=== PATIENT | female | born 1935 | race Caucasian/White ===

== ENCOUNTER 2016-12-16 16:55 | Emergency (ER) | payer MEDICARE, BC ==
[2016-12-16 17:15] VITALS: BP 125/79
--- NOTE | 2016-12-16 17:28 | EDM.PDOC ---
ED HISTORY OF PRESENT ILLNESS - General Chief Complaint: Cardiovascular Problem Stated Complaint: [facility] Time Seen by Provider: 12/16/16 17:25 Source of Information: Reports: Patient, Provider History Limitations: Reports: No limitations - History of Present Illness INITIAL COMMENTS - FREE TEXT/NARRATIVE: 81-year-old female presents to the ED per ambulance after being reviewed at the [facility] by Marietta Yanes.patient has a history of intermittent atrial fibrillation and today presented with a heart rate in the 125 but it did go up as high as a 150 at times. The patient complained of no chest pain with this was perhaps a little dizzy a little short of breath. Decision made therefore to send her to the hospital per ambulance. The medics indicate that heart rate was in the 120s for the most part in route to the hospital. Upon arrival here she is in sinus rhythm at 75 per minute so somewhere along the line she's converted back to sinus rhythm. To my knowledge she's on Cardizem and metoprolol for rate control. She denies cough or sputum production. 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 She is disoriented to time . She knows she's at the hospital but she wasn't sure she was in [place] or not. I do not believe there is a change in mental status. ECG shows sinus rhythm at 79 per minute with the occasional PVC appreciated.no recent changes in medications apparently.reason for attending the clinic today was followup of influenza B infection diagnosed on the of this month. She was on renal adjusted Tamiflu at 30 mg twice a day for 5 days which is completed. She's also been using albuterol nebulizer treatments and wheezing has improved dramatically. Her usually cares for her at the manner. Rarely coughing at present. No further fever and appetite has been well pretty well back to normal history suggests she came into the clinic because she is having a panic attack about the car not starting with elevated heart rate. She was given her heart pill which is lorazepam around this did not seem to help. She was noted to have the diaphoresis on initial exam by her PA. Symptom Onset Date: 12/16/16 Timing/Duration: Reports: Hour(s): Severity: moderate Location, General: Reports: chest (palpitations.) Quality: Reports: Same as previous episode Improves with: Reports: None (lorazepam did not help.) Worsens with: Reports: Movement (walking) Context, General: Denies: Activity, Exercise, Lifting, Sick contact, Trauma, Other Associated Symptoms (General): Reports: confusion, cough, diaphoresis, malaise ( appetite improved), shortness of breath, weakness. 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: Reports: Other (see below) (she was given lorazepam 0.5 mg at noon today for panic attack which did notalleviate her palpitations.) - Related Data Allergies/ADRs: Allergies Allergy/AdvReac Type Severity Reaction Status Date / Time donepezil [From Aricept] Allergy Stomach Verified 12/16/16 17:05 Upset influenza virus vaccine, Allergy Hives Verified 12/16/16 17:05 specific [Influenza Virus Vacc,Specific] Penicillins Allergy Hives Verified 12/16/16 17:05 streptomycin Allergy Hives Verified 12/16/16 17:05 tetracycline [Tetracycline] Allergy Hives Verified 12/16/16 17:05 Home Meds: Home Meds Amitriptyline HCl 100 mg PO BEDTIME 05/23/14 [History] Levothyroxine [Synthroid] 100 mcg PO DAILY 05/23/14 [History] Metoprolol Succinate 50 mg PO DAILY 05/23/14 [History] Ondansetron [Zofran] 4 mg PO Q8HR PRN 05/23/14 [History] atorvaSTATin [Lipitor] 10 mg PO BEDTIME 05/23/14 [History] Memantine [Namenda Xr] 14 mg PO DAILY 06/04/15 [History] Diltiazem [Dilacor XR] 240 mg PO DAILY@0600 #30 cap.er 06/06/15 [Rx] Furosemide [Lasix] 20 mg PO DAILY 06/15/15 [History] Acetaminophen [Tylenol Extra Strength] 1,000 mg PO BID PRN 12/12/15 [History] Docusate Sodium [Colace] 100 mg PO DAILY 12/12/15 [History] LORazepam [Ativan] 0.5 mg PO Q8H PRN 12/12/15 [History] Promethazine [Phenergan] 12.5 mg PO Q4H PRN 12/12/15 [History] Pantoprazole [Protonix] 40 mg PO BIDAC #60 tab.cr 12/15/15 [Rx] Warfarin [Coumadin] 2.5 mg PO DAILY 12/23/15 [History] Aspirin 81 mg PO DAILY 12/31/15 [History] Lactobacillus Acidophilus [Acidophilus] 1 cap PO BID 12/31/15 [History] Digoxin [Lanoxin] 125 mcg PO DAILY #15 tablet 12/16/16 [Rx] Past Medical History - Past Health History Medical/Surgical History: Denies Medical/Surgical History HEENT History: Reports: Impaired vision Other HEENT History: reading Glasses Cardiovascular History: Reports: Afib (chronically anticoagulated with Coumadin. ), Heart Failure, High cholesterol, Hypertension, SOB on exertion Other Cardiovascular History: Afib Respiratory History: Reports: PE Other Respiratory History: Daughters report, "Last thursday pt came in with blood clot in L lung and bilateral legs." Pt was in the hospital for 4 days in Jun 2015. 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: Reports: Other OB/BYN History: Hysterectomy Musculoskeletal History: Reports: Back pain, chronic, Other (see below) Other Musculoskeletal History: degenrative joint disease Neurological History: Reports: Other (see below) (Organic brain disease and is on Namenda.) Psychiatric History: Reports: Anxiety, Dementia Endocrine/Metabolic History: Reports: Hypothyroidism - Infectious Disease History Infectious Disease History: Reports: Chicken pox - Past Surgical History GI Surgical History: Reports: Appendectomy, Hernia, abdominal Female Surgical History: Reports: Hysterectomy Endocrine Surgical History: Reports: None Musculoskeletal Surgical History: Reports: Hip replacement Other Musculoskeletal Surgeries/Procedures:: left Social & Family History - Family History Family Medical History: Noncontributory HEENT: Reports: None - Tobacco Use Smoking Status *Q: Never Smoker Second Hand Smoke Exposure: No - Caffeine Use Caffeine Use: Reports: None - Alcohol Use Days Per Week of Alcohol Use: 0 Number of Drinks Per Day: 0 Total Drinks Per Week: 0 - Recreational Drug Use Recreational Drug Use: No - Living Situation & Occupation Living situation: Reports: other (Both her and her lived in the [facility]--assisted [place]) Occupation: retired ED ROS GENERAL - Review of Systems Review Of Systems: See Below Constitutional: Reports: weakness, other (seems to be recovering very well from influenza type B diagnosed on December 12). Denies: fever, chills, malaise, fatigue, decreased appetite, weight loss HEENT: Reports: No symptoms Respiratory: Denies: Shortness of Breath, Wheezing, Pleuritic Chest Pain, Cough , Sputum, Hemoptysis Cardiovascular: Reports: Blood pressure problem (better now.), Edema (little bit in her ankles chronically), Palpitations. Denies: Chest pain, Claudication (chronic hypertension controlled with medications), Lightheadedness, Orthopnea GI/Abdominal: Reports: Constipation, Decreased appetite : Reports: frequency, incontinence (both urge and stress incontinence) Musculoskeletal: Reports: shoulder pain (sometimes shoulder pain), back pain, joint pain (knees and hips at times) Skin: Reports: no symptoms Neurological: Reports: Confusion (has organic brain disease.), Other (as no short-term memory left.) Psychiatric: Reports: Anxiety, Confusion Hematologic/Lymphatic: Reports: no symptoms Immunologic: Reports: no symptoms ED EXAM, GENERAL - Physical Exam Exam: See Below Exam Limited By: No limitations General Appearance: alert, WD/WN, no apparent distress, other (very pleasant lady) Eye Exam: bilateral eye: normal inspection Ears: normal TMs Throat/Mouth: Normal inspection, Normal lips, Normal oropharynx Head: atraumatic, normocephalic Neck: normal inspection, supple, non-tender, full range of motion. No: carotid bruit, lymphadenopathy (R) Respiratory/Chest: no respiratory distress, no accessory muscle use, crackles ( few crackles appreciated bases of lungs bilaterally a little worse on the right as compared to the left.) Cardiovascular: regular rate, rhythm (sinus rhythm at 75 per minute), no gallop , no murmur, no rub. No: normal peripheral pulses Peripheral Pulses: 1+: posterior tibial (L), posterior tibial (R), dorsalis pedis (L), dorsalis pedis (R) GI/Abdominal: normal bowel sounds, soft, non tender, no organomegaly, other (no abdominal surgical scars noted.) Back Exam: normal inspection, full range of motion. No: CVA tenderness (L), CVA tenderness (R), paraspinal tenderness Extremities: pedal edema (mild pedal edema around the ankles bilaterally. She is wearing compression stockings) Neurological: alert, CN II-XII intact, normal reflexes, no motor/sensory deficits. No: oriented, normal cognition Psychiatric: normal affect, normal mood Skin Exam: Warm, Dry, Intact, Normal color, No rash EKG INTERPRETATION EKG Date: 12/16/16 Time: 17:10 Rhythm: NSR Rate (beats/min): 79 (occasional PVC.) [place]: LAD-left axis deviation (mild left testis deviation at -14.) P-wave: present QRS: normal ST-T: normal QT: normal Course - Vital Signs Last Recorded V/S: Last Vital Signs Temp 36.7 C 12/16/16 16:55 Pulse 78 12/16/16 16:55 Resp 17 12/16/16 16:55 BP 125/79 12/16/16 16:55 Pulse Ox 95 12/16/16 16:55 - Orders/Labs/Meds Orders: Active Orders 24 hr Category Date Time Status EKG Documentation Completion [RC] STAT Care 12/16/16 17:27 Active Oxygen Therapy [RC] ASDIRECTED Care 12/16/16 17:27 Active Chest 1V Frontal [CR] Stat Exams 12/16/16 17:26 Taken URINALYSIS W/MICROSCOPIC [UA W/MICROSCOPIC] [URIN] Stat Lab 12/16/16 17:27 Uncollected Sodium Chloride 0.9% [Normal Saline] 1,000 ml Med 12/16/16 17:30 Active IV ASDIRECTED Medication Orders Sodium Chloride (Normal Saline) 1,000 mls @ 100 mls/hr IV ASDIRECTED EDWARD Last Admin: 12/16/16 17:35 Dose: 100 mls/hr Labs: Laboratory Tests 12/16/16 12/16/16 12/16/16 Range/Units 18:05 18:05 18:05 WBC 8.66 (3.98-10.04) K/mm3 RBC 4.58 (3.98-5.22) M/mm3 Hgb 13.5 (11.2-15.7) gm/L Hct 41.5 (34.1-44.9) % MCV 90.6 (79.4-94.8) fl MCH 29.5 (25.6-32.2) pg MCHC 32.5 (32.2-35.5) g/dl RDW Std Deviation 69.0 H (36.4-46.3) fL Plt Count 221 (182-369) K/mm3 MPV 11.0 (9.4-12.3) fl Neutrophils % (Manual) 68 H (40-60) % Band Neutrophils % 0 (0-10) % Lymphocytes % (Manual) 18 L (20-40) % Atypical Lymphs % 0 % Monocytes % (Manual) 11 H (2-10) % Eosinophils % (Manual) 3 (0.7-5.8) % Basophils % (Manual) 0 L (0.1-1.2) Platelet Estimate Adequate Plt Morphology Comment Normal RBC Morph Comment Normal PT 42.0 H (8.0-13.0) SECONDS INR 3.55 Sodium 143 (136-145) mEq/L Potassium 4.1 (3.5-5.1) mEq/L Chloride 108 H (98-107) mEq/L Carbon Dioxide 25 (21-32) mEq/L Anion Gap 14.1 (5-15) BUN 30 H (7-18) mg/dL Creatinine 1.5 H (0.55-1.02) mg/dL Est Cr Clr Drug Dosing 23.26 mL/min Estimated GFR (MDRD) 33 (>60) mL/min BUN/Creatinine Ratio 20.0 H (14-18) Glucose 107 (83-115) mg/dL Calcium 8.9 (8.5-10.1) mg/dL Magnesium 2.2 (1.8-2.4) mg/dl Total Bilirubin 0.2 (0.2-1.0) mg/dL AST 33 (15-37) U/L ALT 37 (14-59) U/L Alkaline Phosphatase 127 H (46-116) U/L CK-MB (CK-2) 1.2 (0-3.6) ng/ml Troponin I < 0.017 (0.00-0.056) ng/mL C-Reactive Protein < 0.2 (<1.0) mg/dL B-Natriuretic Peptide (0-100) pg/mL Total Protein 6.7 (6.4-8.2) g/dl Albumin 3.1 L (3.4-5.0) g/dl Globulin 3.6 gm/dL Albumin/Globulin Ratio 0.9 L (1-2) // Range/Units 18:05 WBC (3.98-10.04) K/mm3 RBC (3.98-5.22) M/mm3 Hgb (11.2-15.7) gm/L Hct (34.1-44.9) % MCV (79.4-94.8) fl MCH (25.6-32.2) pg MCHC (32.2-35.5) g/dl RDW Std Deviation (36.4-46.3) fL Plt Count (182-369) K/mm3 MPV (9.4-12.3) fl Neutrophils % (Manual) (40-60) % Band Neutrophils % (0-10) % Lymphocytes % (Manual) (20-40) % Atypical Lymphs % % Monocytes % (Manual) (2-10) % Eosinophils % (Manual) (0.7-5.8) % Basophils % (Manual) (0.1-1.2) Platelet Estimate Plt Morphology Comment RBC Morph Comment PT (8.0-13.0) SECONDS INR Sodium (136-145) mEq/L Potassium (3.5-5.1) mEq/L Chloride (98-107) mEq/L Carbon Dioxide (21-32) mEq/L Anion Gap (5-15) BUN (7-18) mg/dL Creatinine (0.55-1.02) mg/dL Est Cr Clr Drug Dosing mL/min Estimated GFR (MDRD) (>60) mL/min BUN/Creatinine Ratio (14-18) Glucose (83-115) mg/dL Calcium (8.5-10.1) mg/dL Magnesium (1.8-2.4) mg/dl Total Bilirubin (0.2-1.0) mg/dL AST (15-37) U/L ALT (14-59) U/L Alkaline Phosphatase (46-116) U/L CK-MB (CK-2) (0-3.6) ng/ml Troponin I (0.00-0.056) ng/mL C-Reactive Protein (<1.0) mg/dL B-Natriuretic Peptide 310 H (0-100) pg/mL Total Protein (6.4-8.2) g/dl Albumin (3.4-5.0) g/dl Globulin gm/dL Albumin/Globulin Ratio (1-2) Meds: Medications Generic Name Dose Route Start Last Admin Trade Name Freq PRN Reason Stop Dose Admin Sodium Chloride 1,000 mls @ 100 mls/hr 12/16/16 17:30 12/16/16 17:35 Normal Saline IV Not Given ASDIRECTED EDWARD Discontinued Medications Generic Name Dose Route Start Last Admin Trade Name Freq PRN Reason Stop Dose Admin Furosemide 40 mg 12/16/16 18:52 Lasix PO 12/16/16 18:53 ONETIME ONE - Radiology Interpretation Free Text/Narrative:: 81-year-old female transferred to our hospital for evaluation of rapid atrial fibrillation when at at the [facility] this afternoon. Rate went as high as 150 per minute. She had attended the clinic because of panic attack and care provider recognizes his palpitations in her chest. She has a history of intermittent atrial fibrillation. She is currently on Cardizem 240 mg once daily and metoprolol 50 twice a day for rate control. She was in the 120s en route to [place] in the [place] and somewhere along the line she's converted back to sinus rhythm in the ED she is now 75 per minute with no signs of ischemia. She does have a few crackles in both bases of her lungs. Plan routine labs including serum magnesium and chest x-ray to be carried out. I offered her supper but she indicates she is not hungry at this time. - Re-Assessments/Exams Free Text/Narrative Re-Assessment/Exam: 12/16/16 18:32 chest x-ray although poor inspiratory view reveals borderline cardiomegaly but clear lung fenton without evidence of pleural effusion or vascular congestion. 12/16/16 18:47 white count is 8.66. Differential pending hemoglobin 13.5 hematocrit of 41.5 PT is 42 and INR is 2.55 bit supratherapeutic. BNP is mildly elevated at 310. Pleasant normal term 21,000. Awaiting the rest of her chemistry and cardiac markers. Departure - Departure Time of Disposition: 18:54 Disposition: Home, Self-Care 01 Condition: fair Clinical Impression: Paroxysmal atrial fibrillation with rapid ventricular response, Supratherapeutic INR Congestive heart failure Qualifiers: Congestive heart failure type: diastolic Congestive heart failure chronicity: acute on chronic Qualified Code(s): I50.33 - Acute on chronic diastolic ( congestive) heart failure Prescriptions: Digoxin [Lanoxin] 125 mcg PO DAILY #15 tablet Referrals: Rody Yanes PA-C [Primary Care Provider] - Forms: ED Department Discharge Additional Instructions: Evaluation in the emergency today in regards to development of rapid atrial fibrillation while at the clinic in [place] today for checkup. Her rate went as high as 150 beats per minute. He was therefore transported to [facility] for care. However in route to the hospital your heart converted back to normal sinus regular rhythm at 75 beats per minute. Exam however does reveal increased fluid in the bottom of both lungs and this is what happened when the heart was going too fast for a period of time. He therefore needs to take the Lasix 40 mg tablet when you get home tonight which will make you've a rate of some of the fluid out of your lungs. No medication will be one half tablet of Lanoxin 125 mcg--take one half tablet once daily to help control age of fibrillation rate. Followup with Jennifer Yanes in clinic in 10 days' time or sooner if there is any further problems .All other medications are to stay the same - My Orders Last 24 Hours: My Active Orders 12/16/16 17:26 Chest 1V Frontal [CR] Stat 12/16/16 17:27 EKG Documentation Completion [RC] STAT Oxygen Therapy [RC] ASDIRECTED URINALYSIS W/MICROSCOPIC [UA W/MICROSCOPIC] [URIN] Stat 12/16/16 17:30 Sodium Chloride 0.9% [Normal Saline] 1,000 ml IV ASDIRECTED - Assessment/Plan Last 24 Hours: My Active Orders 12/16/16 17:26 Chest 1V Frontal [CR] Stat 12/16/16 17:27 EKG Documentation Completion [RC] STAT Oxygen Therapy [RC] ASDIRECTED URINALYSIS W/MICROSCOPIC [UA W/MICROSCOPIC] [URIN] Stat 12/16/16 17:30 Sodium Chloride 0.9% [Normal Saline] 1,000 ml IV ASDIRECTED
[2016-12-16] MEDS ORDERED: Sodium Chloride 0.9% 1,000 ML IV SCH (17:30)
[2016-12-16] MEDS ORDERED: Furosemide 40 MG Tab PO ONE (18:52)
--- NOTE | 2016-12-17 07:10 | CR ---
Chest: Portable view of the chest was obtained. Comparison: Previous chest x-ray of 12/31/15. Moderately large hiatal hernia is seen. Heart size appears within normal limits for portable technique. Mild tortuosity of the thoracic aorta is seen. Linear areas of scarring noted within both lung bases. Lungs otherwise are clear. Mild scoliosis present within the spine with osteopenia. Impression: 1. Incidental findings as noted above. Nothing acute is identified. Diagnostic code #2
== END 2016-12-16 19:35 | disposition home or self-care (01) ==
LOC: SUPCPDRO 16:55 → JD.ED 16:55
DX: I48.91 Unspecified atrial fibrillation (principal); G93.9 Disorder of brain, unspecified; I50.9 Heart failure, unspecified; E78.00 Pure hypercholesterolemia, unspecified; I10 Essential (primary) hypertension; E03.9 Hypothyroidism, unspecified; F41.9 Anxiety disorder, unspecified; E05.00 Thyrotoxicosis with diffuse goiter without thyrotoxic crisis or storm; F03.90 Unspecified dementia, unspecified severity, without behavioral disturbance, psychotic disturbance, mood disturbance, and anxiety; Z88.0 Allergy status to penicillin; Z88.8 Allergy status to other drugs, medicaments and biological substances; Z79.899 Other long term (current) drug therapy
CPT/HCPCS: 36415; 71010; 80053; 82553; 83735; 83880; 84484; 85025; 85610; 86140; 93005; 99285; A9270

== ENCOUNTER 2017-06-24 10:34 | Inpatient (IN) | payer MEDICARE, BC ==
[2017-06-24] MEDS ORDERED: Sodium Chloride 0.9% 10 ML Syringe FLUSH PRN ×2 (11:19→12:44)
[2017-06-24] MEDS ORDERED: Sodium Chloride 0.9% 500 ML IV ONE (11:21)
--- NOTE | 2017-06-24 11:25 | EDM.PDOC ---
ED HPI GENERAL MEDICAL PROBLEM - General Chief Complaint: Abdominal Pain Stated Complaint: ABDOMINAL PAIN Time Seen by Provider: 06/24/17 11:07 Source of Information: Reports: Patient, Family History Limitations: Reports: Other (Alzheimer's) - History of Present Illness INITIAL COMMENTS - FREE TEXT/NARRATIVE: Patient is a 81-year-old female who presents to the ED complaining of abdominal pain, nausea, and intermittent chest discomfort. Daughters are present. Patient has a history of Alzheimer's. They report the patient has been complaining of these symptoms for the past week. She does have a history constipation. Unknown when she had her last bowel movement. In addition she has recurrent urinary tract infections. She was seen by her PCP yesterday with labwork obtained. Results this morning indicated elevated white blood count and CRP. Thus the patient was instructed to come to the ED for further evaluation and treatment. Pain to the abdomen is to the upper and lower portion. Patient is unclear on describing the type of pain. She has no fever although she reports the ED with temperature 99.9. She denies any chest, shows breath, nausea, dysuria with admission to the ED. She does have history of atrial fibrillation and is on Coumadin. She's also on metoprolol and Cardizem. Past medical history includes: A. fib, heart failure, hyperglyceridemia, hypertension, PE, your current UTIs, Graves' disease, chronic back pain. Current medications as listed below. Patient's had hernia repair and also hysterectomy. She still has her gallbladder and appendix. Abdomen Pain Score (Numeric/FACES): 5 Headache Pain Score (Numeric/FACES): 8 - Related Data Allergies Allergy/AdvReac Type Severity Reaction Status Date / Time influenza virus vaccine, Allergy Hives Verified 06/24/17 18:08 specific [Influenza Virus Vacc,Specific] Penicillins Allergy Hives Verified 06/24/17 18:08 streptomycin Allergy Hives Verified 06/24/17 18:08 tetracycline [Tetracycline] Allergy Hives Verified 06/24/17 18:08 donepezil [From Aricept] AdvReac Stomach Verified 06/26/17 08:47 Upset Home Meds: Home Meds Amitriptyline HCl 100 mg PO BEDTIME 05/23/14 [History] Levothyroxine [Synthroid] 88 mcg PO ACBREAKFAST 05/23/14 [History] Metoprolol Succinate 50 mg PO DAILY 05/23/14 [History] atorvaSTATin [Lipitor] 10 mg PO BEDTIME 05/23/14 [History] Diltiazem [Dilacor XR] 240 mg PO DAILY@0600 #30 cap.er 06/06/15 [Rx] Furosemide [Lasix] 20 mg PO 0914 06/15/15 [History] LORazepam [Ativan] 0.5 - 1 mg PO Q8H PRN 12/12/15 [History] Warfarin [Coumadin] 2 mg PO 1800 12/23/15 [History] Acetaminophen 1,000 mg PO 0621 06/24/17 [History] Digoxin 62.5 mcg PO 1200 06/24/17 [History] Docusate Sodium [Colace] 100 mg PO DAILY 06/24/17 [History] Iron Aspgly&PS/B12/C/Ca/FA/Suc [Niferex-150 Forte] 1 cap PO BID 06/24/17 [ History] L. Acidophilus/Lactobac Spor [Acidophilus X-Str Captab] 1 tab PO BID 06/24/17 [ History] Memantine HCl [Namenda] 10 mg PO BID 06/24/17 [History] Ondansetron HCl [Zofran] 4 mg PO Q8H PRN 06/24/17 [History] Polyethylene Glycol 3350 [MiraLAX] 17 gm PO DAILY 06/24/17 [History] Promethazine HCl 12.5 mg PO Q4H PRN 06/24/17 [History] Famotidine [Pepcid] 20 mg PO BID #60 tablet 06/26/17 [Rx] Levofloxacin [Levaquin] 500 mg PO Q24H #5 tablet 06/26/17 [Rx] Past Medical History - Past Health History Medical/Surgical History: Denies Medical/Surgical History HEENT History: Reports: Cataract, Impaired Vision Other HEENT History: reading Glasses Cardiovascular History: Reports: Afib, Heart Failure, High Cholesterol, Hypertension, SOB on Exertion Other Cardiovascular History: Afib Respiratory History: Reports: PE Other Respiratory History: Daughters report, "Last thursday pt came in with blood clot in L lung and bilateral legs." Pt was in the hospital for 4 days in Jun 2015. Genitourinary History: Reports: UTI, Recurrent Other Genitourinary History: graves disease [employer] History: Reports: Other OB/BYN History: Hysterectomy Musculoskeletal History: Reports: Back Pain, Chronic Other Musculoskeletal History: degenrative joint disease Neurological History: Reports: Other (See Below) Psychiatric History: Reports: Anxiety, Dementia Endocrine/Metabolic History: Reports: Hypothyroidism - Infectious Disease History Infectious Disease History: Reports: Chicken Pox - Past Surgical History GI Surgical History: Reports: Hernia, Abdominal Endocrine Surgical History: Reports: None Musculoskeletal Surgical History: Reports: Hip Replacement Social & Family History - Family History Family Medical History: Noncontributory HEENT: Reports: None - Tobacco Use Smoking Status *Q: Never Smoker Second Hand Smoke Exposure: No - Caffeine Use Caffeine Use: Reports: Coffee - Alcohol Use Days Per Week of Alcohol Use: 0 Number of Drinks Per Day: 0 Total Drinks Per Week: 0 - Recreational Drug Use Recreational Drug Use: No - Living Situation & Occupation Living situation: Reports: Other Occupation: Retired ED ROS GENERAL - Review of Systems Review Of Systems: ROS reveals no pertinent complaints other than HPI. ED EXAM, GI/ABD - Physical Exam Exam: See Below Exam Limited By: Other (Alzheimer's dementia) General Appearance: Alert, WD/WN, No Apparent Distress Ears: Hearing Grossly Normal Nose: Normal Inspection, Normal Mucosa, No Blood Throat/Mouth: Normal Inspection, Normal Oropharynx, Normal Voice, No Airway Compromise Neck: Normal Inspection, Supple, Non-Tender, Full Range of Motion Respiratory/Chest: No Respiratory Distress, Lungs Clear, Normal Breath Sounds, No Accessory Muscle Use, Chest Non-Tender Cardiovascular: Normal Peripheral Pulses, Regular Rate, Rhythm, Systolic Murmur GI/Abdominal Exam: Soft, Non-Tender, No Organomegaly, No Distention, Abnormal Bowel Sounds (Hyperactive) Back Exam: Normal Inspection. No: CVA Tenderness (L), CVA Tenderness (R) Extremities: Normal Inspection, Normal Range of Motion, Non-Tender, No Pedal Edema, Normal Capillary Refill Neurological: Alert, Oriented, CN II-XII Intact, Normal Cognition, No Motor/ Sensory Deficits Psychiatric: Normal Affect, Normal Mood Skin Exam: Warm, Dry, Intact, Normal Color, No Rash Course - Vital Signs Last Recorded V/S: Last Vital Signs Temp 98.4 F 06/28/17 11:36 Pulse 67 06/28/17 11:36 Resp 19 06/28/17 11:36 BP 111/66 06/28/17 11:36 Pulse Ox 96 06/28/17 11:36 - Orders/Labs/Meds Labs: Laboratory Tests 06/24/17 06/24/17 06/24/17 Range/Units 10:55 10:55 10:55 WBC 23.56 H (3.98-10.04) K/mm3 RBC 4.30 (3.98-5.22) M/mm3 Hgb 13.5 (11.2-15.7) gm/L Hct 40.1 (34.1-44.9) % MCV 93.3 (79.4-94.8) fl MCH 31.4 (25.6-32.2) pg MCHC 33.7 (32.2-35.5) g/dl RDW Std Deviation 46.9 H (36.4-46.3) fL Plt Count 267 (182-369) K/mm3 MPV 11.4 (9.4-12.3) fl Neut % (Auto) 89.4 H (34.0-71.1) % Lymph % (Auto) 4.6 L (19.3-51.7) % [place] % (Auto) 5.5 (4.7-12.5) % Eos % (Auto) 0.1 L (0.7-5.8) Baso % (Auto) 0.1 (0.1-1.2) % Neut # (Auto) 21.07 H (1.56-6.13) K/mm3 Lymph # (Auto) 1.09 L (1.18-3.74) K/mm3 [place] # (Auto) 1.30 H (0.24-0.36) K/mm3 Eos # (Auto) 0.02 L (0.04-0.36) K/mm3 Baso # (Auto) 0.02 (0.01-0.08) K/mm3 Manual Slide Review Abnormal smear PT 50.8 H* (8.0-13.0) SECONDS INR 4.25 Sodium 138 (136-145) mEq/L Potassium 3.2 L (3.5-5.1) mEq/L Chloride 101 (98-107) mEq/L Carbon Dioxide 28 (21-32) mEq/L Anion Gap 12.2 (5-15) BUN 18 (7-18) mg/dL Creatinine 1.5 H (0.55-1.02) mg/dL Est Cr Clr Drug Dosing 24.33 mL/min Estimated GFR (MDRD) 33 (>60) mL/min BUN/Creatinine Ratio 12.0 L (14-18) Glucose 141 H (83-115) mg/dL Lactic Acid (0.4-2.0) mmol/L Calcium 10.4 H (8.5-10.1) mg/dL Total Bilirubin 0.6 (0.2-1.0) mg/dL AST 24 (15-37) U/L ALT 24 (14-59) U/L Alkaline Phosphatase 129 H (46-116) U/L Troponin I < 0.017 (0.00-0.056) ng/mL C-Reactive Protein 26.8 H* (<1.0) mg/dL Total Protein 7.7 (6.4-8.2) g/dl Albumin 3.3 L (3.4-5.0) g/dl Globulin 4.4 gm/dL Albumin/Globulin Ratio 0.8 L (1-2) Triglycerides (<150) mg/dL Cholesterol (<200) mg/dL LDL Cholesterol Direct (<100) mg/dL HDL Cholesterol (40-59) mg/dL Lipase 135 (73-393) U/L TSH 3rd Generation 2.105 (0.358-3.74) uIU/mL Urine Color (Yellow) Urine Appearance (Clear) Urine pH (5.0-8.0) Ur Specific [place] (1.005-1.030) Urine Protein (Negative) Urine Glucose (UA) (Negative) Urine Ketones (Negative) Urine Occult Blood (Negative) Urine Nitrite (Negative) Urine Bilirubin (Negative) Urine Urobilinogen (0.2-1.0) Ur Leukocyte Esterase (Negative) Urine RBC (0-5) /hpf Urine WBC (0-5) /hpf Ur Epithelial Cells (0-5) /hpf Urine Bacteria (FEW) /hpf Urine Mucus (FEW) /hpf 06/24/17 06/24/17 06/24/17 Range/Units 10:55 11:40 12:20 WBC (3.98-10.04) K/mm3 RBC (3.98-5.22) M/mm3 Hgb (11.2-15.7) gm/L Hct (34.1-44.9) % MCV (79.4-94.8) fl MCH (25.6-32.2) pg MCHC (32.2-35.5) g/dl RDW Std Deviation (36.4-46.3) fL Plt Count (182-369) K/mm3 MPV (9.4-12.3) fl Neut % (Auto) (34.0-71.1) % Lymph % (Auto) (19.3-51.7) % [place] % (Auto) (4.7-12.5) % Eos % (Auto) (0.7-5.8) Baso % (Auto) (0.1-1.2) % Neut # (Auto) (1.56-6.13) K/mm3 Lymph # (Auto) (1.18-3.74) K/mm3 [place] # (Auto) (0.24-0.36) K/mm3 Eos # (Auto) (0.04-0.36) K/mm3 Baso # (Auto) (0.01-0.08) K/mm3 Manual Slide Review PT (8.0-13.0) SECONDS INR Sodium (136-145) mEq/L Potassium (3.5-5.1) mEq/L Chloride (98-107) mEq/L Carbon Dioxide (21-32) mEq/L Anion Gap (5-15) BUN (7-18) mg/dL Creatinine (0.55-1.02) mg/dL Est Cr Clr Drug Dosing mL/min Estimated GFR (MDRD) (>60) mL/min BUN/Creatinine Ratio (14-18) Glucose (83-115) mg/dL Lactic Acid 3.0 H (0.4-2.0) mmol/L Calcium (8.5-10.1) mg/dL Total Bilirubin (0.2-1.0) mg/dL AST (15-37) U/L ALT (14-59) U/L Alkaline Phosphatase (46-116) U/L Troponin I (0.00-0.056) ng/mL C-Reactive Protein (<1.0) mg/dL Total Protein (6.4-8.2) g/dl Albumin (3.4-5.0) g/dl Globulin gm/dL Albumin/Globulin Ratio (1-2) Triglycerides 55 (<150) mg/dL Cholesterol 142 (<200) mg/dL LDL Cholesterol Direct 68 (<100) mg/dL HDL Cholesterol 72.0 H (40-59) mg/dL Lipase (73-393) U/L TSH 3rd Generation (0.358-3.74) uIU/mL Urine Color Yellow (Yellow) Urine Appearance Clear (Clear) Urine pH 7.5 (5.0-8.0) Ur Specific [place] 1.025 (1.005-1.030) Urine Protein 2+ H (Negative) Urine Glucose (UA) Negative (Negative) Urine Ketones Negative (Negative) Urine Occult Blood Negative (Negative) Urine Nitrite Negative (Negative) Urine Bilirubin Negative (Negative) Urine Urobilinogen 0.2 (0.2-1.0) Ur Leukocyte Esterase Negative (Negative) Urine RBC Not seen (0-5) /hpf Urine WBC 0-5 (0-5) /hpf Ur Epithelial Cells Not seen (0-5) /hpf Urine Bacteria Rare (FEW) /hpf Urine Mucus Few (FEW) /hpf Meds: Medications Discontinued Medications Generic Name Dose Route Start Last Admin Trade Name Freq PRN Reason Stop Dose Admin Acetaminophen 650 mg 06/24/17 15:40 06/24/17 15:49 Tylenol RECTAL 06/24/17 15:41 650 mg NOW ONE Administration Acetaminophen 650 mg 06/24/17 17:26 Tylenol RECTAL Q6H PRN Pain (mild 1-3) Acetaminophen 975 mg 06/25/17 09:00 06/28/17 09:52 Tylenol PO 975 mg DAILY EDWARD Administration Acetaminophen 650 mg 06/25/17 22:40 06/27/17 04:59 Tylenol PO 650 mg Q6H PRN Administration Pain (mild 1-3) Albuterol/Ipratropium 3 ml 06/24/17 16:52 Duoneb 3.0-0.5 Mg/3 Ml NEB Q4H PRN Shortness Of Breath/wheezing Amitriptyline HCl 100 mg 06/24/17 21:00 06/27/17 20:23 Elavil PO 100 mg BEDTIME EDWARD Administration Bisacodyl 10 mg 06/24/17 17:35 Dulcolax RECTAL DAILY PRN Constipation Bumetanide 0.5 mg 06/26/17 08:48 06/26/17 10:19 Bumex IVPUSH 06/26/17 08:49 0.5 mg ONETIME ONE Administration Diatrizoate Meglum/Diatrizoate Sod 90 ml 06/24/17 13:50 06/24/17 13:51 Gastrografin 37% PO 06/24/17 13:51 90 ml ONETIME ONE Administration Digoxin 62.5 mcg 06/25/17 09:00 06/28/17 09:52 Lanoxin PO 62.5 mcg DAILY EDWARD Administration Diltiazem HCl 240 mg 06/25/17 06:00 06/28/17 06:47 Dilacor Xr PO 240 mg DAILY@0600 EDWARD Administration Diphtheria/Tetanus/Acell Pertussis 0.5 ml 06/25/17 11:21 Adacel IM 06/25/17 11:22 .ONCE ONE Famotidine 20 mg 06/26/17 09:00 06/28/17 09:52 Pepcid PO 20 mg BID EDWARD Administration Furosemide 20 mg 06/25/17 09:00 06/25/17 09:17 Lasix IVPUSH 20 mg DAILY EDWARD Administration Furosemide 20 mg 06/26/17 09:00 06/28/17 09:56 Lasix PO 20 mg DAILY EDWARD Administration Hydralazine HCl 20 mg 06/24/17 17:36 Apresoline IVPUSH Q4H PRN Hypertension Hydralazine HCl 20 mg 06/24/17 19:11 Apresoline IVPUSH Q4H PRN Hypertension Hydromorphone HCl 0.25 mg 06/24/17 17:27 Dilaudid IVPUSH Q2H PRN Pain (severe 7-10) Sodium Chloride 1,000 mls @ 150 mls/hr 06/24/17 11:30 06/25/17 15:56 Normal Saline IV 150 mls/hr ASDIRECTED EDWARD Administration Sodium Chloride 500 mls @ 999 mls/hr 06/24/17 11:21 06/24/17 11:45 Normal Saline IV 06/24/17 11:51 999 mls/hr .BOLUS ONE Administration Sodium Chloride 100 mls @ 65 mls/hr 06/24/17 12:45 06/24/17 13:50 Normal Saline IV 65 mls/hr ASDIRECTED EDWARD Administration Levofloxacin/Dextrose 750 mg/ 150 mls @ 100 mls/hr 06/24/17 18:30 06/24/17 20 :07 Premix IV 100 mls/hr Q24H EDWARD Administration Levofloxacin/Dextrose 750 mg/ 150 mls @ 100 mls/hr 06/26/17 18:30 Premix IV Q48H EDWARD Sodium Chloride 1,000 mls @ 50 mls/hr 06/25/17 22:30 06/25/17 22:32 Normal Saline IV 50 mls/hr ASDIRECTED EDWARD Administration Levofloxacin/Dextrose 750 mg/ 150 mls @ 100 mls/hr 06/26/17 18:30 06/26/17 18 :33 Premix IV 100 mls/hr Q48H EDWARD Administration Magnesium Sulfate 2 gm/ Premix 50 mls @ 50 mls/hr 06/27/17 10:00 06/27/17 10: 01 IV 06/27/17 10:59 50 mls/hr ONETIME ONE Administration Iopamidol 100 ml 06/24/17 12:44 06/24/17 13:50 Isovue-300 (61%) IVPUSH 06/24/17 12:45 100 ml ONETIME ONE Administration Levothyroxine Sodium 88 mcg 06/25/17 09:00 Synthroid PO DAILY EDWARD Levothyroxine Sodium 88 mcg 06/25/17 06:00 06/28/17 06:47 Synthroid PO 88 mcg ACBREAKFAST EDWARD Administration Lorazepam 0.5 mg 06/26/17 08:45 06/27/17 20:24 Ativan PO 0.5 mg Q8H PRN Administration Anxiety Magnesium Oxide 400 mg 06/26/17 12:30 06/26/17 13:45 Magnesium Oxide PO 06/26/17 12:31 400 mg ONETIME ONE Administration Magnesium Sulfate 1 dose 06/24/17 17:30 Pharmacy To Dose - Magnesium Replacement .XX ASDIRECTED EDWARD Memantine 10 mg 06/24/17 21:00 06/28/17 09:51 Namenda PO 10 mg BID EDWARD Administration Metoprolol Succinate 50 mg 06/25/17 09:00 06/28/17 09:50 Toprol Xl PO 50 mg DAILY EDWARD Administration Metoprolol Tartrate 5 mg 06/24/17 17:37 Lopressor IVPUSH Q4H PRN Tachycardia Metoprolol Tartrate 5 mg 06/24/17 19:11 Lopressor IVPUSH Q4H PRN Tachycardia Non-Formulary Medication 1 tab 06/24/17 21:00 L. Acidophilus/Lactobac Spor [Acidophilus X-Str Captab] PO BID DEWARD Ondansetron HCl 4 mg 06/24/17 16:52 Zofran IV Q6H PRN Nausea/Vomiting Pantoprazole Sodium 40 mg 06/24/17 17:45 06/27/17 17:44 Protonix Iv IVPUSH Not Given DAILY [facility] Pantoprazole Sodium 40 mg 06/26/17 17:00 Protonix PO BIDMEALS [facility] Pneumococcal 13-Valent Conj Vacc 0.5 ml 06/25/17 11:22 Prevnar 13 IM 06/25/17 11:23 .ONCE ONE Potassium Chloride 1 dose 06/24/17 17:30 Pharmacy To Dose - Potassium Replacement .XX ASDIRECTED EDWARD Potassium Chloride 20 meq 06/24/17 21:00 06/25/17 00:57 Klor-Con M20 PO 06/25/17 00:01 20 meq Q3HR EDWARD Administration Potassium Chloride 40 meq 06/26/17 12:30 06/26/17 17:32 Klor-Con M20 PO 06/26/17 16:31 40 meq Q4H EDWARD Administration Sodium Chloride 10 ml 06/24/17 11:19 06/24/17 11:40 Saline Flush FLUSH 10 ml ASDIRECTED PRN Administration Keep Vein Open Sodium Chloride 10 ml 06/24/17 12:44 06/24/17 13:50 Saline Flush FLUSH 10 ml ONETIME PRN Administration IV FLUSH - Re-Assessments/Exams Free Text/Narrative Re-Assessment/Exam: Patient's vital signs on admission to the ED were 118/90 pulse 75. Urine examination blood pressure was in the low 90s. Patient does have a temperature 99.1. He was reported that patient's blood work obtained yesterday by PCP revealed a WBC of 20 and CRP 11 thus was referred to the ED for further evaluation. Unclear the patient is septic at this point but will go ahead with a 500 mils bolus of normal saline and reassess. IV was established with normal saline. Initial labs and studies include CBC, chem 14, lipase, troponin, TSH, UA, 2 view of the abdomen, blood cultures 2, lactic acid, chest x-ray, and EKG. EKG revealed: Sinus rhythm at a rate of [address] changes. Labs reviewed: White blood cell count elevated 23.56, hemoglobin 13.5, platelet count 267, neutrophil percentage is elevated 89.4 with a left shift of 21.07. PT 50.8. INR 4.5 which is supratherapeutic. Ranges post be 2-3. Sodium 138, potassium mildly low at 3.2, AG 12.2, creatinine 1.5, glucose 141, lactic acid 3.0 which is high calcium 10.4, total bilirubin 0.6, alk phosphatase 129, troponin less than 0.017, CRP is quite elevated at 26.8. Lipase 135. TSH 2.105. X-ray of the abdomen did reveal a few air-fluid levels with some mild distention of the colon present. Chest x-ray reviewed: Cardiomegaly with what appears to be tortuous aorta. Mild pulmonary vascularization. Final Interpretation pending. Reviewed with Dr. Rivera. UA is pending. CT of the abdomen and pelvis with IV/ORAl contrast ordered. 06/24/17 14:26 UA revealed no findings concerning for infection. CT the abdomen and pelvis revealed inflammatory change of the inferior head of the pancreas which is felt compatible with pancreatitis. No findings of pancreatic abscesses seen at this time. Other incidental findings as noted above.. 06/24/17 15:[address] Melendez otolaryngology surgeon hospitalists. He has accepted the patient. She will be admitted inpatient for pancreatitis, supratherapeutic INR, Hypokalemia, and abdominal pain. Departure - Departure Time of Disposition: 15:41 Disposition: Admitted As Inpatient 66 Condition: Fair Clinical Impression: Subtherapeutic international normalized ratio (INR), Hypokalemia Pancreatitis Qualifiers: Chronicity: acute Pancreatitis type: idiopathic Acute pancreatitis complication : unspecified Qualified Code(s): K85.00 - Idiopathic acute pancreatitis without necrosis or infection Abdominal pain Qualifiers: Abdominal location: generalized Qualified Code(s): R10.84 - Generalized abdominal pain - Discharge Information
[2017-06-24] MEDS ORDERED: Iopamidol 612 MG/ML 100 ML Bottle IVPUSH ONE (12:44)
[2017-06-24] MEDS ORDERED: Sodium Chloride 0.9% 100 ML IV SCH (12:45)
--- NOTE | 2017-06-24 12:58 | CR ---
Abdomen: Supine and upright views of the abdomen were obtained. Comparison: Previous abdominal x-ray of 06/23/17. Bowel gas pattern appears to be within normal limits. Left hip prosthesis is noted. Scoliosis is noted within the spine. No free air is identified. Several air-fluid levels within the colon are seen which are felt to be within normal limits. Impression: 1. Nonspecific two-view abdominal x-ray. Diagnostic code #2
--- NOTE | 2017-06-24 12:58 | CR ---
Chest: Frontal view of the chest was obtained. Comparison: Previous chest x-ray of 12/16/16. Heart size at the upper limits of normal. Moderately large hiatal hernia is seen. Minimal scarring is seen within both lung bases. Lungs otherwise are clear. Bony structures are grossly intact. Impression: 1. Incidental findings. Nothing acute is appreciated on frontal chest x-ray. Diagnostic code #2
[2017-06-24] MEDS ORDERED: Diatrizoate Meglumine/Diatrizoate Sodium 37% 120 ML Bottle PO ONE (13:50)
--- NOTE | 2017-06-24 14:35 | CT ---
CT abdomen and pelvis Technique: Multiple axial sections were obtained from above the dome of the diaphragm inferiorly through the pubic symphysis. Intravenous and oral contrast was utilized. Comparison: Previous abdominal and pelvic CT exam of 01/17/14. Findings: Moderately large hiatal hernia is seen. Small cyst is noted within the dome of the right lobe of the liver measuring 7 mm. Visualized lung bases show nothing acute. No additional abnormality is seen within the liver. Spleen appears normal. Adrenal glands show no nodule. Gallbladder shows no calcified gallstones. Kidneys show symmetric contrast enhancement without hydronephrosis or mass. Mild inflammatory change is seen off the inferior pancreatic head which is felt compatible with pancreatitis. No fluid collections are seen around the pancreas. Aorta shows no aneurysmal dilatation. No retroperitoneal adenopathy is seen. No mesenteric abnormalities are seen. No pelvic mass or adenopathy is identified. Appendix is not definitely seen. Bone window settings were reviewed which show mild compression deformity of L5 which appears old. Slight scoliosis and mild degenerative change is seen. Delayed images show contrast within the distal ureters and within the bladder. Impression: 1. Inflammatory change of the inferior head of the pancreas which is felt compatible with pancreatitis. 2. No findings of pancreatic abscess is seen at this time. 3. Other incidental findings as noted above. Diagnostic code #3
[2017-06-24] MEDS ORDERED: Acetaminophen 650 MG Supp RECTAL ONE (15:40)
[2017-06-24] MEDS ORDERED: Albuterol/Ipratropium 3.0-0.5 MG/3 ML Neb Soln NEB PRN (16:52)
[2017-06-24] MEDS ORDERED: Ondansetron 4 MG/2 ML SDV IV PRN (16:52)
[2017-06-24] MEDS ORDERED: Acetaminophen 650 MG Supp RECTAL PRN (17:26)
[2017-06-24] MEDS ORDERED: HYDROmorphone 0.5 MG/0.5 ML Syringe IVPUSH PRN (17:27)
[2017-06-24] MEDS ORDERED: Bisacodyl 10 MG Supp RECTAL PRN (17:35)
[2017-06-24] MEDS ORDERED: hydrALAZINE 20 MG/ML SDV IVPUSH PRN ×2 (17:36→19:11)
[2017-06-24] MEDS ORDERED: Metoprolol Tartrate 5 MG/5 ML SDV IVPUSH PRN ×2 (17:37→19:11)
--- NOTE | 2017-06-24 17:58 | PCM.HP ---
H&P History of Present Illness - General Date of Service: 06/24/17 Admit Problem/Dx: Admission Diagnosis/Problem Admission Diagnosis/Problem Pancreatitis Source of Information: Patient, Family, Old Records, Provider, RN, RN Notes Reviewed History Limitations: Reports: Other (Alzheimer's dementia ) - History of Present Illness Initial Comments - Free Text/Narative: Yesika Henao is an 81-year-old female presented to ED with abdominal pain , nausea, and intermittent chest discomfort. Her daughters and are present. His history of Alzheimer's. Patient is complaining of symptoms for a week does have a history of constipation. She also has frequent UTIs. It is unknown what her last BM was. She saw her normal PCP in [place] yesterday and lab work today indicated an elevated white count and CRP. She was instructed to go the ED for evaluation treatment. In the ER she complained of abdominal pain across all quadrants and was unable to describe the type of pain. She was afebrile although she did have a temp of 99.1. She denied any chest pain, shortness of breath, nausea, or dysuria when she presented to the ED. She has a history of A. fib and is on Coumadin. She is also on metoprolol and Cardizem. She still has her gallbladder and appendix. In the ED pulse was 75, respirations 19, BP 118/90, pulse ox 96% on room air. An EKG was obtained revealing a sinus rhythm at a rate of [address] changes. Labs revealed white count of 23.56 hemoglobin 13.5, platelet count 267, neutrophil percentage is elevated at 89.4 with a left shift of 21.07. PTT 50.8. INR 4.5, which is supratherapeutic. Sodium 138, potassium mildly low at 3.2, AG 12.2, creatinine 1.5, glucose 141, lactic acid 3.0 just high, calcium 10.4, total bilirubin 0.6, alk phosphatase 129, troponin less than 0.017, CRP is quite elevated at 26.8. The patient is 135 and TSH 2.105. UA was negative. Abdominal x-ray obtained in the ER shows a normal bowel gas pattern, left hip prosthesis, and scoliosis within the spine. No free air is identified. Several air-fluid levels in the colon nursing which is felt to within normal limits. Chest x-ray obtained in the ED shows a moderately large hiatal hernia with heart size in the upper limits of normal. Minimal scarring seen within both lung bases, however they're otherwise clear. Bony structures are grossly intact. CT abdomen and pelvis interpreted by Dr. Heath revealed "1. Inflammatory change of the inferior head of the pancreas which is felt compatible with pancreatitis. 2. No findings of pancreatic abscess is seen at this time. 3. Other incidental findings." Patient will be admitted to medsurgery on telemetry. She is a full code. Her primary care provider is Marietta Yanes PA-C in [place]. Onset of Symptoms: Reports: Gradual Severity: Severe Associated Symptoms: Reports: Nausea/Vomiting Abdomen Pain Score (Numeric/FACES): 5 - Related Data Allergies/Adverse Reactions: Allergies Allergy/AdvReac Type Severity Reaction Status Date / Time donepezil [From Aricept] Allergy Stomach Verified 06/24/17 18:08 Upset influenza virus vaccine, Allergy Hives Verified 06/24/17 18:08 specific [Influenza Virus Vacc,Specific] Penicillins Allergy Hives Verified 06/24/17 18:08 streptomycin Allergy Hives Verified 06/24/17 18:08 tetracycline [Tetracycline] Allergy Hives Verified 06/24/17 18:08 Home Medications: Home Meds Amitriptyline HCl 100 mg PO BEDTIME 05/23/14 [History] Levothyroxine [Synthroid] 88 mcg PO DAILY 05/23/14 [History] Metoprolol Succinate 50 mg PO DAILY 05/23/14 [History] atorvaSTATin [Lipitor] 10 mg PO BEDTIME 05/23/14 [History] Diltiazem [Dilacor XR] 240 mg PO DAILY@0600 #30 cap.er 06/06/15 [Rx] Furosemide [Lasix] 20 mg PO BID 06/15/15 [History] Acetaminophen [Tylenol Extra Strength] 1,000 mg PO BID PRN 12/12/15 [History] LORazepam [Ativan] 0.5 mg PO Q8H PRN 12/12/15 [History] Warfarin [Coumadin] 2 mg PO DAILY 12/23/15 [History] Aspirin 81 mg PO DAILY 12/31/15 [History] Digoxin 0.625 mcg PO DAILY 06/24/17 [History] Iron Aspgly&PS/B12/C/Ca/FA/Suc [Niferex-150 Forte] 1 cap PO BID 06/24/17 [ History] L. Acidophilus/Lactobac Spor [Acidophilus X-Str Captab] 1 tab PO BID 06/24/17 [ History] Memantine HCl [Namenda] 10 mg PO BID 06/24/17 [History] Ondansetron HCl [Zofran] 4 mg PO Q8H PRN 06/24/17 [History] Pantoprazole [ProTONIX] 40 mg PO BID 06/24/17 [History] Polyethylene Glycol 3350 [MiraLAX] 17 gm PO DAILY 06/24/17 [History] Promethazine HCl 12.5 mg PO Q4H PRN 06/24/17 [History] Past Medical History - Past Health History Medical/Surgical History: Denies Medical/Surgical History HEENT History: Reports: Cataract, Impaired Vision Other HEENT History: reading Glasses Cardiovascular History: Reports: Afib, Heart Failure, High Cholesterol, Hypertension, SOB on Exertion Other Cardiovascular History: Afib Respiratory History: Reports: PE Other Respiratory History: Daughters report, "Last thursday pt came in with blood clot in L lung and bilateral legs." Pt was in the hospital for 4 days in Jun 2015. Genitourinary History: Reports: UTI, Recurrent Other Genitourinary History: graves disease [employer] DEVELOPER History: Reports: Other OB/BYN History: Hysterectomy Musculoskeletal History: Reports: Back Pain, Chronic Other Musculoskeletal History: degenrative joint disease Neurological History: Reports: Other (See Below) Psychiatric History: Reports: Anxiety, Dementia Endocrine/Metabolic History: Reports: Hypothyroidism - Infectious Disease History Infectious Disease History: Reports: Chicken Pox - Past Surgical History GI Surgical History: Reports: Hernia, Abdominal Endocrine Surgical History: Reports: None Musculoskeletal Surgical History: Reports: Hip Replacement Social & Family History - Family History Family Medical History: Noncontributory HEENT: Reports: None - Tobacco Use Smoking Status *Q: Never Smoker Second Hand Smoke Exposure: No - Caffeine Use Caffeine Use: Reports: Coffee - Alcohol Use Days Per Week of Alcohol Use: 0 Number of Drinks Per Day: 0 Total Drinks Per Week: 0 - Recreational Drug Use Recreational Drug Use: No - Living Situation & Occupation Living situation: Reports: Other Occupation: Retired H&P Review of Systems - Review of Systems: Review Of Systems: See Below General: Reports: Weakness. Denies: Fever, Chills, Night Sweats HEENT: Reports: No Symptoms Pulmonary: Denies: Shortness of Breath, Wheezing, Pleuritic Chest Pain, Cough, Sputum Cardiovascular: Denies: Chest Pain, Palpitations, Dyspnea on Exertion, Edema, Lightheadedness Gastrointestinal: Reports: Abdominal Pain, Flatus, Nausea. Denies: Black Stool , Constipation, Diarrhea, Distension, Vomiting Genitourinary: Denies: Dysuria, Burning, Pain Musculoskeletal: Reports: Shoulder Pain (left), Arm Pain (left). Denies: Neck Pain, Muscle Pain Skin: Reports: No Symptoms Psychiatric: Denies: Confusion, Anxiety, Hallucinations Neurological: Reports: Headache (given tylenol in ED ), Weakness. Denies: Confusion, Dizziness, Tingling, Trouble Speaking Hematologic/Lymphatic: Reports: No Symptoms Immunologic: Reports: No Symptoms Exam - Exam Exam: See Below - Vital Signs Vital Signs: Last Vital Signs Temp 99.1 F 06/24/17 10:49 Pulse 75 06/24/17 10:49 Resp 19 06/24/17 10:49 BP 118/90 06/24/17 10:49 Pulse Ox 96 06/24/17 10:49 Weight: 140 lb - Exam Quality Assessment: Urinary Catheter, DVT Prophylaxis (Pt. supratheraputic INR) General: Alert, Oriented, Cooperative HEENT: Conjunctiva Clear, EACs Clear, EOMI, Hearing Intact, Mucosa Moist & [place] , Nares Patent, Normal Nasal Septum, Posterior Pharynx Clear, Pupils Reactive, TMs Clear (bilateral cerumen ) Neck: Supple, Trachea Midline. No: JVD Lungs: Clear to Auscultation, Normal Respiratory Effort Cardiovascular: Regular Rate, Regular Rhythm, Systolic Murmur GI/Abdominal Exam: Normal Bowel Sounds, Soft, No Distention, No Mass, Tender ( Upper quadrants ) (Female) Exam: Deferred Rectal (Female) Exam: Deferred Back Exam: Normal Inspection Extremities: Normal Inspection, Normal Range of Motion, Non-Tender, Normal Capillary Refill, Pedal Edema (3+) Peripheral Pulses: 2+: Radial (L), Radial (R), Posterior Tibial (L), Posterior Tibial (R), Dorsalis Pedis (L), Dorsalis Pedis (R) Skin: Warm, Dry, Intact Neurological: Cranial Nerves Intact, Strength Equal Bilateral, Normal Speech Neuro Extensive - Mental Status: Alert, Oriented x3, Normal Mood/Affect Neuro Extensive - Motor, Sensory, Reflexes: CN II-XII Intact (grossly ) Psychiatric: Alert, Normal Affect, Normal Mood - Patient Data Result Diagrams: 06/24/17 10:55 06/24/17 10:55 *Q Meaningful Use (ADM) - VTE *Q VTE Criteria *Q: - Stroke *Q Stroke Criteria *Q: - AMI *Q AMI Criteria *Q: - Problem List (1) Hypokalemia SNOMED Code(s): 24294104 ICD Code: E87.6 - HYPOKALEMIA Status: Acute Priority: High Current Visit: Yes (2) Pancreatitis SNOMED Code(s): 26905303 ICD Code: K85.90 - ACUTE PANCREATITIS WITHOUT NECROSIS OR INFECTION, UNSP Status: Acute Priority: High Current Visit: Yes Qualifiers: Chronicity: acute Pancreatitis type: unspecified pancreatitis type Acute pancreatitis complication: unspecified Qualified Code(s): K85.90 - Acute pancreatitis without necrosis or infection, unspecified (3) Subtherapeutic international normalized ratio (INR) SNOMED Code(s): 314920826 ICD Code: R79.1 - ABNORMAL COAGULATION PROFILE Status: Acute Priority: High Current Visit: Yes Problem List Initiated/Reviewed/Updated: Yes Orders Last 24hrs: Active Orders 24 hr Category Date Time Status Patient Status [ADT] Routine ADT 06/24/17 16:52 Active Ambulate [RC] PER UNIT ROUTINE Care 06/24/17 16:58 Active Antiembolic Devices [RC] PER UNIT ROUTINE Care 06/24/17 17:05 Active Cardiac Monitoring [RC] CONTINUOUS Care 06/24/17 16:58 Active Height and Weight [RC] DAILY Care 06/24/17 16:52 Active Intake and Output [RC] QSHIFT Care 06/24/17 16:57 Active Oxygen Therapy [RC] PRN Care 06/24/17 16:52 Active Oxygen Therapy [RC] PRN Care 06/24/17 17:27 Inactive Pulse Oximetry [RC] PRN Care 06/24/17 16:58 Active RT Aerosol Therapy [RC] ASDIRECTED Care 06/24/17 17:05 Active Up With Assistance [RC] ASDIRECTED Care 06/24/17 16:52 Active VTE/DVT Education [RC] PER UNIT ROUTINE Care 06/24/17 17:27 Active Vaccines to be Administered [RC] PER UNIT ROUTINE Care 06/24/17 17:17 Active Vital Signs [RC] Q4HR Care 06/24/17 16:52 Active Consult to Case Management [CONS] Routine Cons 06/24/17 16:52 Active Consult to Solar Development Engineer [CONS] Routine Cons 06/24/17 16:52 Active OT Evaluation and Treatment [CONS] Routine Cons 06/24/17 16:52 Active PT Evaluation and Treatment [CONS] Routine Cons 06/24/17 16:52 Active Nothing per Oral Now Diet [DIET] Diet 06/24/17 Dinner Active BASIC METABOLIC PANEL,BMP [CHEM] AM Lab 06/25/17 05:11 Ordered BASIC METABOLIC PANEL,BMP [CHEM] AM Lab 06/26/17 05:11 Ordered BASIC METABOLIC PANEL,BMP [CHEM] AM Lab 06/27/17 05:11 Ordered BASIC METABOLIC PANEL,BMP [CHEM] AM Lab 06/28/17 05:11 Ordered C-REACTIVE PROTEIN [CHEM] AM Lab 06/25/17 05:11 Ordered C-REACTIVE PROTEIN [CHEM] AM Lab 06/26/17 05:11 Ordered C-REACTIVE PROTEIN [CHEM] AM Lab 06/27/17 05:11 Ordered C-REACTIVE PROTEIN [CHEM] AM Lab 06/28/17 05:11 Ordered CBC WITH AUTO DIFF [HEME] AM Lab 06/25/17 05:11 Ordered CBC WITH AUTO DIFF [HEME] AM Lab 06/26/17 05:11 Ordered CBC WITH AUTO DIFF [HEME] AM Lab 06/27/17 05:11 Ordered CBC WITH AUTO DIFF [HEME] AM Lab 06/28/17 05:11 Ordered INR,PT,PROTHROMBIN TIME [COAG] AM Lab 06/25/17 05:11 Ordered INR,PT,PROTHROMBIN TIME [COAG] AM Lab 06/26/17 05:11 Ordered INR,PT,PROTHROMBIN TIME [COAG] AM Lab 06/27/17 05:11 Ordered INR,PT,PROTHROMBIN TIME [COAG] AM Lab 06/28/17 05:11 Ordered LACTIC ACID [CHEM] Routine Lab 06/24/17 18:00 Ordered MAGNESIUM [CHEM] AM Lab 06/25/17 05:11 Ordered MAGNESIUM [CHEM] AM Lab 06/26/17 05:11 Ordered MAGNESIUM [CHEM] AM Lab 06/27/17 05:11 Ordered MAGNESIUM [CHEM] AM Lab 06/28/17 05:11 Ordered Acetaminophen [Tylenol] Med 06/24/17 17:26 Ordered 650 mg RECTAL Q6H PRN Albuterol/Ipratropium [DuoNeb 3.0-0.5 MG/3 ML] Med 06/24/17 16:52 Ordered 3 ml NEB Q4H PRN Amitriptyline [Elavil] Med 06/24/17 21:00 Ordered 100 mg PO BEDTIME Bisacodyl [Dulcolax] Med 06/24/17 17:35 Ordered 10 mg RECTAL DAILY PRN Digoxin [Lanoxin] Med 06/25/17 09:00 Ordered 0.625 mcg PO DAILY Diltiazem [Dilacor XR] Med 06/25/17 06:00 Ordered 240 mg PO DAILY@0600 Furosemide [Lasix] Med 06/25/17 09:00 Ordered 20 mg IVPUSH DAILY HYDROmorphone [Dilaudid] Med 06/24/17 17:27 Ordered 0.25 mg IVPUSH Q2H PRN L. Acidophilus/Lactobac Spor [Acidophilus X-Str Captab] Med 06/24/17 21:00 Ordered 1 tab PO BID Levothyroxine [Synthroid] Med 06/25/17 09:00 Ordered 88 mcg PO DAILY Magnesium Rep Pharmacy to Dose [Pharmacy to Dose - Med 06/24/17 17:30 Ordered Magnesium Replacement] 1 dose .XX ASDIRECTED Memantine [Namenda] Med 06/24/17 21:00 Ordered 10 mg PO BID Metoprolol Succinate [Toprol XL] Med 06/25/17 09:00 Ordered 50 mg PO DAILY Metoprolol Tartrate [Lopressor] Med 06/24/17 17:37 Ordered 5 mg IVPUSH Q4H PRN Ondansetron [Zofran] Med 06/24/17 16:52 Ordered 4 mg IV Q6H PRN Pantoprazole [ProTONIX IV] Med 06/24/17 17:45 Ordered 40 mg IVPUSH DAILY Potassium Rep Pharmacy to Dose [Pharmacy to Dose - Med 06/24/17 17:30 Ordered Potassium Replacement] 1 dose .XX ASDIRECTED hydrALAZINE [Apresoline] Med 06/24/17 17:36 Ordered 20 mg IVPUSH Q4H PRN Antiembolic Hose [OM.PC] Per Unit Routine Oth 06/24/17 16:58 Ordered GM Immunization Reflex [OM.PC] Click To Edit Oth 06/24/17 16:52 Ordered Resuscitation Status Routine Resus Stat 06/24/17 16:52 Ordered Medication Orders Acetaminophen (Tylenol) 650 mg RECTAL Q6H PRN PRN Reason: Pain (mild 1-3) Albuterol/Ipratropium (Duoneb 3.0-0.5 Mg/3 Ml) 3 ml NEB Q4H PRN PRN Reason: Shortness Of Breath/wheezing Amitriptyline HCl (Elavil) 100 mg PO BEDTIME [facility] Bisacodyl (Dulcolax) 10 mg RECTAL DAILY PRN PRN Reason: Constipation Digoxin (Lanoxin) 0.625 mcg PO DAILY [facility] Diltiazem HCl (Dilacor Xr) 240 mg PO DAILY@0600 [facility] Furosemide (Lasix) 20 mg IVPUSH DAILY [facility] Hydralazine HCl (Apresoline) 20 mg IVPUSH Q4H PRN PRN Reason: Hypertension Hydromorphone HCl (Dilaudid) 0.25 mg IVPUSH Q2H PRN PRN Reason: Pain (severe 7-10) Sodium Chloride (Normal Saline) 1,000 mls @ 150 mls/hr IV ASDIRECTED [facility] Sodium Chloride (Normal Saline) 100 mls @ 65 mls/hr IV ASDIRECTED [facility] Last Admin: 06/24/17 13:50 Dose: 65 mls/hr Levothyroxine Sodium (Synthroid) 88 mcg PO DAILY [facility] Magnesium Sulfate (Pharmacy To Dose - Magnesium Replacement) 1 dose .XX ASDIRECTED [facility] Memantine (Namenda) 10 mg PO BID [facility] Metoprolol Succinate (Toprol Xl) 50 mg PO DAILY [facility] Metoprolol Tartrate (Lopressor) 5 mg IVPUSH Q4H PRN PRN Reason: Tachycardia Non-Formulary Medication (L. Acidophilus/Lactobac Spor [Acidophilus X-Str Captab ]) 1 tab PO BID [facility] Ondansetron HCl (Zofran) 4 mg IV Q6H PRN PRN Reason: Nausea/Vomiting Pantoprazole Sodium (Protonix Iv) 40 mg IVPUSH DAILY [facility] Potassium Chloride (Pharmacy To Dose - Potassium Replacement) 1 dose .XX ASDIRECTED [facility] Sodium Chloride (Saline Flush) 10 ml FLUSH ASDIRECTED PRN PRN Reason: Keep Vein Open Last Admin: 06/24/17 11:40 Dose: 10 ml Sodium Chloride (Saline Flush) 10 ml FLUSH ONETIME PRN PRN Reason: IV FLUSH Last Admin: 06/24/17 13:50 Dose: 10 ml Assessment/Plan Comment:: I/P: Acute: Pancreatitis -Upper quadrant abdominal pain radiating to left arm -Intermittent nausea -Afebrile -WBC 23.56 -CRP 26.8 -AST 24 -ALT 24 -Alk Phos 129 -Lactic acid 3.0 -Lipase 135 -UA negative -NPO with meds for now -IV Fluids -Start Levofloxican Supratheraputic INR -INR 4.25 in ER - Will hold next dose of warfarin and monitor Hypokalemia -3.2 in ED - Pharmacy to dose - will replete and continue to monitor Chronic: Alzheimer's dementia A. fib Heart failure hyperglycemia Hypertension H/O PE Recurrent UTIs Graves' disease chronic back pain Plan: Admit to M/S/P with telemetry SW/CM for discharge planning GI prophylaxis Pt. has supratheraputic INR so will only utilize [facility]I Hose for now. PT/OT Routine labs Other orders as indicated above She is a full code
[2017-06-24] MEDS ORDERED: Levofloxacin/Dextrose 5%-Water 750 MG in Premix Bag 1 BAG IV SCH (18:30)
[2017-06-24] MEDS: Sodium Chloride 0.9% 1,000 ML IV SCH (18:39)
[2017-06-24] MEDS: Pantoprazole 40 MG Vial IVPUSH SCH (18:41)
[2017-06-24] MEDS: Amitriptyline 25 MG Tab PO SCH (20:08)
[2017-06-24] MEDS: Potassium Chloride 20 MEQ Tab.ER PO SCH (20:08)
[2017-06-24] MEDS: Memantine 10 MG Tab PO SCH (20:08)
[2017-06-24] MEDS ORDERED: [UNRECOGNIZED DRUG - OTHER] PO SCH (21:00)
[2017-06-24] MEDS ORDERED: ACIDOPHILUS PO SCH (21:00)
[2017-06-25] MEDS: Potassium Chloride 20 MEQ Tab.ER PO SCH (00:57)
[2017-06-25] MEDS: Sodium Chloride 0.9% 1,000 ML IV SCH ×3 (02:06→15:56)
[2017-06-25] MEDS: Levothyroxine 88 MCG Tab PO SCH (06:42)
[2017-06-25] MEDS: Diltiazem 240 MG Cap.ER PO SCH (06:42)
--- NOTE | 2017-06-25 07:27 | PCM.PN ---
- General Info Date of Service: 06/25/17 Admission Dx/Problem (Free Text): Admission Diagnosis/Problem Admission Diagnosis/Problem Pancreatitis Functional Status: Reports: Pain Controlled, Tolerating Diet, Ambulating, Urinating. Denies: New Symptoms - Review of Systems General: Reports: No Symptoms HEENT: Reports: No Symptoms Pulmonary: Reports: No Symptoms Cardiovascular: Reports: No Symptoms Gastrointestinal: Reports: Abdominal Pain (Mild pain (2/10) that is much better than yesterday in upper quadrants. ), Flatus. Denies: Constipation, Diarrhea, Nausea, Vomiting Genitourinary: Reports: No Symptoms Musculoskeletal: Reports: No Symptoms Skin: Reports: No Symptoms Neurological: Reports: Confusion (baseline ). Denies: Dizziness, Headache, Numbness, Trouble Speaking, Difficulty Walking, Weakness, Gait Disturbance Psychiatric: Reports: Confusion (Baseline dimentia ). Denies: Depression, Mood Lability, Anxiety, Agitation Systems Review Comment:: Patient reports she is feeling much better. She does have some baseline confusion, although she responds appropriately to questions. - Patient Data Vitals - Most Recent: Last Vital Signs Temp 99.3 F 06/25/17 02:47 Pulse 77 06/25/17 02:47 Resp 16 06/25/17 02:47 BP 124/87 06/25/17 02:50 Pulse Ox 92 L 06/25/17 02:47 Weight - Most Recent: 181 lb 1.6 oz I&O - Last 24 Hours: Intake & Output 06/24/17 06/25/17 06/25/17 22:59 06:59 14:59 Intake Total 1852 Balance 1852 Lab Results Last 24 Hours: Laboratory Results - last 24 hr 06/24/17 06/24/17 06/25/17 Range/Units 18:26 18:40 06:00 WBC 20.26 H (3.98-10.04) K/mm3 RBC 3.94 L (3.98-5.22) M/mm3 Hgb 12.0 (11.2-15.7) gm/L Hct 37.0 (34.1-44.9) % MCV 93.9 (79.4-94.8) fl MCH 30.5 (25.6-32.2) pg MCHC 32.4 (32.2-35.5) g/dl RDW Std Deviation 47.2 H (36.4-46.3) fL Plt Count 226 (182-369) K/mm3 MPV 11.6 (9.4-12.3) fl Neut % (Auto) 90.3 H (34.0-71.1) % Lymph % (Auto) 3.7 L (19.3-51.7) % [place] % (Auto) 5.8 (4.7-12.5) % Eos % (Auto) 0 L (0.7-5.8) Baso % (Auto) 0.0 L (0.1-1.2) % Neut # (Auto) 18.29 H (1.56-6.13) K/mm3 Lymph # (Auto) 0.75 L (1.18-3.74) K/mm3 [place] # (Auto) 1.17 H (0.24-0.36) K/mm3 Eos # (Auto) 0.00 L (0.04-0.36) K/mm3 Baso # (Auto) 0.01 (0.01-0.08) K/mm3 PT (8.0-13.0) SECONDS INR Sodium (136-145) mEq/L Potassium (3.5-5.1) mEq/L Chloride (98-107) mEq/L Carbon Dioxide (21-32) mEq/L Anion Gap (5-15) BUN (7-18) mg/dL Creatinine (0.55-1.02) mg/dL Est Cr Clr Drug Dosing mL/min Estimated GFR (MDRD) (>60) mL/min BUN/Creatinine Ratio (14-18) Glucose (83-115) mg/dL Lactic Acid 1.0 (0.4-2.0) mmol/L Calcium (8.5-10.1) mg/dL Magnesium (1.8-2.4) mg/dl Total Bilirubin (0.2-1.0) mg/dL AST (15-37) U/L ALT (14-59) U/L Alkaline Phosphatase (46-116) U/L C-Reactive Protein (<1.0) mg/dL Total Protein (6.4-8.2) g/dl Albumin (3.4-5.0) g/dl Globulin gm/dL Albumin/Globulin Ratio (1-2) MRSA (PCR) Negative 06/25/17 06/25/17 Range/Units 06:00 06:00 WBC (3.98-10.04) K/mm3 RBC (3.98-5.22) M/mm3 Hgb (11.2-15.7) gm/L Hct (34.1-44.9) % MCV (79.4-94.8) fl MCH (25.6-32.2) pg MCHC (32.2-35.5) g/dl RDW Std Deviation (36.4-46.3) fL Plt Count (182-369) K/mm3 MPV (9.4-12.3) fl Neut % (Auto) (34.0-71.1) % Lymph % (Auto) (19.3-51.7) % [place] % (Auto) (4.7-12.5) % Eos % (Auto) (0.7-5.8) Baso % (Auto) (0.1-1.2) % Neut # (Auto) (1.56-6.13) K/mm3 Lymph # (Auto) (1.18-3.74) K/mm3 [place] # (Auto) (0.24-0.36) K/mm3 Eos # (Auto) (0.04-0.36) K/mm3 Baso # (Auto) (0.01-0.08) K/mm3 PT 55.5 H* (8.0-13.0) SECONDS INR 4.62 Sodium 137 (136-145) mEq/L Potassium 3.5 (3.5-5.1) mEq/L Chloride 104 (98-107) mEq/L Carbon Dioxide 24 (21-32) mEq/L Anion Gap 12.5 (5-15) BUN 13 (7-18) mg/dL Creatinine 1.0 (0.55-1.02) mg/dL Est Cr Clr Drug Dosing 36.50 mL/min Estimated GFR (MDRD) 53 (>60) mL/min BUN/Creatinine Ratio 13.0 L (14-18) Glucose 106 (83-115) mg/dL Lactic Acid (0.4-2.0) mmol/L Calcium 8.6 (8.5-10.1) mg/dL Magnesium 1.8 (1.8-2.4) mg/dl Total Bilirubin 0.5 (0.2-1.0) mg/dL AST 24 (15-37) U/L ALT 28 (14-59) U/L Alkaline Phosphatase 118 H (46-116) U/L C-Reactive Protein 27.0 H* (<1.0) mg/dL Total Protein 6.6 (6.4-8.2) g/dl Albumin 2.5 L (3.4-5.0) g/dl Globulin 4.1 gm/dL Albumin/Globulin Ratio 0.6 L (1-2) MRSA (PCR) Med Orders - Current: Current Medications Acetaminophen (Tylenol) 650 mg RECTAL Q6H PRN PRN Reason: Pain (mild 1-3) Acetaminophen (Tylenol) 975 mg PO DAILY [facility] Albuterol/Ipratropium (Duoneb 3.0-0.5 Mg/3 Ml) 3 ml NEB Q4H PRN PRN Reason: Shortness Of Breath/wheezing Amitriptyline HCl (Elavil) 100 mg PO BEDTIME [facility] Last Admin: 06/24/17 20:08 Dose: 100 mg Bisacodyl (Dulcolax) 10 mg RECTAL DAILY PRN PRN Reason: Constipation Digoxin (Lanoxin) 62.5 mcg PO DAILY [facility] Diltiazem HCl (Dilacor Xr) 240 mg PO DAILY@0600 [facility] Last Admin: 06/25/17 06:42 Dose: 240 mg Furosemide (Lasix) 20 mg IVPUSH DAILY [facility] Hydralazine HCl (Apresoline) 20 mg IVPUSH Q4H PRN PRN Reason: Hypertension Sodium Chloride (Normal Saline) 1,000 mls @ 150 mls/hr IV ASDIRECTED [facility] Last Admin: 06/25/17 02:06 Dose: 150 mls/hr Levofloxacin/Dextrose 750 mg/ (Premix) 150 mls @ 100 mls/hr IV Q24H [facility] Last Admin: 06/24/17 20:07 Dose: 100 mls/hr Levothyroxine Sodium (Synthroid) 88 mcg PO ACBREAKFAST [facility] Last Admin: 06/25/17 06:42 Dose: 88 mcg Magnesium Sulfate (Pharmacy To Dose - Magnesium Replacement) 1 dose .XX ASDIRECTED [facility] Memantine (Namenda) 10 mg PO BID [facility] Last Admin: 06/24/17 20:08 Dose: 10 mg Metoprolol Succinate (Toprol Xl) 50 mg PO DAILY [facility] Metoprolol Tartrate (Lopressor) 5 mg IVPUSH Q4H PRN PRN Reason: Tachycardia Ondansetron HCl (Zofran) 4 mg IV Q6H PRN PRN Reason: Nausea/Vomiting Pantoprazole Sodium (Protonix Iv) 40 mg IVPUSH DAILY [facility] Last Admin: 06/24/17 18:41 Dose: 40 mg Potassium Chloride (Pharmacy To Dose - Potassium Replacement) 1 dose .XX ASDIRECTED [facility] Sodium Chloride (Saline Flush) 10 ml FLUSH ASDIRECTED PRN PRN Reason: Keep Vein Open Last Admin: 06/24/17 11:40 Dose: 10 ml Sodium Chloride (Saline Flush) 10 ml FLUSH ONETIME PRN PRN Reason: IV FLUSH Last Admin: 06/24/17 13:50 Dose: 10 ml Discontinued Medications Acetaminophen (Tylenol) 650 mg RECTAL NOW ONE Stop: 06/24/17 15:41 Last Admin: 06/24/17 15:49 Dose: 650 mg Diatrizoate Meglum/Diatrizoate Sod (Gastrografin 37%) 90 ml PO ONETIME ONE Stop: 06/24/17 13:51 Last Admin: 06/24/17 13:51 Dose: 90 ml Hydralazine HCl (Apresoline) 20 mg IVPUSH Q4H PRN PRN Reason: Hypertension Hydromorphone HCl (Dilaudid) 0.25 mg IVPUSH Q2H PRN PRN Reason: Pain (severe 7-10) Sodium Chloride (Normal Saline) 500 mls @ 999 mls/hr IV .BOLUS ONE Stop: 06/24/17 11:51 Last Admin: 06/24/17 11:45 Dose: 999 mls/hr Sodium Chloride (Normal Saline) 100 mls @ 65 mls/hr IV ASDIRECTED [facility] Last Admin: 06/24/17 13:50 Dose: 65 mls/hr Iopamidol (Isovue-300 (61%)) 100 ml IVPUSH ONETIME ONE Stop: 06/24/17 12:45 Last Admin: 06/24/17 13:50 Dose: 100 ml Levothyroxine Sodium (Synthroid) 88 mcg PO DAILY [facility] Metoprolol Tartrate (Lopressor) 5 mg IVPUSH Q4H PRN PRN Reason: Tachycardia Non-Formulary Medication (L. Acidophilus/Lactobac Spor [Acidophilus X-Str Captab ]) 1 tab PO BID [facility] Potassium Chloride (Klor-Con M20) 20 meq PO Q3HR [facility] Stop: 06/25/17 00:01 Last Admin: 06/25/17 00:57 Dose: 20 meq - Exam Quality Assessment: DVT Prophylaxis (CITLALLI hose, Supratheraputic INR ) General: Alert, Cooperative, Other (mild baseline confusion ) HEENT: Pupils Equal, Pupils Reactive, Mucous Membr. Moist/[place] Neck: Supple, Trachea Midline, No JVD Lungs: Clear to Auscultation, Normal Respiratory Effort GI/Abdominal Exam: Normal Bowel Sounds, Soft, No Distention, No Mass, Tender ( Upper quadrant tenderness with palpation) (Female) Exam: Deferred Back Exam: Normal Inspection, Decreased Range of Motion Extremities: Normal Inspection, Normal Capillary Refill, Pedal Edema, Limited Range of Motion Peripheral Pulses: 2+: Radial (L), Radial (R), Posterior Tibial (L), Posterior Tibial (R), Dorsalis Pedis (L), Dorsalis Pedis (R) Skin: Warm, Dry, Intact Neurological: No New Focal Deficit, Sensation Intact Psy/Mental Status: Alert, Normal Affect, Normal Mood, Other (Mild baseline confusion.) Physical Findings Comments:: Overall patient is doing very well. She reports pain is resolving. She was nothing by mouth overnight. Labs are improving slightly. Repeat lactic acid was 1. will advance to clear liquid diet and continue to monitor patient. - Problem List & Annotations (1) Hypokalemia SNOMED Code(s): 63801294 Code(s): E87.6 - HYPOKALEMIA Status: Resolved Priority: High Current Visit: Yes (2) Pancreatitis SNOMED Code(s): 65088047 Code(s): K85.90 - ACUTE PANCREATITIS WITHOUT NECROSIS OR INFECTION, UNSP Status: Acute Priority: High Current Visit: Yes Qualifiers: Chronicity: acute Pancreatitis type: idiopathic Acute pancreatitis complication: uninfected necrosis Qualified Code(s): K85.01 - Idiopathic acute pancreatitis with uninfected necrosis (3) Subtherapeutic international normalized ratio (INR) SNOMED Code(s): 128483537 Code(s): R79.1 - ABNORMAL COAGULATION PROFILE Status: Acute Priority: High Current Visit: Yes - Problem List Review Problem List Initiated/Reviewed/Updated: Yes - My Orders Last 24 Hours: My Active Orders 06/24/17 16:52 Patient Status [ADT] Routine Height and Weight [RC] DAILY Oxygen Therapy [RC] PRN Up With Assistance [RC] ASDIRECTED Vital Signs [RC] Q4HR Consult to Case Management [CONS] Routine Consult to Mechanical Service Technician [CONS] Routine OT Evaluation and Treatment [CONS] Routine PT Evaluation and Treatment [CONS] Routine Albuterol/Ipratropium [DuoNeb 3.0-0.5 MG/3 ML] 3 ml NEB Q4H PRN Ondansetron [Zofran] 4 mg IV Q6H PRN GM Immunization Reflex [OM.PC] Click To Edit Resuscitation Status Routine 06/24/17 16:57 Intake and Output [RC] 04,16 06/24/17 16:58 Ambulate [RC] PER UNIT ROUTINE Cardiac Monitoring [RC] CONTINUOUS Pulse Oximetry [RC] PRN Antiembolic Hose [OM.PC] Per Unit Routine 06/24/17 17:05 Antiembolic Devices [RC] PER UNIT ROUTINE RT Aerosol Therapy [RC] .PRN 06/24/17 17:17 Vaccines to be Administered [RC] PER UNIT ROUTINE 06/24/17 17:26 Acetaminophen [Tylenol] 650 mg RECTAL Q6H PRN 06/24/17 17:27 Oxygen Therapy [RC] PRN VTE/DVT Education [RC] PER UNIT ROUTINE 06/24/17 17:30 Magnesium Rep Pharmacy to Dose [Pharmacy to Dose - Magnesium Replacement] 1 dose .XX ASDIRECTED Potassium Rep Pharmacy to Dose [Pharmacy to Dose - Potassium Replacement] 1 dose .XX ASDIRECTED 06/24/17 17:35 Bisacodyl [Dulcolax] 10 mg RECTAL DAILY PRN 06/24/17 17:36 hydrALAZINE [Apresoline] 20 mg IVPUSH Q4H PRN 06/24/17 17:37 Metoprolol Tartrate [Lopressor] 5 mg IVPUSH Q4H PRN 06/24/17 17:45 Pantoprazole [ProTONIX IV] 40 mg IVPUSH DAILY 06/24/17 18:30 Levofloxacin/Dextrose 5%-Water [Levaquin in D5W 750 MG/150 ML] 750 mg Premix Bag 1 bag IV Q24H 06/24/17 21:00 Amitriptyline [Elavil] 100 mg PO BEDTIME Memantine [Namenda] 10 mg PO BID 06/24/17 Dinner Nothing per Oral Now Diet [DIET] 06/25/17 06:00 CBC WITH AUTO DIFF [HEME] AM Diltiazem [Dilacor XR] 240 mg PO DAILY@0600 Levothyroxine [Synthroid] 88 mcg PO ACBREAKFAST 06/25/17 09:00 Digoxin [Lanoxin] 62.5 mcg PO DAILY Furosemide [Lasix] 20 mg IVPUSH DAILY Metoprolol Succinate [Toprol XL] 50 mg PO DAILY 06/26/17 05:11 C-REACTIVE PROTEIN [CHEM] AM CBC WITH AUTO DIFF [HEME] AM CMP [COMPREHENSIVE METABOLIC PN,CMP] [CHEM] AM INR,PT,PROTHROMBIN TIME [COAG] AM MAGNESIUM [CHEM] AM 06/27/17 05:11 C-REACTIVE PROTEIN [CHEM] AM CBC WITH AUTO DIFF [HEME] AM CMP [COMPREHENSIVE METABOLIC PN,CMP] [CHEM] AM INR,PT,PROTHROMBIN TIME [COAG] AM MAGNESIUM [CHEM] AM 06/28/17 05:11 C-REACTIVE PROTEIN [CHEM] AM CBC WITH AUTO DIFF [HEME] AM CMP [COMPREHENSIVE METABOLIC PN,CMP] [CHEM] AM INR,PT,PROTHROMBIN TIME [COAG] AM MAGNESIUM [CHEM] AM - Plan Plan:: I/P: Acute: Pancreatitis -Upper quadrant abdominal pain radiating to left arm - improving -Intermittent nausea - resolved -Afebrile -WBC 23.56 --->20.26 -CRP 26.8 --->27.0 -AST 24 -ALT 24 -Alk Phos 129 -Lactic acid 3.0--->1 -Lipase 135 - Ordered repeat today -Lipid panel negative -UA negative -NPO with meds---> advance to clear liquids -IV Fluids -Start Levofloxican Supratheraputic INR - INR 4.25 in ER ---> Now 4.62 - Will continue to hold warfarin and monitor Hypokalemia - Resolved - 3.2 in ED---> 3.5 now - Pharmacy to dose - will replete and continue to monitor Chronic: Alzheimer's dementia A. fib Heart failure hyperglycemia Hypertension H/O PE Recurrent UTIs Graves' disease chronic back pain Plan: Admit to M/S/P with telemetry SW/CM for discharge planning GI prophylaxis Pt. has supratheraputic INR so will only utilize CITLALLI Hose for now. PT/OT Routine labs Other orders as indicated above She is a full code
[2017-06-25] MEDS ORDERED: Levothyroxine 88 MCG Tab PO SCH (09:00)
[2017-06-25] MEDS ORDERED: Furosemide 20 MG/2 ML VIAL IVPUSH SCH (09:00)
[2017-06-25] MEDS: Digoxin 125 MCG Tab PO SCH (09:11)
[2017-06-25] MEDS: Metoprolol Succinate 50 MG Tab.ER PO SCH (09:14)
[2017-06-25] MEDS: Memantine 10 MG Tab PO SCH ×2 (09:15→20:38)
[2017-06-25] MEDS: Acetaminophen 325 MG Tab PO SCH (09:15)
[2017-06-25] MEDS: Pantoprazole 40 MG Vial IVPUSH SCH (09:17)
[2017-06-25] MEDS ORDERED: Modafinil 200 MG Tab PO SCH (10:15)
[2017-06-25] MEDS ORDERED: Diphtheria,Pertussis(Acell),Tetanus Vaccine 0.5 ML SDV IM ONE (11:21)
[2017-06-25] MEDS ORDERED: Pneumococcal 13-Valent Conjugate Vaccine 0.5 ML Syringe IM ONE (11:22)
[2017-06-25] MEDS: Amitriptyline 25 MG Tab PO SCH (20:38)
[2017-06-25] MEDS ORDERED: Sodium Chloride 0.9% 1,000 ML IV SCH (22:30)
[2017-06-25] MEDS: Acetaminophen 325 MG Tab PO PRN (22:47)
[2017-06-26] MEDS: Diltiazem 240 MG Cap.ER PO SCH (06:16)
[2017-06-26] MEDS: Levothyroxine 88 MCG Tab PO SCH (06:16)
[2017-06-26] MEDS ORDERED: Bumetanide 1 MG/4 ML MDV IVPUSH ONE (08:48)
--- NOTE | 2017-06-26 08:58 | PCM.PN ---
- General Info Date of Service: 06/26/17 Admission Dx/Problem (Free Text): Admission Diagnosis/Problem Admission Diagnosis/Problem Pancreatitis Yesika is seen this morning, resting comfortably in chair. Slept well last night. Denies c/o pain, no abd pain, n/v/d. Doing well overall. Labs are improving slowly, VSS. Functional Status: Reports: Pain Controlled, Tolerating Diet (nate clear liquids ; adv to full liq for breakfast), Ambulating, Urinating. Denies: New Symptoms - Review of Systems General: Denies: Fever Pulmonary: Reports: No Symptoms. Denies: Shortness of Breath, Cough Cardiovascular: Reports: No Symptoms. Denies: Chest Pain, Dyspnea on Exertion Gastrointestinal: Denies: Abdominal Pain, Diarrhea, Nausea, Vomiting Genitourinary: Reports: No Symptoms Neurological: Reports: No Symptoms - Patient Data Vitals - Most Recent: Last Vital Signs Temp 98.2 F 06/26/17 04:01 Pulse 92 06/26/17 06:18 Resp 16 06/26/17 04:01 BP 128/87 06/26/17 04:01 Pulse Ox 93 L 06/26/17 06:18 Weight - Most Recent: 189 lb 8 oz I&O - Last 24 Hours: Intake & Output 06/25/17 06/26/17 06/26/17 22:59 06:59 14:59 Intake Total 2908 1028 Output Total 500 600 Balance 2408 428 Lab Results Last 24 Hours: Laboratory Results - last 24 hr 06/25/17 06/26/17 06/26/17 Range/Units 06:00 06:05 06:05 WBC 13.86 H (3.98-10.04) K/mm3 RBC 3.78 L (3.98-5.22) M/mm3 Hgb 12.0 (11.2-15.7) gm/L Hct 35.5 (34.1-44.9) % MCV 93.9 (79.4-94.8) fl MCH 31.7 (25.6-32.2) pg MCHC 33.8 (32.2-35.5) g/dl RDW Std Deviation 47.2 H (36.4-46.3) fL Plt Count 230 (182-369) K/mm3 MPV 11.3 (9.4-12.3) fl Neut % (Auto) 85.7 H (34.0-71.1) % Lymph % (Auto) 6.3 L (19.3-51.7) % [place] % (Auto) 6.4 (4.7-12.5) % Eos % (Auto) 1.5 (0.7-5.8) Baso % (Auto) 0.1 (0.1-1.2) % Neut # (Auto) 11.86 H (1.56-6.13) K/mm3 Lymph # (Auto) 0.88 L (1.18-3.74) K/mm3 [place] # (Auto) 0.89 H (0.24-0.36) K/mm3 Eos # (Auto) 0.21 (0.04-0.36) K/mm3 Baso # (Auto) 0.02 (0.01-0.08) K/mm3 Manual Slide Review Abnormal smear PT 59.1 H* (8.0-13.0) SECONDS INR 4.90 Sodium (136-145) mEq/L Potassium (3.5-5.1) mEq/L Chloride (98-107) mEq/L Carbon Dioxide (21-32) mEq/L Anion Gap (5-15) BUN (7-18) mg/dL Creatinine (0.55-1.02) mg/dL Est Cr Clr Drug Dosing mL/min Estimated GFR (MDRD) (>60) mL/min BUN/Creatinine Ratio (14-18) Glucose (83-115) mg/dL Calcium (8.5-10.1) mg/dL Magnesium (1.8-2.4) mg/dl Total Bilirubin (0.2-1.0) mg/dL AST (15-37) U/L ALT (14-59) U/L Alkaline Phosphatase (46-116) U/L C-Reactive Protein (<1.0) mg/dL Total Protein (6.4-8.2) g/dl Albumin (3.4-5.0) g/dl Globulin gm/dL Albumin/Globulin Ratio (1-2) Lipase 80 (73-393) U/L 06/26/17 Range/Units 06:05 WBC (3.98-10.04) K/mm3 RBC (3.98-5.22) M/mm3 Hgb (11.2-15.7) gm/L Hct (34.1-44.9) % MCV (79.4-94.8) fl MCH (25.6-32.2) pg MCHC (32.2-35.5) g/dl RDW Std Deviation (36.4-46.3) fL Plt Count (182-369) K/mm3 MPV (9.4-12.3) fl Neut % (Auto) (34.0-71.1) % Lymph % (Auto) (19.3-51.7) % [place] % (Auto) (4.7-12.5) % Eos % (Auto) (0.7-5.8) Baso % (Auto) (0.1-1.2) % Neut # (Auto) (1.56-6.13) K/mm3 Lymph # (Auto) (1.18-3.74) K/mm3 [place] # (Auto) (0.24-0.36) K/mm3 Eos # (Auto) (0.04-0.36) K/mm3 Baso # (Auto) (0.01-0.08) K/mm3 Manual Slide Review PT (8.0-13.0) SECONDS INR Sodium 139 (136-145) mEq/L Potassium 3.3 L (3.5-5.1) mEq/L Chloride 105 (98-107) mEq/L Carbon Dioxide 22 (21-32) mEq/L Anion Gap 15.3 H (5-15) BUN 10 (7-18) mg/dL Creatinine 0.9 (0.55-1.02) mg/dL Est Cr Clr Drug Dosing 40.55 mL/min Estimated GFR (MDRD) > 60 (>60) mL/min BUN/Creatinine Ratio 11.1 L (14-18) Glucose 92 (83-115) mg/dL Calcium 8.2 L (8.5-10.1) mg/dL Magnesium 1.8 (1.8-2.4) mg/dl Total Bilirubin 0.4 (0.2-1.0) mg/dL AST 23 (15-37) U/L ALT 23 (14-59) U/L Alkaline Phosphatase 105 (46-116) U/L C-Reactive Protein (<1.0) mg/dL Total Protein 6.3 L (6.4-8.2) g/dl Albumin 2.3 L (3.4-5.0) g/dl Globulin 4.0 gm/dL Albumin/Globulin Ratio 0.6 L (1-2) Lipase (73-393) U/L Med Orders - Current: Current Medications Acetaminophen (Tylenol) 975 mg PO DAILY [facility] Last Admin: 06/25/17 09:15 Dose: 975 mg Acetaminophen (Tylenol) 650 mg PO Q6H PRN PRN Reason: Pain (mild 1-3) Last Admin: 06/25/17 22:47 Dose: 650 mg Albuterol/Ipratropium (Duoneb 3.0-0.5 Mg/3 Ml) 3 ml NEB Q4H PRN PRN Reason: Shortness Of Breath/wheezing Amitriptyline HCl (Elavil) 100 mg PO BEDTIME [facility] Last Admin: 06/25/17 20:38 Dose: 100 mg Bisacodyl (Dulcolax) 10 mg RECTAL DAILY PRN PRN Reason: Constipation Bumetanide (Bumex) 0.5 mg IVPUSH ONETIME ONE Stop: 06/26/17 08:49 Digoxin (Lanoxin) 62.5 mcg PO DAILY [facility] Last Admin: 06/25/17 09:11 Dose: 62.5 mcg Diltiazem HCl (Dilacor Xr) 240 mg PO DAILY@0600 [facility] Last Admin: 06/26/17 06:16 Dose: 240 mg Famotidine (Pepcid) 20 mg PO BID [facility] Furosemide (Lasix) 20 mg PO 0914 [facility] Hydralazine HCl (Apresoline) 20 mg IVPUSH Q4H PRN PRN Reason: Hypertension Levofloxacin/Dextrose 750 mg/ (Premix) 150 mls @ 100 mls/hr IV Q48H [facility] Sodium Chloride (Normal Saline) 1,000 mls @ 50 mls/hr IV ASDIRECTED [facility] Last Admin: 06/25/17 22:32 Dose: 50 mls/hr Levothyroxine Sodium (Synthroid) 88 mcg PO ACBREAKFAST [facility] Last Admin: 06/26/17 06:16 Dose: 88 mcg Lorazepam (Ativan) 0.5 mg PO Q8H PRN PRN Reason: Anxiety Magnesium Sulfate (Pharmacy To Dose - Magnesium Replacement) 1 dose .XX ASDIRECTED [facility] Memantine (Namenda) 10 mg PO BID [facility] Last Admin: 06/25/17 20:38 Dose: 10 mg Metoprolol Succinate (Toprol Xl) 50 mg PO DAILY [facility] Last Admin: 06/25/17 09:14 Dose: 50 mg Metoprolol Tartrate (Lopressor) 5 mg IVPUSH Q4H PRN PRN Reason: Tachycardia Ondansetron HCl (Zofran) 4 mg IV Q6H PRN PRN Reason: Nausea/Vomiting Potassium Chloride (Pharmacy To Dose - Potassium Replacement) 1 dose .XX ASDIRECTED [facility] Sodium Chloride (Saline Flush) 10 ml FLUSH ASDIRECTED PRN PRN Reason: Keep Vein Open Last Admin: 06/24/17 11:40 Dose: 10 ml Sodium Chloride (Saline Flush) 10 ml FLUSH ONETIME PRN PRN Reason: IV FLUSH Last Admin: 06/24/17 13:50 Dose: 10 ml Discontinued Medications Acetaminophen (Tylenol) 650 mg RECTAL NOW ONE Stop: 06/24/17 15:41 Last Admin: 06/24/17 15:49 Dose: 650 mg Acetaminophen (Tylenol) 650 mg RECTAL Q6H PRN PRN Reason: Pain (mild 1-3) Diatrizoate Meglum/Diatrizoate Sod (Gastrografin 37%) 90 ml PO ONETIME ONE Stop: 06/24/17 13:51 Last Admin: 06/24/17 13:51 Dose: 90 ml Diphtheria/Tetanus/Acell Pertussis (Adacel) 0.5 ml IM .ONCE ONE Stop: 06/25/17 11:22 Furosemide (Lasix) 20 mg IVPUSH DAILY [facility] Last Admin: 06/25/17 09:17 Dose: 20 mg Hydralazine HCl (Apresoline) 20 mg IVPUSH Q4H PRN PRN Reason: Hypertension Hydromorphone HCl (Dilaudid) 0.25 mg IVPUSH Q2H PRN PRN Reason: Pain (severe 7-10) Sodium Chloride (Normal Saline) 1,000 mls @ 150 mls/hr IV ASDIRECTED [facility] Last Admin: 06/25/17 15:56 Dose: 150 mls/hr Sodium Chloride (Normal Saline) 500 mls @ 999 mls/hr IV .BOLUS ONE Stop: 06/24/17 11:51 Last Admin: 06/24/17 11:45 Dose: 999 mls/hr Sodium Chloride (Normal Saline) 100 mls @ 65 mls/hr IV ASDIRECTED [facility] Last Admin: 06/24/17 13:50 Dose: 65 mls/hr Levofloxacin/Dextrose 750 mg/ (Premix) 150 mls @ 100 mls/hr IV Q24H [facility] Last Admin: 06/24/17 20:07 Dose: 100 mls/hr Iopamidol (Isovue-300 (61%)) 100 ml IVPUSH ONETIME ONE Stop: 06/24/17 12:45 Last Admin: 06/24/17 13:50 Dose: 100 ml Levothyroxine Sodium (Synthroid) 88 mcg PO DAILY [facility] Metoprolol Tartrate (Lopressor) 5 mg IVPUSH Q4H PRN PRN Reason: Tachycardia Non-Formulary Medication (L. Acidophilus/Lactobac Spor [Acidophilus X-Str Captab ]) 1 tab PO BID [facility] Pantoprazole Sodium (Protonix Iv) 40 mg IVPUSH DAILY [facility] Last Admin: 06/25/17 09:17 Dose: 40 mg Pantoprazole Sodium (Protonix) 40 mg PO BIDMEALS [facility] Pneumococcal 13-Valent Conj Vacc (Prevnar 13) 0.5 ml IM .ONCE ONE Stop: 06/25/17 11:23 Potassium Chloride (Klor-Con M20) 20 meq PO Q3HR [facility] Stop: 06/25/17 00:01 Last Admin: 06/25/17 00:57 Dose: 20 meq - Exam Quality Assessment: DVT Prophylaxis General: Alert, Oriented, Cooperative, No Acute Distress HEENT: Pupils Equal, EOMI, Mucous Membr. Moist/[place] Neck: Supple Lungs: Clear to Auscultation, Normal Respiratory Effort, Decreased Breath Sounds (bases) Cardiovascular: Irregular Rhythm GI/Abdominal Exam: Normal Bowel Sounds, Soft, Non-Tender (Female) Exam: Deferred Extremities: Normal Inspection Peripheral Pulses: 1+: Dorsalis Pedis (L), Dorsalis Pedis (R) Neurological: No New Focal Deficit Psy/Mental Status: Alert, Normal Affect, Normal Mood - Problem List & Annotations (1) Pancreatitis SNOMED Code(s): 94417362 Code(s): K85.90 - ACUTE PANCREATITIS WITHOUT NECROSIS OR INFECTION, UNSP Status: Acute Priority: High Current Visit: Yes Qualifiers: Chronicity: acute Pancreatitis type: idiopathic Acute pancreatitis complication: unspecified Qualified Code(s): K85.00 - Idiopathic acute pancreatitis without necrosis or infection (2) Subtherapeutic international normalized ratio (INR) SNOMED Code(s): 688859253 Code(s): R79.1 - ABNORMAL COAGULATION PROFILE Status: Acute Priority: High Current Visit: Yes (3) Hypokalemia SNOMED Code(s): 54999250 Code(s): E87.6 - HYPOKALEMIA Status: Acute Priority: High Current Visit : Yes (4) Afib, Atrial fibrillation SNOMED Code(s): 79740868 Code(s): I48.91 - UNSPECIFIED ATRIAL FIBRILLATION Status: Chronic Priority: Low Current Visit: No - Problem List Review Problem List Initiated/Reviewed/Updated: Yes - My Orders Last 24 Hours: My Active Orders 06/26/17 08:45 LORazepam [Ativan] 0.5 mg PO Q8H PRN 06/26/17 08:48 Bumetanide [Bumex] 0.5 mg IVPUSH ONETIME ONE 06/26/17 08:49 IS (RT) [RT Incentive Spirometry] [RC] Q2HWA 06/26/17 09:00 Famotidine [Pepcid] 20 mg PO BID 06/26/17 09:14 Furosemide [[place]ix] [place] [address]/26/17 Breakfast Full Liquid Diet [DIET] - Plan Plan:: I/P: Acute: Pancreatitis -Etiology- uncertain, she is on PPI at home, WBC elevated, CRP elevated -CT scan of abd with inflammation surrounding pancreas consistent with pancreatitis however lipase level not significantly elevated -IV ABX -IV hydration, rate decreased -H2 olimpia; DC PPI -Advance diet today as has tolerated clear liquids thus far; if tolerates diet may DC home tomorrow am. Supratheraputic INR - INR 4.25 in ER ---> 4.62-->4.9, likely now elevated due to levaquin abx being given - Will continue to hold warfarin and monitor - Pharmacy to dose warfarin Hypokalemia - Cont to follow and replete PRN - Pharmacy to dose Chronic: Alzheimer's dementia, stable A. fib--rate controlled; warfarin for anticoag as above Heart failure, stable, restart home lasix dose today, IV bumex x 1 dose today hyperglycemia Hypertension, stable H/O PE - on warfarin Recurrent UTIs, UA negative in ED Graves' disease chronic back pain Plan: Admit to M/S/P with telemetry SW/CM for discharge planning--if able to tolerate PO advancement to regular diet today, plan dc in next 24-48 hours pending improvement of labs and clinical status. GI prophylaxis Pt. has supratheraputic INR so will only utilize [employer]LALLI Hose for now. PT/OT Routine labs Other orders as indicated above Full code status.
[2017-06-26] MEDS: Metoprolol Succinate 50 MG Tab.ER PO SCH (10:05)
[2017-06-26] MEDS: Digoxin 125 MCG Tab PO SCH (10:07)
[2017-06-26] MEDS: Acetaminophen 325 MG Tab PO SCH (10:07)
[2017-06-26] MEDS: Memantine 10 MG Tab PO SCH ×2 (10:07→21:01)
[2017-06-26] MEDS: Furosemide 20 MG Tab PO SCH (10:08)
[2017-06-26] MEDS: Famotidine 20 MG Tab PO SCH ×2 (10:08→21:02)
[2017-06-26] MEDS: Pantoprazole 40 MG Vial IVPUSH SCH (10:09)
[2017-06-26] MEDS ORDERED: Magnesium Oxide 400 MG Tab PO ONE (12:30)
[2017-06-26] MEDS: Potassium Chloride 20 MEQ Tab.ER PO SCH ×2 (13:45→17:32)
[2017-06-26] MEDS ORDERED: Pantoprazole 40 MG Tab.CR PO SCH (17:00)
[2017-06-26] MEDS ORDERED: Levofloxacin/Dextrose 5%-Water 750 MG in Premix Bag 1 BAG IV SCH ×4 (18:30)
[2017-06-26] MEDS: Amitriptyline 25 MG Tab PO SCH (21:01)
[2017-06-27] MEDS: LORazepam 0.5 MG Tab PO PRN ×2 (00:19→20:24)
[2017-06-27] MEDS: Acetaminophen 325 MG Tab PO PRN (04:59)
[2017-06-27] MEDS: Levothyroxine 88 MCG Tab PO SCH (05:04)
[2017-06-27] MEDS: Diltiazem 240 MG Cap.ER PO SCH (05:05)
--- NOTE | 2017-06-27 07:47 | PCM.PN ---
- General Info Date of Service: 06/27/17 Admission Dx/Problem (Free Text): Admission Diagnosis/Problem Admission Diagnosis/Problem Pancreatitis Subjective Update: Follow Up Functional Status: Reports: Pain Controlled, Tolerating Diet, Urinating. Denies : New Symptoms - Review of Systems General: Denies: Fever, Weakness, Fatigue, Malaise HEENT: Reports: No Symptoms. Denies: Visual Changes Cardiovascular: Denies: Chest Pain Gastrointestinal: Denies: Abdominal Pain, Nausea, Vomiting Genitourinary: Reports: No Symptoms, Dysuria Musculoskeletal: Reports: No Symptoms Skin: Denies: Cyanosis, Mottled, Pallor, Diaphoresis, Rash Neurological: Denies: Difficulty Walking, Weakness, Gait Disturbance Psychiatric: Reports: Confusion (baseline dementia). Denies: Depression, Mood Lability, Anxiety, Agitation, Cravings, Hallucinations, Suicidal Ideation Systems Review Comment:: No significant overnight issues. Has had issues with sundowning. She appears clinically stable and tolerating regular diet well. She has no new complaints. - Patient Data Vitals - Most Recent: Last Vital Signs Temp 36.8 C 06/27/17 04:00 Pulse 65 06/27/17 05:03 Resp 18 06/27/17 04:00 BP 119/77 06/27/17 05:03 Pulse Ox 96 06/27/17 05:03 Weight - Most Recent: 85.956 kg I&O - Last 24 Hours: Intake & Output 06/26/17 06/27/17 06/27/17 22:59 06:59 14:59 Intake Total 350 600 Output Total 600 Balance -250 600 Lab Results Last 24 Hours: Laboratory Results - last 24 hr 06/27/17 06/27/17 06/27/17 Range/Units 06:10 06:25 06:25 WBC 11.68 H (3.98-10.04) K/mm3 RBC 3.73 L (3.98-5.22) M/mm3 Hgb 11.5 (11.2-15.7) gm/L Hct 34.9 (34.1-44.9) % MCV 93.6 (79.4-94.8) fl MCH 30.8 (25.6-32.2) pg MCHC 33.0 (32.2-35.5) g/dl RDW Std Deviation 47.2 H (36.4-46.3) fL Plt Count 269 (182-369) K/mm3 MPV 10.9 (9.4-12.3) fl Neut % (Auto) 82.3 H (34.0-71.1) % Lymph % (Auto) 8.0 L (19.3-51.7) % [place] % (Auto) 6.8 (4.7-12.5) % Eos % (Auto) 2.3 (0.7-5.8) Baso % (Auto) 0.3 (0.1-1.2) % Neut # (Auto) 9.62 H (1.56-6.13) K/mm3 Lymph # (Auto) 0.94 L (1.18-3.74) K/mm3 [place] # (Auto) 0.79 H (0.24-0.36) K/mm3 Eos # (Auto) 0.27 (0.04-0.36) K/mm3 Baso # (Auto) 0.03 (0.01-0.08) K/mm3 PT 42.7 H (8.0-13.0) SECONDS INR 3.61 Sodium 140 (136-145) mEq/L Potassium 3.9 (3.5-5.1) mEq/L Chloride 106 (98-107) mEq/L Carbon Dioxide 23 (21-32) mEq/L Anion Gap 14.9 (5-15) BUN 12 (7-18) mg/dL Creatinine 0.9 (0.55-1.02) mg/dL Est Cr Clr Drug Dosing 40.55 mL/min Estimated GFR (MDRD) > 60 (>60) mL/min BUN/Creatinine Ratio 13.3 L (14-18) Glucose 97 (83-115) mg/dL Calcium 8.5 (8.5-10.1) mg/dL Magnesium 1.9 (1.8-2.4) mg/dl Total Bilirubin 0.4 (0.2-1.0) mg/dL AST 28 (15-37) U/L ALT 27 (14-59) U/L Alkaline Phosphatase 99 (46-116) U/L C-Reactive Protein 12.8 H* (<1.0) mg/dL Total Protein 6.2 L (6.4-8.2) g/dl Albumin 2.4 L (3.4-5.0) g/dl Globulin 3.8 gm/dL Albumin/Globulin Ratio 0.6 L (1-2) Med Orders - Current: Current Medications Acetaminophen (Tylenol) 975 mg PO DAILY [facility] Last Admin: 06/26/17 10:07 Dose: 975 mg Acetaminophen (Tylenol) 650 mg PO Q6H PRN PRN Reason: Pain (mild 1-3) Last Admin: 06/27/17 04:59 Dose: 650 mg Albuterol/Ipratropium (Duoneb 3.0-0.5 Mg/3 Ml) 3 ml NEB Q4H PRN PRN Reason: Shortness Of Breath/wheezing Amitriptyline HCl (Elavil) 100 mg PO BEDTIME [facility] Last Admin: 06/26/17 21:01 Dose: 100 mg Bisacodyl (Dulcolax) 10 mg RECTAL DAILY PRN PRN Reason: Constipation Digoxin (Lanoxin) 62.5 mcg PO DAILY [facility] Last Admin: 06/26/17 10:07 Dose: 62.5 mcg Diltiazem HCl (Dilacor Xr) 240 mg PO DAILY@0600 [facility] Last Admin: 06/27/17 05:05 Dose: 240 mg Famotidine (Pepcid) 20 mg PO BID [facility] Last Admin: 06/26/17 21:02 Dose: 20 mg Furosemide (Lasix) 20 mg PO DAILY [facility] Last Admin: 06/26/17 10:08 Dose: 20 mg Hydralazine HCl (Apresoline) 20 mg IVPUSH Q4H PRN PRN Reason: Hypertension Levofloxacin/Dextrose 750 mg/ (Premix) 150 mls @ 100 mls/hr IV Q48H [facility] Last Admin: 06/26/17 18:33 Dose: 100 mls/hr Levothyroxine Sodium (Synthroid) 88 mcg PO ACBREAKFAST [facility] Last Admin: 06/27/17 05:04 Dose: 88 mcg Lorazepam (Ativan) 0.5 mg PO Q8H PRN PRN Reason: Anxiety Last Admin: 06/27/17 00:19 Dose: 0.5 mg Magnesium Sulfate (Pharmacy To Dose - Magnesium Replacement) 1 dose .XX ASDIRECTED [facility] Memantine (Namenda) 10 mg PO BID [facility] Last Admin: 06/26/17 21:01 Dose: 10 mg Metoprolol Succinate (Toprol Xl) 50 mg PO DAILY [facility] Last Admin: 06/26/17 10:05 Dose: 50 mg Metoprolol Tartrate (Lopressor) 5 mg IVPUSH Q4H PRN PRN Reason: Tachycardia Ondansetron HCl (Zofran) 4 mg IV Q6H PRN PRN Reason: Nausea/Vomiting Pantoprazole Sodium (Protonix Iv) 40 mg IVPUSH DAILY [facility] Last Admin: 06/26/17 10:09 Dose: 40 mg Potassium Chloride (Pharmacy To Dose - Potassium Replacement) 1 dose .XX ASDIRECTED [facility] Sodium Chloride (Saline Flush) 10 ml FLUSH ASDIRECTED PRN PRN Reason: Keep Vein Open Last Admin: 06/24/17 11:40 Dose: 10 ml Sodium Chloride (Saline Flush) 10 ml FLUSH ONETIME PRN PRN Reason: IV FLUSH Last Admin: 06/24/17 13:50 Dose: 10 ml Discontinued Medications Acetaminophen (Tylenol) 650 mg RECTAL NOW ONE Stop: 06/24/17 15:41 Last Admin: 06/24/17 15:49 Dose: 650 mg Acetaminophen (Tylenol) 650 mg RECTAL Q6H PRN PRN Reason: Pain (mild 1-3) Bumetanide (Bumex) 0.5 mg IVPUSH ONETIME ONE Stop: 06/26/17 08:49 Last Admin: 06/26/17 10:19 Dose: 0.5 mg Diatrizoate Meglum/Diatrizoate Sod (Gastrografin 37%) 90 ml PO ONETIME ONE Stop: 06/24/17 13:51 Last Admin: 06/24/17 13:51 Dose: 90 ml Diphtheria/Tetanus/Acell Pertussis (Adacel) 0.5 ml IM .ONCE ONE Stop: 06/25/17 11:22 Furosemide (Lasix) 20 mg IVPUSH DAILY [facility] Last Admin: 06/25/17 09:17 Dose: 20 mg Hydralazine HCl (Apresoline) 20 mg IVPUSH Q4H PRN PRN Reason: Hypertension Hydromorphone HCl (Dilaudid) 0.25 mg IVPUSH Q2H PRN PRN Reason: Pain (severe 7-10) Sodium Chloride (Normal Saline) 1,000 mls @ 150 mls/hr IV ASDIRECTED [facility] Last Admin: 06/25/17 15:56 Dose: 150 mls/hr Sodium Chloride (Normal Saline) 500 mls @ 999 mls/hr IV .BOLUS ONE Stop: 06/24/17 11:51 Last Admin: 06/24/17 11:45 Dose: 999 mls/hr Sodium Chloride (Normal Saline) 100 mls @ 65 mls/hr IV ASDIRECTED [facility] Last Admin: 06/24/17 13:50 Dose: 65 mls/hr Levofloxacin/Dextrose 750 mg/ (Premix) 150 mls @ 100 mls/hr IV Q24H [facility] Last Admin: 06/24/17 20:07 Dose: 100 mls/hr Levofloxacin/Dextrose 750 mg/ (Premix) 150 mls @ 100 mls/hr IV Q48H [facility] Sodium Chloride (Normal Saline) 1,000 mls @ 50 mls/hr IV ASDIRECTED [facility] Last Admin: 06/25/17 22:32 Dose: 50 mls/hr Iopamidol (Isovue-300 (61%)) 100 ml IVPUSH ONETIME ONE Stop: 06/24/17 12:45 Last Admin: 06/24/17 13:50 Dose: 100 ml Levothyroxine Sodium (Synthroid) 88 mcg PO DAILY [facility] Magnesium Oxide (Magnesium Oxide) 400 mg PO ONETIME ONE Stop: 06/26/17 12:31 Last Admin: 06/26/17 13:45 Dose: 400 mg Metoprolol Tartrate (Lopressor) 5 mg IVPUSH Q4H PRN PRN Reason: Tachycardia Non-Formulary Medication (L. Acidophilus/Lactobac Spor [Acidophilus X-Str Captab ]) 1 tab PO BID [facility] Pantoprazole Sodium (Protonix) 40 mg PO BIDMEALS [facility] Pneumococcal 13-Valent Conj Vacc (Prevnar 13) 0.5 ml IM .ONCE ONE Stop: 06/25/17 11:23 Potassium Chloride (Klor-Con M20) 20 meq PO Q3HR [facility] Stop: 06/25/17 00:01 Last Admin: 06/25/17 00:57 Dose: 20 meq Potassium Chloride (Klor-Con M20) 40 meq PO Q4H [facility] Stop: 06/26/17 16:31 Last Admin: 06/26/17 17:32 Dose: 40 meq - Exam General: Alert, Cooperative, No Acute Distress HEENT: Pupils Equal, Pupils Reactive, Mucous Membr. Moist/[place] Neck: Supple, Trachea Midline, No JVD Lungs: Clear to Auscultation, Normal Respiratory Effort Cardiovascular: Regular Rate, Regular Rhythm GI/Abdominal Exam: Normal Bowel Sounds, Soft, Non-Tender, No Organomegaly, No Distention, No Abnormal Bruit, No Mass (Female) Exam: Deferred Back Exam: Normal Inspection, Decreased Range of Motion Extremities: Normal Inspection, Normal Range of Motion, Non-Tender, No Pedal Edema, Normal Capillary Refill Peripheral Pulses: 2+: Dorsalis Pedis (L), Dorsalis Pedis (R) Skin: Warm, Dry, Intact Neurological: No New Focal Deficit Psy/Mental Status: Alert, Normal Affect, Normal Mood, Other - Problem List Review Problem List Initiated/Reviewed/Updated: Yes - Plan Plan:: I/P: Acute: Pancreatitis. She continues to improves - Etiology- uncertain, she is on PPI at home, WBC elevated, CRP elevated -CT scan of abd with inflammation surrounding pancreas consistent with pancreatitis however lipase level not significantly elevated - IV ABX - IV hydration, rate decreased - H2 olimpia; DC PPI - Advance diet today as has tolerated clear liquids thus far; if tolerates diet may DC home tomorrow am. Supratheraputic INR, Continues to Improve - INR 4.25 in ER ---> 4.62--> 4.9 ---> 3.61, likely now elevated due to levaquin abx being given - Will continue to hold warfarin and monitor - Pharmacy to dose warfarin - Spoke to daughters to consider DOA for her stroke prophylaxis Resolved: Hypokalemia - K 3.9 - Cont to follow and replete PRN - Pharmacy to dose Chronic: Alzheimer's dementia, stable A. fib--rate controlled; warfarin for anticoag as above Heart failure, stable, restart home lasix dose today, IV bumex x 1 dose today hyperglycemia Hypertension, stable H/O PE - on warfarin Recurrent UTIs, UA negative in ED Graves' disease chronic back pain Plan: She remains clinically stable Continue current treatment Saline Lock IV PPI d/c GI prophylaxis: H2B Continue PT/OT Protocol SW/CM for discharge planning Other orders as indicated above Full code status Possible d/c in AM
[2017-06-27] MEDS: Digoxin 125 MCG Tab PO SCH (08:29)
[2017-06-27] MEDS: Famotidine 20 MG Tab PO SCH ×2 (08:32→20:24)
[2017-06-27] MEDS: Memantine 10 MG Tab PO SCH ×2 (08:33→20:24)
[2017-06-27] MEDS: Metoprolol Succinate 50 MG Tab.ER PO SCH (08:33)
[2017-06-27] MEDS: Furosemide 20 MG Tab PO SCH (08:33)
[2017-06-27] MEDS: Acetaminophen 325 MG Tab PO SCH (08:34)
[2017-06-27] MEDS ORDERED: Magnesium Sulfate/Water 2 GM in Premix Bag 1 BAG IV ONE (10:00)
[2017-06-27] MEDS: Pantoprazole 40 MG Vial IVPUSH SCH (17:44)
[2017-06-27] MEDS: Amitriptyline 25 MG Tab PO SCH (20:23)
--- NOTE | 2017-06-27 23:17 | PCM.DCSUM1 ---
Discharge Summary - Hospital Course Brief History: Yesika Henao is an 81-year-old female presented to ED with abdominal pain, nausea, and intermittent chest discomfort. She was admitted for medical management of acute pancreatitis. - Discharge Data Discharge Date: 06/28/17 Discharge Disposition: DC/Tfer to Other 70 Condition: Good - Discharge Diagnosis/Problem(s) (1) Supratherapeutic INR SNOMED Code(s): 124617439, 084625133 ICD Code: R79.1 - ABNORMAL COAGULATION PROFILE Status: Acute (2) Hypokalemia due to inadequate potassium intake SNOMED Code(s): 90516932 ICD Code: E87.6 - HYPOKALEMIA Status: Resolved (3) Pancreatitis SNOMED Code(s): 21949853 ICD Code: K85.90 - ACUTE PANCREATITIS WITHOUT NECROSIS OR INFECTION, UNSP Status: Acute Priority: High Qualifiers: Chronicity: acute Pancreatitis type: idiopathic Acute pancreatitis complication: unspecified Qualified Code(s): K85.00 - Idiopathic acute pancreatitis without necrosis or infection - Patient Summary/Data Operative Procedure(s) Performed: None Complications: None Consults: Consultations 06/24/17 16:52 Consult to Case Management [CONS] Routine Consult to Network Systems Administrator [CONS] Routine OT Evaluation and Treatment [CONS] Routine PT Evaluation and Treatment [CONS] Routine Labs Pending at D/C: None Recommended Follow-up Testing/Procedures: INR and CBC Thursday Hospital Course: Patient was primarily admitted for medical management of acute pancreatitis. Her lipase was normal but abdominal CT scan showed an inflamed pancreas. Patient received initial treatment in ED before she was sent to the floor for further management. At the floor, she continued to received intravenous antibiotic, supportive care, and pain medication. The patient slowly improved on this regimen. Her hospital course was uncomplicated. However she came in with supratherapeutic INR level. We held her warfarin and followed her level until she was back to normal range. The rest of her chronic medical illness remained stable during this admission. She had been stable and now ready for discharge. Patient will go home with additional course of oral antibiotic to take to complete her treatment. She was advised to resume her warfarin dose tonight and have a repeat INR Thursday and CBC level in 1 week. Patient was further advised to come back or seek immediate care should her symptoms persist or get worse. Patient expressed understanding and in agreement with plans as discussed above. All questions were answered. Her PCP was called and updated about her discharge care plan. - Patient Instructions Diet: Heart Healthy Diet, Usual Diet as Tolerated, No Alcoholic Beverages Activity: As Tolerated Driving: Do Not Drive Showering/Bathing: May Shower Notify Provider of: Fever, Increased Pain, Nausea and/or Vomiting Other/Special Instructions: - Please take all medications directed. - Hold you warfarin dose tonight. - Recommend INR and CBC labs on Thursday. - Call or follow up with your doctor if you have any further questions or concerns right after discharge - Discharge Plan Prescriptions/Med Rec: Famotidine [Pepcid] 20 mg PO BID #60 tablet Levofloxacin [Levaquin] 500 mg PO Q24H #5 tablet Home Medications: Home Meds Amitriptyline HCl 100 mg PO BEDTIME 05/23/14 [History] Levothyroxine [Synthroid] 88 mcg PO ACBREAKFAST 05/23/14 [History] Metoprolol Succinate 50 mg PO DAILY 05/23/14 [History] atorvaSTATin [Lipitor] 10 mg PO BEDTIME 05/23/14 [History] Diltiazem [Dilacor XR] 240 mg PO DAILY@0600 #30 cap.er 06/06/15 [Rx] Furosemide [Lasix] 20 mg PO 0914 06/15/15 [History] LORazepam [Ativan] 0.5 - 1 mg PO Q8H PRN 12/12/15 [History] Warfarin [Coumadin] 2 mg PO 1800 12/23/15 [History] Acetaminophen 1,000 mg PO 0621 06/24/17 [History] Digoxin 62.5 mcg PO 1200 06/24/17 [History] Docusate Sodium [Colace] 100 mg PO DAILY 06/24/17 [History] Iron Aspgly&PS/B12/C/Ca/FA/Suc [Niferex-150 Forte] 1 cap PO BID 06/24/17 [ History] L. Acidophilus/Lactobac Spor [Acidophilus X-Str Captab] 1 tab PO BID 06/24/17 [ History] Memantine HCl [Namenda] 10 mg PO BID 06/24/17 [History] Ondansetron HCl [Zofran] 4 mg PO Q8H PRN 06/24/17 [History] Polyethylene Glycol 3350 [MiraLAX] 17 gm PO DAILY 06/24/17 [History] Promethazine HCl 12.5 mg PO Q4H PRN 06/24/17 [History] Famotidine [Pepcid] 20 mg PO BID #60 tablet 06/26/17 [Rx] Levofloxacin [Levaquin] 500 mg PO Q24H #5 tablet 06/26/17 [Rx] Patient Handouts: Warfarin: What You Need to Know, Acute Pancreatitis Referrals: Rody Yanes PA-C [Primary Care Provider] - - Discharge Summary/Plan Comment DC Time >30 min.: Yes (45 mins) Discharge Summary/Plan Comment: Discharge back to the [facility] - General Info Date of Service: 06/28/17 Admission Dx/Problem (Free Text: Admission Diagnosis/Problem Admission Diagnosis/Problem Pancreatitis Subjective Update: Follow Up Functional Status: Reports: Pain Controlled, Tolerating Diet, Ambulating, Urinating. Denies: New Symptoms - Review of Systems General: Denies: Fever, Weakness, Fatigue, Malaise, Chills HEENT: Reports: No Symptoms Pulmonary: Denies: Shortness of Breath Cardiovascular: Denies: Chest Pain, Palpitations, Dyspnea on Exertion, Lightheadedness Gastrointestinal: Reports: Flatus. Denies: Abdominal Pain, Decreased Appetite, Difficulty Swallowing, Nausea, Vomiting Genitourinary: Reports: No Symptoms Musculoskeletal: Reports: No Symptoms Skin: Denies: Cyanosis, Mottled, Pallor, Diaphoresis, Rash Neurological: Reports: Confusion (baseline dementia). Denies: Difficulty Walking, Weakness, Gait Disturbance Psychiatric: Denies: Depression, Mood Lability, Anxiety, Agitation, Cravings, Hallucinations, Suicidal Ideation Systems Review Comment: No overnight or acute issues. She is doing relatively well. She is tolerating her diet without any issues. She has no new complaints. - Patient Data Vitals - Most Recent: Last Vital Signs Temp 36.7 C 06/27/17 20:24 Pulse 64 06/27/17 20:30 Resp 18 06/27/17 20:24 BP 121/87 06/27/17 20:30 Pulse Ox 94 L 06/27/17 20:30 Weight - Most Recent: 85.956 kg I&O - Last 24 hours: Intake & Output 06/27/17 06/27/17 06/28/17 14:59 22:59 06:59 Intake Total 300 1090 Output Total 200 Balance 300 890 Lab Results - Last 24 hrs: Laboratory Results - last 24 hr 06/27/17 06/27/17 06/27/17 Range/Units 06:10 06:25 06:25 WBC 11.68 H (3.98-10.04) K/mm3 RBC 3.73 L (3.98-5.22) M/mm3 Hgb 11.5 (11.2-15.7) gm/L Hct 34.9 (34.1-44.9) % MCV 93.6 (79.4-94.8) fl MCH 30.8 (25.6-32.2) pg MCHC 33.0 (32.2-35.5) g/dl RDW Std Deviation 47.2 H (36.4-46.3) fL Plt Count 269 (182-369) K/mm3 MPV 10.9 (9.4-12.3) fl Neut % (Auto) 82.3 H (34.0-71.1) % Lymph % (Auto) 8.0 L (19.3-51.7) % Greer % (Auto) 6.8 (4.7-12.5) % Eos % (Auto) 2.3 (0.7-5.8) Baso % (Auto) 0.3 (0.1-1.2) % Neut # (Auto) 9.62 H (1.56-6.13) K/mm3 Lymph # (Auto) 0.94 L (1.18-3.74) K/mm3 Greer # (Auto) 0.79 H (0.24-0.36) K/mm3 Eos # (Auto) 0.27 (0.04-0.36) K/mm3 Baso # (Auto) 0.03 (0.01-0.08) K/mm3 Manual Slide Review Abnormal smear PT 42.7 H (8.0-13.0) SECONDS INR 3.61 Sodium 140 (136-145) mEq/L Potassium 3.9 (3.5-5.1) mEq/L Chloride 106 (98-107) mEq/L Carbon Dioxide 23 (21-32) mEq/L Anion Gap 14.9 (5-15) BUN 12 (7-18) mg/dL Creatinine 0.9 (0.55-1.02) mg/dL Est Cr Clr Drug Dosing 40.55 mL/min Estimated GFR (MDRD) > 60 (>60) mL/min BUN/Creatinine Ratio 13.3 L (14-18) Glucose 97 (83-115) mg/dL Calcium 8.5 (8.5-10.1) mg/dL Magnesium 1.9 (1.8-2.4) mg/dl Total Bilirubin 0.4 (0.2-1.0) mg/dL AST 28 (15-37) U/L ALT 27 (14-59) U/L Alkaline Phosphatase 99 (46-116) U/L C-Reactive Protein 12.8 H* (<1.0) mg/dL Total Protein 6.2 L (6.4-8.2) g/dl Albumin 2.4 L (3.4-5.0) g/dl Globulin 3.8 gm/dL Albumin/Globulin Ratio 0.6 L (1-2) Med Orders - Current: Current Medications Acetaminophen (Tylenol) 975 mg PO DAILY [facility] Last Admin: 06/27/17 08:34 Dose: 975 mg Acetaminophen (Tylenol) 650 mg PO Q6H PRN PRN Reason: Pain (mild 1-3) Last Admin: 06/27/17 04:59 Dose: 650 mg Albuterol/Ipratropium (Duoneb 3.0-0.5 Mg/3 Ml) 3 ml NEB Q4H PRN PRN Reason: Shortness Of Breath/wheezing Amitriptyline HCl (Elavil) 100 mg PO BEDTIME [facility] Last Admin: 06/27/17 20:23 Dose: 100 mg Bisacodyl (Dulcolax) 10 mg RECTAL DAILY PRN PRN Reason: Constipation Digoxin (Lanoxin) 62.5 mcg PO DAILY [facility] Last Admin: 06/27/17 08:29 Dose: 62.5 mcg Diltiazem HCl (Dilacor Xr) 240 mg PO DAILY@0600 [facility] Last Admin: 06/27/17 05:05 Dose: 240 mg Famotidine (Pepcid) 20 mg PO BID [facility] Last Admin: 06/27/17 20:24 Dose: 20 mg Furosemide (Lasix) 20 mg PO DAILY [facility] Last Admin: 06/27/17 08:33 Dose: 20 mg Hydralazine HCl (Apresoline) 20 mg IVPUSH Q4H PRN PRN Reason: Hypertension Levofloxacin/Dextrose 750 mg/ (Premix) 150 mls @ 100 mls/hr IV Q48H [facility] Last Admin: 06/26/17 18:33 Dose: 100 mls/hr Levothyroxine Sodium (Synthroid) 88 mcg PO ACBREAKFAST [facility] Last Admin: 06/27/17 05:04 Dose: 88 mcg Lorazepam (Ativan) 0.5 mg PO Q8H PRN PRN Reason: Anxiety Last Admin: 06/27/17 20:24 Dose: 0.5 mg Magnesium Sulfate (Pharmacy To Dose - Magnesium Replacement) 1 dose .XX ASDIRECTED [facility] Memantine (Namenda) 10 mg PO BID [facility] Last Admin: 06/27/17 20:24 Dose: 10 mg Metoprolol Succinate (Toprol Xl) 50 mg PO DAILY [facility] Last Admin: 06/27/17 08:33 Dose: 50 mg Metoprolol Tartrate (Lopressor) 5 mg IVPUSH Q4H PRN PRN Reason: Tachycardia Ondansetron HCl (Zofran) 4 mg IV Q6H PRN PRN Reason: Nausea/Vomiting Potassium Chloride (Pharmacy To Dose - Potassium Replacement) 1 dose .XX ASDIRECTED [facility] Sodium Chloride (Saline Flush) 10 ml FLUSH ASDIRECTED PRN PRN Reason: Keep Vein Open Last Admin: 06/24/17 11:40 Dose: 10 ml Sodium Chloride (Saline Flush) 10 ml FLUSH ONETIME PRN PRN Reason: IV FLUSH Last Admin: 06/24/17 13:50 Dose: 10 ml Discontinued Medications Acetaminophen (Tylenol) 650 mg RECTAL NOW ONE Stop: 06/24/17 15:41 Last Admin: 06/24/17 15:49 Dose: 650 mg Acetaminophen (Tylenol) 650 mg RECTAL Q6H PRN PRN Reason: Pain (mild 1-3) Bumetanide (Bumex) 0.5 mg IVPUSH ONETIME ONE Stop: 06/26/17 08:49 Last Admin: 06/26/17 10:19 Dose: 0.5 mg Diatrizoate Meglum/Diatrizoate Sod (Gastrografin 37%) 90 ml PO ONETIME ONE Stop: 06/24/17 13:51 Last Admin: 06/24/17 13:51 Dose: 90 ml Diphtheria/Tetanus/Acell Pertussis (Adacel) 0.5 ml IM .ONCE ONE Stop: 06/25/17 11:22 Furosemide (Lasix) 20 mg IVPUSH DAILY [facility] Last Admin: 06/25/17 09:17 Dose: 20 mg Hydralazine HCl (Apresoline) 20 mg IVPUSH Q4H PRN PRN Reason: Hypertension Hydromorphone HCl (Dilaudid) 0.25 mg IVPUSH Q2H PRN PRN Reason: Pain (severe 7-10) Sodium Chloride (Normal Saline) 1,000 mls @ 150 mls/hr IV ASDIRECTED [facility] Last Admin: 06/25/17 15:56 Dose: 150 mls/hr Sodium Chloride (Normal Saline) 500 mls @ 999 mls/hr IV .BOLUS ONE Stop: 06/24/17 11:51 Last Admin: 06/24/17 11:45 Dose: 999 mls/hr Sodium Chloride (Normal Saline) 100 mls @ 65 mls/hr IV ASDIRECTED [facility] Last Admin: 06/24/17 13:50 Dose: 65 mls/hr Levofloxacin/Dextrose 750 mg/ (Premix) 150 mls @ 100 mls/hr IV Q24H [facility] Last Admin: 06/24/17 20:07 Dose: 100 mls/hr Levofloxacin/Dextrose 750 mg/ (Premix) 150 mls @ 100 mls/hr IV Q48H [facility] Sodium Chloride (Normal Saline) 1,000 mls @ 50 mls/hr IV ASDIRECTED [facility] Last Admin: 06/25/17 22:32 Dose: 50 mls/hr Magnesium Sulfate 2 gm/ Premix 50 mls @ 50 mls/hr IV ONETIME ONE Stop: 06/27/17 10:59 Last Admin: 06/27/17 10:01 Dose: 50 mls/hr Iopamidol (Isovue-300 (61%)) 100 ml IVPUSH ONETIME ONE Stop: 06/24/17 12:45 Last Admin: 06/24/17 13:50 Dose: 100 ml Levothyroxine Sodium (Synthroid) 88 mcg PO DAILY [facility] Magnesium Oxide (Magnesium Oxide) 400 mg PO ONETIME ONE Stop: 06/26/17 12:31 Last Admin: 06/26/17 13:45 Dose: 400 mg Metoprolol Tartrate (Lopressor) 5 mg IVPUSH Q4H PRN PRN Reason: Tachycardia Non-Formulary Medication (L. Acidophilus/Lactobac Spor [Acidophilus X-Str Captab ]) 1 tab PO BID [facility] Pantoprazole Sodium (Protonix Iv) 40 mg IVPUSH DAILY [facility] Last Admin: 06/27/17 17:44 Dose: Not Given Pantoprazole Sodium (Protonix) 40 mg PO BIDMEALS [facility] Pneumococcal 13-Valent Conj Vacc (Prevnar 13) 0.5 ml IM .ONCE ONE Stop: 06/25/17 11:23 Potassium Chloride (Klor-Con M20) 20 meq PO Q3HR [facility] Stop: 06/25/17 00:01 Last Admin: 06/25/17 00:57 Dose: 20 meq Potassium Chloride (Klor-Con M20) 40 meq PO Q4H [facility] Stop: 06/26/17 16:31 Last Admin: 06/26/17 17:32 Dose: 40 meq - Exam General: Reports: Alert, Oriented, Cooperative, No Acute Distress HEENT: Reports: Pupils Equal, Pupils Reactive, EOMI Neck: Reports: Supple, Trachea Midline, No JVD Lungs: Reports: Normal Respiratory Effort, Decreased Breath Sounds Cardiovascular: Reports: Irregular Rhythm GI/Abdominal Exam: Normal Bowel Sounds, Soft, Non-Tender, No Organomegaly, No Distention, No Abnormal Bruit, No Mass (Female) Exam: Deferred Rectal (Female) Exam: Deferred Back Exam: Reports: Normal Inspection, Decreased Range of Motion Extremities: Normal Inspection, Normal Range of Motion, Non-Tender, No Pedal Edema, Normal Capillary Refill Skin: Reports: Warm, Dry, Intact Neurological: Reports: No New Focal Deficit Psy/Mental Status: Reports: Alert, Normal Affect, Normal Mood *Q Meaningful Use (DIS) - VTE *Q VTE Criteria *Q: - Stroke *Q Stroke Criteria *Q: - AMI *Q AMI Criteria *Q:
[2017-06-28] MEDS: Diltiazem 240 MG Cap.ER PO SCH (06:47)
[2017-06-28] MEDS: Levothyroxine 88 MCG Tab PO SCH (06:47)
[2017-06-28] MEDS: Metoprolol Succinate 50 MG Tab.ER PO SCH (09:50)
[2017-06-28] MEDS: Memantine 10 MG Tab PO SCH (09:51)
[2017-06-28] MEDS: Digoxin 125 MCG Tab PO SCH (09:52)
[2017-06-28] MEDS: Acetaminophen 325 MG Tab PO SCH (09:52)
[2017-06-28] MEDS: Famotidine 20 MG Tab PO SCH (09:52)
[2017-06-28] MEDS: Furosemide 20 MG Tab PO SCH (09:56)
[2017-06-28 13:06] VITALS: BP 111/66
== END 2017-06-28 15:58 | disposition other institution (70) | DRG 440 ==
LOC: JD.ED 10:34 → UNDOADMIN 16:32 → JD.MS 16:32 → UNDODISIN 06-28 15:58
PROVIDERS: ADMIT Internal Medicine; ATTEND Internal Medicine
DX: K85.00 Idiopathic acute pancreatitis without necrosis or infection (principal); K85.90 Acute pancreatitis without necrosis or infection, unspecified; E87.6 Hypokalemia; G30.9 Alzheimer's disease, unspecified; F02.80 Dementia in other diseases classified elsewhere, unspecified severity, without behavioral disturbance, psychotic disturbance, mood disturbance, and anxiety; I48.91 Unspecified atrial fibrillation; I11.0 Hypertensive heart disease with heart failure; I50.9 Heart failure, unspecified; H54.7 Unspecified visual loss; Z86.711 Personal history of pulmonary embolism; F41.9 Anxiety disorder, unspecified; Z79.01 Long term (current) use of anticoagulants; Z87.440 Personal history of urinary (tract) infections; E03.9 Hypothyroidism, unspecified; E05.00 Thyrotoxicosis with diffuse goiter without thyrotoxic crisis or storm; G89.29 Other chronic pain; M54.9 Dorsalgia, unspecified; Z88.0 Allergy status to penicillin; Z88.1 Allergy status to other antibiotic agents; Z88.7 Allergy status to serum and vaccine; Z88.8 Allergy status to other drugs, medicaments and biological substances; Z79.899 Other long term (current) drug therapy; R73.9 Hyperglycemia, unspecified
CPT/HCPCS: 36415; 71010; 74020; 74177; 80053; 80061; 81001; 83605; 83690; 84443; 84484; 85025; 85610; 86140; 87040 ×2; 93005; 96360; 96361; 99285; A9270; J7030; J7040; J7050 ×2; P9612; Q9963; Q9967; 83735; 87641; 97110-GO; 97112-GP; 97116-GP; 97162-GP; 97166-GO; 97530-GO; C9113; J1956; J3475

== ENCOUNTER 2017-09-24 16:35 | Inpatient (IN) | payer MEDICARE, BC ==
[2017-09-24] MEDS ORDERED: Sodium Chloride 0.9% 10 ML Syringe FLUSH PRN (17:00)
[2017-09-24] MEDS ORDERED: Sodium Chloride 0.9% 1,000 ML IV ONE (17:04)
[2017-09-24] MEDS ORDERED: Adenosine 6 MG/2 ML SDV IVPUSH ONE (17:38)
[2017-09-24] MEDS ORDERED: Adenosine 12 MG/4 ML SDV ONE (17:45)
[2017-09-24] MEDS ORDERED: Adenosine 6 MG/2 ML SDV ONE (17:45)
[2017-09-24] MEDS ORDERED: Diltiazem 25 MG/5 ML SDV IVPUSH ONE (17:55)
[2017-09-24] MEDS ORDERED: Diltiazem 25 MG/5 ML SDV ONE (17:57)
[2017-09-24] MEDS ORDERED: Diltiazem 125 MG in Sodium Chloride 0.9% 100 ML IV SCH (18:00)
--- NOTE | 2017-09-24 18:41 | EDM.PDOC ---
ED HPI GENERAL MEDICAL PROBLEM - General Chief Complaint: Abdominal Pain Stated Complaint: ABD PAIN Time Seen by Provider: 09/24/17 16:50 Source of Information: Reports: Patient, Family (daughter) History Limitations: Reports: No Limitations - History of Present Illness INITIAL COMMENTS - FREE TEXT/NARRATIVE: 82-year-old female presents with her daughter for evaluation treatment of abdominal pain. The patient is pleasantly demented and is unable to provide much reliable history. Reportedly the patient lives at [facility]. She experienced abdominal pain and an episode of vomiting earlier today. She also had a black tarry stool earlier today. She presented to the [facility] where they did an abdominal x-ray and found to have some air-fluid line. She was sent to us for CT and further management and care. Upon arrival to the ER she denies any chest pain, abdominal pain or any shortness of breath. Patient is on Coumadin. Patient has a history of GI bleeds and bowel obstructions. Reportedly the patient has a living will on file. Per the daughter's report they would like everything done and therefore she is a full code at this time. Abdominal Pain Score (Numeric/FACES): 1 - Related Data Allergies Allergy/AdvReac Type Severity Reaction Status Date / Time influenza virus vaccine, Allergy Hives Verified 09/24/17 16:42 specific [Influenza Virus Vacc,Specific] Penicillins Allergy Hives Verified 09/24/17 16:42 streptomycin Allergy Hives Verified 09/24/17 16:42 tetracycline [Tetracycline] Allergy Hives Verified 09/24/17 16:42 donepezil [From Aricept] AdvReac Stomach Verified 09/24/17 16:42 Upset Home Meds: Home Meds Amitriptyline HCl 100 mg PO BEDTIME 05/23/14 [History] Levothyroxine [Synthroid] 88 mcg PO ACBREAKFAST 05/23/14 [History] Metoprolol Succinate 50 mg PO DAILY 05/23/14 [History] atorvaSTATin [Lipitor] 10 mg PO BEDTIME 05/23/14 [History] Diltiazem [Dilacor XR] 240 mg PO DAILY@0600 #30 cap.er 06/06/15 [Rx] Furosemide [Lasix] 20 mg PO BID 06/15/15 [History] LORazepam [Ativan] 0.5 - 1 mg PO Q8H PRN 12/12/15 [History] Warfarin [Coumadin] 2 mg PO DAILY 12/23/15 [History] Acetaminophen 1,000 mg PO BID 06/24/17 [History] Digoxin 62.5 mcg PO 1200 06/24/17 [History] Docusate Sodium [Colace] 100 mg PO DAILY 06/24/17 [History] Iron Aspgly&PS/B12/C/Ca/FA/Suc [Niferex-150 Forte] 1 cap PO BID 06/24/17 [ History] L. Acidophilus/Lactobac Spor [Acidophilus X-Str Captab] 1 tab PO BID 06/24/17 [ History] Memantine HCl [Namenda] 10 mg PO BID 06/24/17 [History] Ondansetron HCl [Zofran] 4 mg PO Q8H PRN 06/24/17 [History] Polyethylene Glycol 3350 [MiraLAX] 17 gm PO DAILY 06/24/17 [History] Promethazine HCl 12.5 mg PO Q4H PRN 06/24/17 [History] Famotidine [Pepcid] 20 mg PO BID #60 tablet 06/26/17 [Rx] Past Medical History - Past Health History Medical/Surgical History: Denies Medical/Surgical History HEENT History: Reports: Cataract, Impaired Vision Other HEENT History: reading Glasses Cardiovascular History: Reports: Afib, Heart Failure, High Cholesterol, Hypertension, SOB on Exertion Other Cardiovascular History: Afib Respiratory History: Reports: PE Other Respiratory History: Daughters report, "Last thursday pt came in with blood clot in L lung and bilateral legs." Pt was in the hospital for 4 days in Jun 2015. 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 OB/BYN History: Hysterectomy Musculoskeletal History: Reports: Back Pain, Chronic Other Musculoskeletal History: degenrative joint disease Neurological History: Reports: Other (See Below) Psychiatric History: Reports: Anxiety, Dementia Endocrine/Metabolic History: Reports: Hypothyroidism - Infectious Disease History Infectious Disease History: Reports: Chicken Pox - Past Surgical History GI Surgical History: Reports: Hernia, Abdominal Endocrine Surgical History: Reports: None Musculoskeletal Surgical History: Reports: Hip Replacement Social & Family History - Family History Family Medical History: Noncontributory HEENT: Reports: None - Tobacco Use Smoking Status *Q: Never Smoker Second Hand Smoke Exposure: No - Caffeine Use Caffeine Use: Reports: Coffee - Alcohol Use Days Per Week of Alcohol Use: 0 Number of Drinks Per Day: 0 Total Drinks Per Week: 0 - Recreational Drug Use Recreational Drug Use: No - Living Situation & Occupation Living situation: Reports: Other Occupation: Retired ED ROS GENERAL - Review of Systems Review Of Systems: See Below Constitutional: Denies: Fever Respiratory: Denies: Shortness of Breath Cardiovascular: Denies: Chest Pain GI/Abdominal: Reports: Abdominal Pain, Decreased Appetite, Melena, Vomiting. Denies: Diarrhea ED EXAM, GI/ABD - Physical Exam Exam: See Below Exam Limited By: Other (dementia) General Appearance: Alert, WD/WN, No Apparent Distress Ears: Normal External Exam Throat/Mouth: Normal Inspection, Normal Lips, Normal Voice, No Airway Compromise Respiratory/Chest: No Respiratory Distress, Lungs Clear, Normal Breath Sounds Cardiovascular: Normal Peripheral Pulses, Regular Rate, Rhythm, No Murmur GI/Abdominal Exam: Normal Bowel Sounds, Soft, Non-Tender Rectal (Female) Exam: Normal Exam, Normal Rectal Tone, Heme + Stool Neurological: Alert, Confused Psychiatric: Normal Affect, Normal Mood Skin Exam: Warm, Dry, Normal Color EKG INTERPRETATION EKG Date: 09/24/17 Time: 17:20 Rhythm: Other (SVT) Rate (Beats/Min): 145 [place]: Normal P-Wave: Present QRS: Normal ST-T: Normal QT: Normal EKG Interpretation Comments: initial EKG at 17:23: SVT at 145 bpm. Reviewed by myself and Dr. Frey. Repeat EKG at 19:03 (after 6mg IV adenosine, 10mg cardizem bolus and on a 10mg cardizem drip) shows NSR at 87. No acute changes. Reviewed by myself and Dr. Frey. Course - Vital Signs Last Recorded V/S: Last Vital Signs Temp 36.6 C 09/24/17 16:44 Pulse 90 09/24/17 20:36 Resp 18 09/24/17 20:36 BP 108/82 09/24/17 20:36 Pulse Ox 93 L 09/24/17 20:36 - Orders/Labs/Meds Orders: Active Orders 24 hr Category Date Time Status EKG 12 Lead [EKG Documentation Completion] [RC] STAT Care 09/24/17 17:00 Active Peripheral IV Care [RC] . DIRECTED Care 09/24/17 17:01 Active Chest 1V Frontal [CR] Stat Exams 09/24/17 17:04 Taken UA W/MICROSCOPIC [URIN] Stat Lab 09/24/17 17:00 Uncollected Diltiazem 125 mg Med 09/24/17 18:00 Active Sodium Chloride 0.9% [Normal Saline] 100 ml IV TITRATE Sodium Chloride 0.9% [Normal Saline] 1,000 ml Med 09/24/17 17:04 Active IV ONETIME Sodium Chloride 0.9% [Saline Flush] Med 09/24/17 17:00 Active 10 ml FLUSH ASDIRECTED PRN Peripheral IV Insertion Adult [OM.PC] Routine Oth 09/24/17 17:00 Ordered Medication Orders Sodium Chloride (Normal Saline) 1,000 mls @ 75 mls/hr IV ONETIME ONE Stop: 09/25/17 06:23 Last Admin: 09/24/17 17:55 Dose: 75 mls/hr Diltiazem HCl 125 mg/ Sodium (Chloride) 125 mls @ 10 mls/hr IV TITRATE EDWARD; 10 MG/HR PRN Reason: Protocol Last Titration: 09/24/17 19:47 Dose: 0 mg/hr, 0 mls/hr Titration: 09/24/17 19:09 Dose: 5 mg/hr, 5 mls/hr Admin: 09/24/17 18:11 Dose: 10 mg/hr, 10 mls/hr Sodium Chloride (Saline Flush) 10 ml FLUSH ASDIRECTED PRN PRN Reason: Keep Vein Open Last Admin: 09/24/17 17:59 Dose: 10 ml Labs: Laboratory Tests 09/24/17 09/24/17 09/24/17 Range/Units 18:06 18:06 18:06 WBC 12.80 H (3.98-10.04) K/mm3 RBC 4.44 (3.98-5.22) M/mm3 Hgb 14.0 (11.2-15.7) gm/L Hct 42.3 (34.1-44.9) % MCV 95.3 H (79.4-94.8) fl MCH 31.5 (25.6-32.2) pg MCHC 33.1 (32.2-35.5) g/dl RDW Std Deviation 49.7 H (36.4-46.3) fL Plt Count 275 (182-369) K/mm3 MPV 10.1 (9.4-12.3) fl Neutrophils % (Manual) 96 H (40-60) % Band Neutrophils % 0 (0-10) % Lymphocytes % (Manual) 3 L (20-40) % Atypical Lymphs % 0 % Monocytes % (Manual) 1 L (2-10) % Eosinophils % (Manual) 0 L (0.7-5.8) % Basophils % (Manual) 0 L (0.1-1.2) Platelet Estimate Adequate Plt Morphology Comment Normal Poikilocytosis 1+ slight Anisocytosis 1+ slight Microcytosis 1+ slight Macrocytosis 1+ slight Tear Drop Cells 1+ slight Ovalocytes 1+ slight RBC Morph Comment Abnormal PT 28.6 H (8.0-13.0) SECONDS INR 2.48 Sodium 143 (136-145) mEq/L Potassium 3.9 (3.5-5.1) mEq/L Chloride 108 H (98-107) mEq/L Carbon Dioxide 24 (21-32) mEq/L Anion Gap 14.9 (5-15) BUN 23 H (7-18) mg/dL Creatinine 1.0 (0.55-1.02) mg/dL Est Cr Clr Drug Dosing 34.30 mL/min Estimated GFR (MDRD) 53 (>60) mL/min BUN/Creatinine Ratio 23.0 H (14-18) Glucose 123 H (83-115) mg/dL Calcium 9.8 (8.5-10.1) mg/dL Total Bilirubin 0.3 (0.2-1.0) mg/dL AST 20 (15-37) U/L ALT 22 (14-59) U/L Alkaline Phosphatase 136 H (46-116) U/L Troponin I < 0.017 (0.00-0.056) ng/mL Total Protein 7.2 (6.4-8.2) g/dl Albumin 3.5 (3.4-5.0) g/dl Globulin 3.7 gm/dL Albumin/Globulin Ratio 1.0 (1-2) Lipase 84 (73-393) U/L Meds: Medications Generic Name Dose Route Start Last Admin Trade Name Freq PRN Reason Stop Dose Admin Sodium Chloride 1,000 mls @ 75 mls/hr 09/24/17 17:04 09/24/17 17:55 Normal Saline IV 09/25/17 06:23 75 mls/hr ONETIME ONE Administration Diltiazem HCl 125 mg/ Sodium 125 mls @ 10 mls/hr 09/24/17 18:00 09/24/17 19: 47 Chloride IV 0 mg/hr TITRATE EDWARD 0 mls/hr Protocol Titration 10 MG/HR Sodium Chloride 10 ml 09/24/17 17:00 09/24/17 17:59 Saline Flush FLUSH 10 ml ASDIRECTED PRN Administration Keep Vein Open Discontinued Medications Generic Name Dose Route Start Last Admin Trade Name Freq PRN Reason Stop Dose Admin Adenosine 6 mg 09/24/17 17:38 09/24/17 17:54 Adenocard IVPUSH 09/24/17 17:39 6 mg NOW ONE Administration Adenosine Confirm 09/24/17 17:45 09/24/17 17:55 Adenocard Administered 09/24/17 17:46 Not Given Dose 6 mg .ROUTE .STK-MED ONE Adenosine Confirm 09/24/17 17:45 09/24/17 17:57 Adenocard Administered 09/24/17 17:46 Not Given Dose 12 mg .ROUTE .STK-MED ONE Diatrizoate Meglum/Diatrizoate Sod 90 ml 09/24/17 18:58 09/24/17 19:36 Gastrografin 37% PO 09/24/17 18:59 90 ml ONETIME ONE Administration Diltiazem HCl Confirm 09/24/17 17:57 09/24/17 17:57 Diltiazem Administered 09/24/17 17:58 Not Given Dose 25 mg .ROUTE .STK-MED ONE Diltiazem HCl 10 mg 09/24/17 17:55 09/24/17 17:58 Diltiazem IVPUSH 09/24/17 17:56 10 mg ONETIME ONE Administration Iopamidol 100 ml 09/24/17 18:58 09/24/17 19:36 Isovue-370 (76%) IVPUSH 09/24/17 18:59 100 ml ONETIME ONE Administration Ondansetron HCl 4 mg 09/24/17 19:05 09/24/17 19:14 Zofran IVPUSH 09/24/17 19:06 4 mg ONETIME ONE Administration - Radiology Interpretation Free Text/Narrative:: CT abdomen and pelvis Technique: Multiple axial sections were obtained from above the dome of the diaphragm inferiorly through the pubic symphysis. Intravenous and oral contrast was utilized. Delayed images were also obtained through the bladder. Comparison: Prior CT study of 01/17/[address] exam of the abdomen and pelvis dated 06/24/17. Findings: Visualized lung bases shows nothing acute. Moderately large hiatal hernia is seen. Liver shows small low-density abnormality within the dome most likely representing minimal cyst measuring 8 mm. This is seen on most recent exam and is felt to be stable. No additional abnormality seen within the liver. Spleen appears normal. Adrenal glands show no nodule. Pancreas appears within normal limits. Gallbladder shows no calcified gallstones. Low-density lesion is seen within the inferior left kidney measuring 1.8 cm. This finding is seen on prior exam and remains stable from most recent study but is not seen on baseline exam. This does not have Hounsfield unit measurements of a simple cyst and is most likely due to small hemorrhagic cyst but difficult to exclude a solid lesion. This was not mentioned on report of prior study but is identified in retrospect. This is better seen currently due to differences in contrast enhancement of the kidneys. No additional abnormality is seen within the kidneys. Aorta shows no aneurysmal dilatation. No retroperitoneal adenopathy or mesenteric abnormalities are seen. No pelvic mass or adenopathy is seen. Appendix not visualized with certainty. No bowel dilatation is seen. Delayed images shows contrast within the distal ureters and within the bladder. Mild artifact is noted within the pelvis due to left hip prosthesis. Mild scoliosis is noted within the spine with mild degenerative change. Small fat-containing umbilical hernia is incidentally noted. Impression: 1. Low-density lesion within the inferior left kidney. This is stable from most recent exam but not seen on baseline study. Findings are most likely due to small hemorrhagic cyst but difficult to completely exclude a small solid lesion. MRI would be needed to exclude solid lesion if clinically indicated. 2. Moderately large hiatal hernia and other incidental findings. Nothing acute is appreciated on CT study of the abdomen and pelvis. Chest xray shows no acute intrathoraic process. - Re-Assessments/Exams Free Text/Narrative Re-Assessment/Exam: 12/21/17 20:40 Around 17:30 the patient went to go to the bathroom. She then returned just found it to be in SVT with a rate of 150. She denied any chest pain, reported chest palpations. We attempted to do vagal maneuvers but this did not resolve her SVT. She was moved in the trauma bay and given 6 mg IV push of adenosine. When her rate slowed it appeared that she was in A. fib with RVR. She was then given a 10 mg Cardizem bolus and started on 10 mg Cardizem drip. Around 18:45 she converted to a normal sinus rhythm. Cardizem drip was turned on to 5 mg. At around 20:00 the Cardizem drip was discontinued. Dr. Frey involved the the chemical conversion. Then in the oral contrast patient did have one episode of emesis. She was given 4 mg IV Zofran. I reviewed the chest x-ray, ekg, labs and CT report with patient. Daughter would like her to stay as she is concerned about her episode of SVT in A. fib with RVR. I discussed the case with Dr. Rice, hospice on-call. He asked that I related to the patient's family that we are unable to do any colonoscopy or upper endoscopy at this time. if she does require this patient will then be required to be sent out if she does need further care for this bleed. Departure - Departure Time of Disposition: 20:45 Disposition: Admitted As Inpatient 66 Condition: Fair Clinical Impression: Abdominal pain, Paroxysmal atrial fibrillation, Heme + stool - Discharge Information Referrals: Rody Yanes PA-C [Primary Care Provider] - Forms: ED Department Discharge - My Orders Last 24 Hours: My Active Orders 09/24/17 17:00 EKG 12 Lead [EKG Documentation Completion] [RC] STAT UA W/MICROSCOPIC [URIN] Stat Sodium Chloride 0.9% [Saline Flush] 10 ml FLUSH ASDIRECTED PRN Peripheral IV Insertion Adult [OM.PC] Routine 09/24/17 17:01 Peripheral IV Care [RC] . DIRECTED 09/24/17 17:04 Chest 1V Frontal [CR] Stat Sodium Chloride 0.9% [Normal Saline] 1,000 ml IV ONETIME 09/24/17 18:00 Diltiazem 125 mg Sodium Chloride 0.9% [Normal Saline] 100 ml IV TITRATE - Assessment/Plan Last 24 Hours: My Active Orders 09/24/17 17:00 EKG 12 Lead [EKG Documentation Completion] [RC] STAT UA W/MICROSCOPIC [URIN] Stat Sodium Chloride 0.9% [Saline Flush] 10 ml FLUSH ASDIRECTED PRN Peripheral IV Insertion Adult [OM.PC] Routine 09/24/17 17:01 Peripheral IV Care [RC] . DIRECTED 09/24/17 17:04 Chest 1V Frontal [CR] Stat Sodium Chloride 0.9% [Normal Saline] 1,000 ml IV ONETIME 09/24/17 18:00 Diltiazem 125 mg Sodium Chloride 0.9% [Normal Saline] 100 ml IV TITRATE
[2017-09-24] MEDS ORDERED: Iopamidol 755 Mg/ML 100 ML Bottle IVPUSH ONE (18:58)
[2017-09-24] MEDS ORDERED: Diatrizoate Meglumine/Diatrizoate Sodium 37% 120 ML Bottle PO ONE (18:58)
[2017-09-24] MEDS ORDERED: Ondansetron 4 MG/2 ML SDV IVPUSH ONE (19:05)
--- NOTE | 2017-09-24 20:11 | CT ---
CT abdomen and pelvis Technique: Multiple axial sections were obtained from above the dome of the diaphragm inferiorly through the pubic symphysis. Intravenous and oral contrast was utilized. Delayed images were also obtained through the bladder. Comparison: Prior CT study of 01/17/[address] exam of the abdomen and pelvis dated 06/24/17. Findings: Visualized lung bases shows nothing acute. Moderately large hiatal hernia is seen. Liver shows small low-density abnormality within the dome most likely representing minimal cyst measuring 8 mm. This is seen on most recent exam and is felt to be stable. No additional abnormality seen within the liver. Spleen appears normal. Adrenal glands show no nodule. Pancreas appears within normal limits. Gallbladder shows no calcified gallstones. Low-density lesion is seen within the inferior left kidney measuring 1.8 cm. This finding is seen on prior exam and remains stable from most recent study but is not seen on baseline exam. This does not have Hounsfield unit measurements of a simple cyst and is most likely due to small hemorrhagic cyst but difficult to exclude a solid lesion. This was not mentioned on report of prior study but is identified in retrospect. This is better seen currently due to differences in contrast enhancement of the kidneys. No additional abnormality is seen within the kidneys. Aorta shows no aneurysmal dilatation. No retroperitoneal adenopathy or mesenteric abnormalities are seen. No pelvic mass or adenopathy is seen. Appendix not visualized with certainty. No bowel dilatation is seen. Delayed images shows contrast within the distal ureters and within the bladder. Mild artifact is noted within the pelvis due to left hip prosthesis. Mild scoliosis is noted within the spine with mild degenerative change. Small fat-containing umbilical hernia is incidentally noted. Impression: 1. Low-density lesion within the inferior left kidney. This is stable from most recent exam but not seen on baseline study. Findings are most likely due to small hemorrhagic cyst but difficult to completely exclude a small solid lesion. MRI would be needed to exclude solid lesion if clinically indicated. 2. Moderately large hiatal hernia and other incidental findings. Nothing acute is appreciated on CT study of the abdomen and pelvis. Diagnostic code #9
[2017-09-24] MEDS ORDERED: Polyethylene Glycol 3350 Powder 17 GM Packet PO PRN (21:37)
[2017-09-24] MEDS ORDERED: Docusate Sodium 100 MG Cap PO PRN (21:37)
[2017-09-24] MEDS ORDERED: Bisacodyl 5 MG Tab PO PRN (21:37)
[2017-09-24] MEDS ORDERED: Albuterol/Ipratropium 3.0-0.5 MG/3 ML Neb Soln NEB PRN (21:37)
[2017-09-24] MEDS ORDERED: Ondansetron 4 MG/2 ML SDV IV PRN (21:37)
[2017-09-24] MEDS ORDERED: Temazepam 7.5 MG Cap PO PRN (21:37)
--- NOTE | 2017-09-24 22:11 | PCM.HP ---
H&P History of Present Illness - General Date of Service: 09/24/17 Admit Problem/Dx: Admission Diagnosis/Problem Admission Diagnosis/Problem GI bleed not requiring more than 4 units of blood in 24 hours, ICU, or surgery Source of Information: Patient, Family, Old Records, RN, RN Notes Reviewed History Limitations: Reports: No Limitations, Other (Dementia at baseline) - History of Present Illness Initial Comments - Free Text/Narative: Yesika Henao is an 82 yo female who presented to the [facility] today with abdominal pain. She reportedly lives at the [facility]. This morning she began having abdominal pain and an episode of vomiting. She also reported a black tarry stool today. [place] [facility] in x-ray and found some air-fluid levels. She was sent to our ED for a CT and further management and care. Upon ED arrival she denied chest pain, dull pain, shortness of breath. She is on Coumadin due to A. fib and a history of PEs and DVTs. She is a history of GI bleeds and bowel obstructions. Upon arrival temperature was 36.6C. Pulse 90. Respirations 18. BP 108/82. Pulse ox 93% on room air. Labs were obtained WBC was elevated at 12.80. He was global and 14.0. She was macrocytic. Platelets were good at 175,000. Neutrophils were elevated at 96%. There is no bandemia. PT was 20.6. INR was 2.48. Sodium was normal at 143. Potassium 3.9. Chloride 108. Cardiac said 24. Anion gap 14.9. BUN 23. Creatinine 1.0. EGFR is 53. Glucose was elevated at 123. Calcium 9.8. Total bilirubin 0.3. Liver enzymes looked okay with AST at 20 ALT at 22 and alkaline phosphatase at 136. Troponin was negative less than 0.017. Abdomen was 3.5. Lipase was 84. CT of the abdomen and pelvis was obtained and compared to prior CT study performed on 01/17/14 and a more recent CT exam of the abdomen and pelvis dated 06/24/17. This is interpreted by Dr. Heath as 1. Low density lesion within the inferior left kidney. This is stable from most recent exam but not seen on baseline study. Thighs are most likely due to small hemorrhagic cyst but difficult to completely exclude a small solid lesion. MRI would be need to exclude solid lesion if clinically indicated. 2. Moderately large hiatal hernia and other incidental findings. Nothing acute is appreciated on CT study of the abdomen and pelvis. Chest x-rays obtained shows no acute intrathoracic processes. Around 17:30 the patient went to the bathroom and returned reporting chest palpitations. She denied chest pain. She was found to be in SVT with a rate of 150. Telemetry was obtained that shows what appears to be SVT at a rate of 145. This reported by the ED provider. She's moved to trauma bay and given 6 mg IV adenosine which slowed it appeared she was in A. fib with RVR. She is M given a 10 mg Cardizem bolus and started on 10 mg Cardizem drip. Around 18:45 she converted to normal sinus rhythm. Cardizem drip was then decreased to 5 mg. At 1903 repeat 12-lead EKG was obtained that showed normal sinus rhythm at 87 bpm. No acute changes. Around 20:00 Cardizem drip was discontinued. She was found to be heme positive in her stool. Patient's daughter's concern about recent cardiac events and this GI bleed. She would like the patient to be admitted here. Was indicated to the patient's daughter that our surgeon online banking specialist does not do any endoscopy and if that is needed patient will need to be transferred. They're aware of this and still would like her admitted here. She carries a history of: A. fib, heart failure, HLD, HTN, prior PE, recurrent UTI, Graves' disease, chronic back pain, DJD, anxiety, dementia, hypothyroidism. She was never a smoker. She is subsequently admitted to the medical floor on telemetry. She is a full code. Her primary care provider is Marietta Yanes PA-C at [facility]. Abdominal Pain Score (Numeric/FACES): 1 - Related Data Allergies/Adverse Reactions: Allergies Allergy/AdvReac Type Severity Reaction Status Date / Time influenza virus vaccine, Allergy Hives Verified 09/24/17 16:42 specific [Influenza Virus Vacc,Specific] Penicillins Allergy Hives Verified 09/24/17 16:42 streptomycin Allergy Hives Verified 09/24/17 16:42 tetracycline [Tetracycline] Allergy Hives Verified 09/24/17 16:42 donepezil [From Aricept] AdvReac Stomach Verified 09/24/17 16:42 Upset Home Medications: Home Meds Amitriptyline HCl 100 mg PO BEDTIME 05/23/14 [History] Levothyroxine [Synthroid] 88 mcg PO ACBREAKFAST 05/23/14 [History] Metoprolol Succinate 50 mg PO DAILY 05/23/14 [History] atorvaSTATin [Lipitor] 10 mg PO BEDTIME 05/23/14 [History] Diltiazem [Dilacor XR] 240 mg PO DAILY@0600 #30 cap.er 06/06/15 [Rx] Furosemide [Lasix] 20 mg PO BID 06/15/15 [History] LORazepam [Ativan] 0.5 - 1 mg PO Q8H PRN 12/12/15 [History] Warfarin [Coumadin] 2 mg PO DAILY 12/23/15 [History] Acetaminophen 1,000 mg PO BID 06/24/17 [History] Digoxin 62.5 mcg PO 1200 06/24/17 [History] Docusate Sodium [Colace] 100 mg PO DAILY 06/24/17 [History] Iron Aspgly&PS/B12/C/Ca/FA/Suc [Niferex-150 Forte] 1 cap PO BID 06/24/17 [ History] L. Acidophilus/Lactobac Spor [Acidophilus X-Str Captab] 1 tab PO BID 06/24/17 [ History] Memantine HCl [Namenda] 10 mg PO BID 06/24/17 [History] Ondansetron HCl [Zofran] 4 mg PO Q8H PRN 06/24/17 [History] Polyethylene Glycol 3350 [MiraLAX] 17 gm PO DAILY 06/24/17 [History] Promethazine HCl 12.5 mg PO Q4H PRN 06/24/17 [History] Famotidine [Pepcid] 20 mg PO BID #60 tablet 06/26/17 [Rx] Past Medical History - Past Health History Medical/Surgical History: Denies Medical/Surgical History HEENT History: Reports: Cataract, Impaired Vision Other HEENT History: reading Glasses Cardiovascular History: Reports: Afib, Heart Failure, High Cholesterol, Hypertension, SOB on Exertion Other Cardiovascular History: Afib Respiratory History: Reports: PE Other Respiratory History: Daughters report, "Last thursday pt came in with blood clot in L lung and bilateral legs." Pt was in the hospital for 4 days in Jun 2015. Genitourinary History: Reports: UTI, Recurrent Other Genitourinary History: graves disease CAR MOVER History: Reports: Other OB/BYN History: Hysterectomy Musculoskeletal History: Reports: Back Pain, Chronic Other Musculoskeletal History: degenrative joint disease Neurological History: Reports: Other (See Below) Psychiatric History: Reports: Anxiety, Dementia Endocrine/Metabolic History: Reports: Hypothyroidism - Infectious Disease History Infectious Disease History: Reports: Chicken Pox - Past Surgical History GI Surgical History: Reports: Hernia, Abdominal Endocrine Surgical History: Reports: None Musculoskeletal Surgical History: Reports: Hip Replacement Social & Family History - Family History Family Medical History: Noncontributory HEENT: Reports: None - Tobacco Use Smoking Status *Q: Never Smoker Second Hand Smoke Exposure: No - Caffeine Use Caffeine Use: Reports: Coffee - Alcohol Use Days Per Week of Alcohol Use: 0 Number of Drinks Per Day: 0 Total Drinks Per Week: 0 - Recreational Drug Use Recreational Drug Use: No - Living Situation & Occupation Living situation: Reports: Other Occupation: Retired H&P Review of Systems - Review of Systems: Review Of Systems: See Below Free Text/Narrative: ROS was somewhat difficult to obtain from the patient as she does have dementia. Much of the history was obtained from the family. She was essentially only complaining of a headache at this point. General: Reports: No Symptoms. Denies: Fever, Chills, Malaise, Weakness, Fatigue HEENT: Reports: No Symptoms. Denies: Ear Pain, Eye Pain, Hearing Changes, Sinus Congestion, Vertigo Pulmonary: Reports: No Symptoms. Denies: Shortness of Breath, Wheezing, Pleuritic Chest Pain, Cough, Sputum Cardiovascular: Reports: No Symptoms. Denies: Chest Pain, Palpitations, Dyspnea on Exertion, Edema, Lightheadedness, Claudication Gastrointestinal: Reports: Melena, Nausea (Resolved), Vomiting (Resolved). Denies: Abdominal Pain, Constipation, Diarrhea Genitourinary: Reports: No Symptoms. Denies: Dysuria, Frequency, Burning, Pain , Urgency, Incontinence Musculoskeletal: Reports: Back Pain (Chronic, at baseline). Denies: Neck Pain, Shoulder Pain, Arm Pain, Hand Pain, Leg Pain, Foot Pain, Muscle Pain, Muscle Stiffness Skin: Reports: No Symptoms Psychiatric: Reports: Confusion (Chronic due to dementia), Anxiety. Denies: Depression, Agitation Neurological: Reports: Headache. Denies: Dizziness, Numbness, Trouble Speaking , Difficulty Walking, Weakness, Change in Speech Hematologic/Lymphatic: Reports: No Symptoms Immunologic: Reports: No Symptoms Exam - Exam Exam: See Below - Vital Signs Vital Signs: Last Vital Signs Temp 97.8 F 09/24/17 16:44 Pulse 90 09/24/17 20:36 Resp 18 09/24/17 20:36 BP 108/82 09/24/17 20:36 Pulse Ox 93 L 09/24/17 20:36 Weight: 179 lb - Exam Quality Assessment: DVT Prophylaxis General: Alert, Cooperative. No: Mild Distress HEENT: Conjunctiva Clear, EACs Clear, EOMI, Hearing Intact, Mucosa Moist & Zaleski , Nares Patent, Normal Nasal Septum, Posterior Pharynx Clear, PERRLA Neck: Supple, Trachea Midline Lungs: Clear to Auscultation, Normal Respiratory Effort. No: Rales, Rhonchi, Rub, Stridor, Wheezing Cardiovascular: Regular Rate, Regular Rhythm, Normal S1, Normal S2 GI/Abdominal Exam: Normal Bowel Sounds, Soft, Non-Tender, No Organomegaly, No Distention, No Abnormal Bruit, No Mass, Pelvis Stable (Female) Exam: Deferred Rectal (Female) Exam: Deferred, Heme + Stool (Reported by ED provider) Back Exam: Normal Inspection, Full Range of Motion Extremities: Normal Inspection, Normal Range of Motion, Non-Tender, Normal Capillary Refill, Pedal Edema (trace) Peripheral Pulses: 2+: Radial (L), Radial (R), Posterior Tibial (L), Posterior Tibial (R), Dorsalis Pedis (L), Dorsalis Pedis (R) Skin: Warm, Dry, Intact Neurological: Cranial Nerves Intact (Grossly) Neuro Extensive - Mental Status: Alert, Normal Mood/Affect, Other (Pleasantly demented) Neuro Extensive - Motor, Sensory, Reflexes: CN II-XII Intact (Grossly) Psychiatric: Alert, Normal Affect, Normal Mood - Patient Data Result Diagrams: 09/24/17 18:06 09/24/17 18:06 *Q Meaningful Use (ADM) - VTE *Q VTE Criteria *Q: - Stroke *Q Stroke Criteria *Q: - AMI *Q AMI Criteria *Q: - Problem List (1) Occult gastrointestinal hemorrhage SNOMED Code(s): 87830817 ICD Code: R19.5 - OTHER FECAL ABNORMALITIES Status: Acute Priority: High Current Visit: Yes Onset Date: 12/12/15 Problem Details: - Pos hemocult (2) HTN (hypertension) SNOMED Code(s): 38170257 ICD Code: I10 - ESSENTIAL (PRIMARY) HYPERTENSION Status: Chronic Priority : Low Current Visit: No Qualifiers: Hypertension type: essential hypertension Qualified Code(s): I10 - Essential (primary) hypertension (3) HLD (hyperlipidemia) SNOMED Code(s): 91537251 ICD Code: E78.5 - HYPERLIPIDEMIA, UNSPECIFIED Status: Chronic Priority: Low Current Visit: No Qualifiers: Hyperlipidemia type: pure hypercholesterolemia Qualified Code(s): E78.00 - Pure hypercholesterolemia, unspecified; E78.0 - Pure hypercholesterolemia (4) Chronic back pain SNOMED Code(s): 047186594 ICD Code: M54.9 - DORSALGIA, UNSPECIFIED; G89.29 - OTHER CHRONIC PAIN Status: Chronic Priority: Low Current Visit: Yes Qualifiers: Back pain location: back pain in unspecified location Back pain laterality : unspecified Qualified Code(s): M54.9 - Dorsalgia, unspecified; G89.29 - Other chronic pain; G89.29 - Other chronic pain (5) DJD (degenerative joint disease) SNOMED Code(s): 057817907 ICD Code: M19.90 - UNSPECIFIED OSTEOARTHRITIS, UNSPECIFIED SITE Status: Chronic Priority: Low Current Visit: No Qualifiers: Osteoarthritis location: unspecified site Osteoarthritis type: unspecified Qualified Code(s): M19.90 - Unspecified osteoarthritis, unspecified site (6) Paroxysmal atrial fibrillation SNOMED Code(s): 449222351 ICD Code: I48.0 - PAROXYSMAL ATRIAL FIBRILLATION Status: Chronic Priority : Medium Current Visit: Yes (7) Congestive heart failure SNOMED Code(s): 43102587 ICD Code: I50.9 - HEART FAILURE, UNSPECIFIED Status: Chronic Priority: Medium Current Visit: No Qualifiers: Congestive heart failure type: diastolic Congestive heart failure chronicity: acute on chronic Qualified Code(s): I50.33 - Acute on chronic diastolic (congestive) heart failure (8) Dementia SNOMED Code(s): 87677052 ICD Code: F03.90 - UNSPECIFIED DEMENTIA WITHOUT BEHAVIORAL DISTURBANCE Status: Chronic Priority: Medium Current Visit: Yes Qualifiers: Dementia type: Alzheimer's disease Alzheimer's disease onset: unspecified onset Dementia behavioral disturbance: without behavioral disturbance Qualified Code(s): G30.9 - Alzheimer's disease, unspecified; F02.80 - Dementia in other diseases classified elsewhere without behavioral disturbance; F02.80 - Dementia in other diseases classified elsewhere without behavioral disturbance; F02.80 - Dementia in other diseases classified elsewhere without behavioral disturbance Problem List Initiated/Reviewed/Updated: Yes Orders Last 24hrs: Active Orders 24 hr Category Date Time Status Admission Status [Patient Status] [ADT] Routine ADT 09/24/17 21:46 Active Patient Status [ADT] Routine ADT 09/24/17 21:38 Active Ambulate [RC] PER UNIT ROUTINE Care 09/24/17 21:42 Active Antiembolic Devices [RC] BID Care 09/24/17 21:43 Active Cardiac Monitoring [RC] CONTINUOUS Care 09/24/17 21:42 Active Height and Weight [RC] 04 Care 09/24/17 21:37 Active Intake and Output [RC] 04,16 Care 09/24/17 21:42 Active Oxygen Therapy [RC] PRN Care 09/24/17 21:38 Active Pulse Oximetry [RC] PRN Care 09/24/17 21:42 Active RT Aerosol Therapy [RC] ASDIRECTED Care 09/24/17 21:44 Active Up With Assistance [RC] ASDIRECTED Care 09/24/17 21:37 Active VTE/DVT Education [RC] DAILY Care 09/24/17 21:38 Active Vital Signs [RC] Q4HR Care 09/24/17 21:38 Active Consult to Case Management [CONS] Routine Cons 09/24/17 21:37 Active OT Evaluation and Treatment [CONS] Routine Cons 09/24/17 21:37 Active PT Evaluation and Treatment [CONS] Routine Cons 09/24/17 21:37 Active Clear Liquid Diet [DIET] Diet 09/25/17 Breakfast Active Acetaminophen [Tylenol] Med 09/24/17 21:37 Ordered 650 mg PO Q4H PRN Acetaminophen/HYDROcodone [[place] 325-5 MG] Med 09/24/17 21:37 Ordered 1 tab PO Q4H PRN Albuterol/Ipratropium [DuoNeb 3.0-0.5 MG/3 ML] Med 09/24/17 21:37 Ordered 3 ml NEB Q4H PRN Bisacodyl [Dulcolax] Med 09/24/17 21:37 Ordered 5 mg PO DAILY PRN Docusate Sodium [Colace] Med 09/24/17 21:37 Ordered 100 mg PO BID PRN Docusate Sodium/Sennosides [Senna Plus] Med 09/24/17 21:37 Ordered 1 tab PO BID PRN Ondansetron [Zofran ODT] Med 09/24/17 21:37 Ordered 4 mg PO Q6H PRN Ondansetron [Zofran] Med 09/24/17 21:37 Ordered 4 mg IV Q6H PRN Pantoprazole [ProTONIX] Med 09/25/17 06:00 Ordered 40 mg PO BIDAC Polyethylene Glycol 3350 [MiraLAX] Med 09/24/17 21:37 Ordered 17 gm PO DAILY PRN Temazepam [Restoril] Med 09/24/17 21:37 Ordered 7.5 mg PO BEDTIME PRN Antiembolic Hose [OM.PC] Per Unit Routine Oth 09/24/17 21:42 Ordered Resuscitation Status Routine Resus Stat 09/24/17 21:37 Ordered Medication Orders Acetaminophen (Tylenol) 650 mg PO Q4H PRN PRN Reason: Pain (Mild 1-3)/fever Hydrocodone Bitart/Acetaminophen ([place] 325-5 Mg) 1 tab PO Q4H PRN PRN Reason: Pain (moderate 4-6) Albuterol/Ipratropium (Duoneb 3.0-0.5 Mg/3 Ml) 3 ml NEB Q4H PRN PRN Reason: Shortness Of Breath/wheezing Bisacodyl (Dulcolax) 5 mg PO DAILY PRN PRN Reason: Constipation Docusate Sodium (Colace) 100 mg PO BID PRN PRN Reason: Constipation Sodium Chloride (Normal Saline) 1,000 mls @ 75 mls/hr IV ONETIME ONE Stop: 09/25/17 06:23 Last Admin: 09/24/17 17:55 Dose: 75 mls/hr Diltiazem HCl 125 mg/ Sodium (Chloride) 125 mls @ 10 mls/hr IV TITRATE EDWARD; 10 MG/HR PRN Reason: Protocol Last Titration: 09/24/17 19:47 Dose: 0 mg/hr, 0 mls/hr Titration: 09/24/17 19:09 Dose: 5 mg/hr, 5 mls/hr Admin: 09/24/17 18:11 Dose: 10 mg/hr, 10 mls/hr Ondansetron HCl (Zofran Odt) 4 mg PO Q6H PRN PRN Reason: nausea, able to take PO Ondansetron HCl (Zofran) 4 mg IV Q6H PRN PRN Reason: Nausea/Vomiting Pantoprazole Sodium (Protonix) 40 mg PO BIDAC EDWARD Polyethylene Glycol (Miralax) 17 gm PO DAILY PRN PRN Reason: Constipation Senna/Docusate Sodium (Senna Plus) 1 tab PO BID PRN PRN Reason: Constipation Sodium Chloride (Saline Flush) 10 ml FLUSH ASDIRECTED PRN PRN Reason: Keep Vein Open Last Admin: 09/24/17 17:59 Dose: 10 ml Temazepam (Restoril) 7.5 mg PO BEDTIME PRN PRN Reason: Sleep Assessment/Plan Comment:: I/P: Acute: Occult GI bleed -Abdominal pain reported earlier in day accompanied by nausea, vomiting, and melonic stool x1. -Has prior Hx/o GI bleeds and bowel obstructions -On warfarin for prior A-fib, DVT, PE -Hgb 14.0 -Hct 42.3 -INR 2.48 -CT scan negative for acute findings -Heme positive in stool -Denies any abdominal pain now -Will place on clear liquids diet and advance as tolerated -Consider GS consult - surgeon online banking specialist does not perform endoscopy -This was communicated to family as patient could need transfer if condition worsens -They would like her to remain here -Will hold warfarin for now -PPI -IV fluids as ordered -Follow AM labs A. fib with RVR -In ER began having palpitations after using restroom around 17:30 -Was found to be in what appeared to be SVT with a rate of 150. -6mg of adenosine given - when rate slowed it appeared she was in A-fib with RVR -Hx/o paroximal A-fib - on home digoxin and Coumadin. -10mg cardizem bolus given followed by 10mg Cardizem drip - converted to NSR around 18:45 -Drip discontinued around 20:00 - remained in NSR -Denies any CP, SOB, or palpitations currently -Troponin negative -Telemetry -? of if she was able to keep down any home cardiac meds prior in day with vomiting -Resume home medications -Monitor for rhythm changes Incidental kidney lesion -CT scan notes low-density lesion within inferior left kidney -Stable from most recent study but not seen on baseline study -Most likely due to small hemorrhagic cyst but difficult to completely exclude small lesion -MRI would be needed to exclude solid lesion if clinically indicated -PCP to investigate further if warranted Chronic: A-fib - as above CHF HLD HTN Hx/o PE and DVT Recurrent UTIs Graves disease Back pain - stable DJD Anxiety Dementia Hypothyroidism Plan: Admit to medical floor on telemetry CM for discharge planning PT/OT Routine AM labs Home medications as ordered GI prophylaxis: PPI DVT/PE prophylaxis: CITLALLI Hose, ambulation Other orders as indicated above Code status: Full code. PCP: Marietta Yanes PA-C at [facility] in [place]
[2017-09-24] MEDS: Acetaminophen 325 MG Tab PO PRN (22:34)
[2017-09-24] MEDS ORDERED: hydrALAZINE 20 MG/ML SDV IVPUSH PRN (22:46)
[2017-09-24] MEDS ORDERED: LORazepam 1 MG Tab PO PRN (22:50)
[2017-09-24] MEDS: Ondansetron 4 MG Tab.DIS PO PRN (23:04)
[2017-09-25] MEDS: Metoprolol Tartrate 5 MG/5 ML SDV IVPUSH PRN (03:24)
[2017-09-25] MEDS: Acetaminophen 325 MG Tab PO PRN (03:28)
[2017-09-25] MEDS: Diltiazem 240 MG Cap.ER PO SCH ×2 (04:16→05:49)
[2017-09-25] MEDS: Acetaminophen/HYDROcodone 325-5 MG Tab PO PRN ×2 (04:16→16:19)
[2017-09-25] MEDS: Pantoprazole 40 MG Tab.CR PO SCH ×2 (06:03→16:14)
[2017-09-25] MEDS: Furosemide 20 MG Tab PO SCH ×2 (06:03→14:11)
[2017-09-25] MEDS: Levothyroxine 88 MCG Tab PO SCH (06:03)
--- NOTE | 2017-09-25 08:15 | CR ---
Chest: Portable view of the chest was obtained. Comparison: Prior chest x-ray of 06/24/17. Slight scarring is noted within both lung bases. Moderately large hiatal hernia is seen. Heart size is within normal limits for portable technique. Tortuous thoracic aorta is seen. Lungs are clear with no acute infiltrates. No gross bony abnormality is seen. Impression: 1. Incidental findings. Nothing acute is identified on portable chest x-ray. Diagnostic code #2
--- NOTE | 2017-09-25 08:20 | PCM.PN ---
- General Info Date of Service: 09/25/17 Admission Dx/Problem (Free Text): Admission Diagnosis/Problem Admission Diagnosis/Problem GI bleed not requiring more than 4 units of blood in 24 hours, ICU, or surgery Subjective Update: In to see Yesika today. She is sitting on the edge of bed. It is reported to me by nursing that overnight her heart rate elevated again into the 160s with sinus rhythm. This is while she was attempting to use the bathroom. She was catheterized by nursing with over 500 mL output. She is also given multiple medications due to this increased heart rate and home medications being ordered. Today her blood pressure was found to be somewhat low. She was given 250 mL bolus. 75 mL normal saline continues. Blood pressure and heart rate have now stabilized. Unfortunately she is a very poor historian and her story changes often. She has been nauseous. Scopolamine patch ordered along with scheduled Zofran. Patient was found by nursing in bathroom. Patient reportedly had a bowel movement and vomited. She is a high fall risk Patient has had several very small bowel movements today that are all black and tarry in color. She is still on clear liquid diet. A.m. hemoglobin was good. She was hypokalemic this morning and supplementation as ordered. We'll continue to monitor. Functional Status: Reports: Pain Controlled, Tolerating Diet, Ambulating, Urinating, New Symptoms (vomiting ) - Review of Systems General: Reports: No Symptoms. Denies: Fever, Weakness, Fatigue, Malaise, Chills, Night Sweats HEENT: Reports: No Symptoms. Denies: Ear Pain, Headaches, Visual Changes Pulmonary: Reports: No Symptoms. Denies: Shortness of Breath, Pleuritic Chest Pain, Cough, Sputum Cardiovascular: Reports: No Symptoms. Denies: Chest Pain, Palpitations, Dyspnea on Exertion, Lightheadedness Gastrointestinal: Reports: Melena, Nausea, Vomiting. Denies: Abdominal Pain, Constipation Genitourinary: Reports: No Symptoms. Denies: Dysuria, Frequency, Burning, Pain , Urgency Musculoskeletal: Reports: Back Pain (chronic - at baseline ). Denies: Neck Pain , Shoulder Pain, Arm Pain, Hand Pain Skin: Reports: No Symptoms Neurological: Reports: No Symptoms Psychiatric: Reports: Confusion (At baseline) Systems Review Comment:: As noted patient does have dementia and her story changes frequently. She is a very poor historian. - Patient Data Vitals - Most Recent: Last Vital Signs Temp 98.8 F 09/24/17 23:48 Pulse 62 09/25/17 06:37 Resp 18 09/24/17 23:48 BP 120/71 09/25/17 06:37 Pulse Ox 94 L 09/25/17 06:37 Weight - Most Recent: 177 lb 6.4 oz I&O - Last 24 Hours: Intake & Output 09/24/17 09/25/17 09/25/17 22:59 06:59 14:59 Intake Total 624 Balance 624 Lab Results Last 24 Hours: Laboratory Results - last 24 hr 09/24/17 09/25/17 09/25/17 Range/Units 23:15 05:40 06:30 WBC 8.21 (3.98-10.04) K/mm3 RBC 3.87 L (3.98-5.22) M/mm3 Hgb 12.1 (11.2-15.7) gm/L Hct 37.4 (34.1-44.9) % MCV 96.6 H (79.4-94.8) fl MCH 31.3 (25.6-32.2) pg MCHC 32.4 (32.2-35.5) g/dl RDW Std Deviation 49.9 H (36.4-46.3) fL Plt Count 280 (182-369) K/mm3 MPV 10.4 (9.4-12.3) fl Neut % (Auto) 84.3 H (34.0-71.1) % Lymph % (Auto) 10.0 L (19.3-51.7) % [place] % (Auto) 4.9 (4.7-12.5) % Eos % (Auto) 0.7 (0.7-5.8) Baso % (Auto) 0.0 L (0.1-1.2) % Neut # (Auto) 6.92 H (1.56-6.13) K/mm3 Lymph # (Auto) 0.82 L (1.18-3.74) K/mm3 [place] # (Auto) 0.40 H (0.24-0.36) K/mm3 Eos # (Auto) 0.06 (0.04-0.36) K/mm3 Baso # (Auto) 0.00 L (0.01-0.08) K/mm3 PT (8.0-13.0) SECONDS INR Sodium (136-145) mEq/L Potassium (3.5-5.1) mEq/L Chloride (98-107) mEq/L Carbon Dioxide (21-32) mEq/L Anion Gap (5-15) BUN (7-18) mg/dL Creatinine (0.55-1.02) mg/dL Est Cr Clr Drug Dosing mL/min Estimated GFR (MDRD) (>60) mL/min BUN/Creatinine Ratio (14-18) Glucose (83-115) mg/dL Calcium (8.5-10.1) mg/dL Magnesium (1.8-2.4) mg/dl C-Reactive Protein (<1.0) mg/dL NT-Pro-B Natriuret Pep (0-450) pg/mL Urine Color Yellow (Yellow) Urine Appearance Clear (Clear) Urine pH 6.0 (5.0-8.0) Ur Specific [place] 1.020 (1.005-1.030) Urine Protein 1+ H (Negative) Urine Glucose (UA) Negative (Negative) Urine Ketones Negative (Negative) Urine Occult Blood Negative (Negative) Urine Nitrite Negative (Negative) Urine Bilirubin Negative (Negative) Urine Urobilinogen 0.2 (0.2-1.0) Ur Leukocyte Esterase Negative (Negative) Urine RBC Not seen (0-5) /hpf Urine WBC 0-5 (0-5) /hpf Ur Epithelial Cells 0-5 (0-5) /hpf Urine Bacteria Few (FEW) /hpf Urine Mucus Not seen (FEW) /hpf MRSA (PCR) Negative 09/25/17 09/25/17 Range/Units 06:30 06:30 WBC (3.98-10.04) K/mm3 RBC (3.98-5.22) M/mm3 Hgb (11.2-15.7) gm/L Hct (34.1-44.9) % MCV (79.4-94.8) fl MCH (25.6-32.2) pg MCHC (32.2-35.5) g/dl RDW Std Deviation (36.4-46.3) fL Plt Count (182-369) K/mm3 MPV (9.4-12.3) fl Neut % (Auto) (34.0-71.1) % Lymph % (Auto) (19.3-51.7) % [place] % (Auto) (4.7-12.5) % Eos % (Auto) (0.7-5.8) Baso % (Auto) (0.1-1.2) % Neut # (Auto) (1.56-6.13) K/mm3 Lymph # (Auto) (1.18-3.74) K/mm3 [place] # (Auto) (0.24-0.36) K/mm3 Eos # (Auto) (0.04-0.36) K/mm3 Baso # (Auto) (0.01-0.08) K/mm3 PT 30.8 H (8.0-13.0) SECONDS INR 2.65 Sodium 142 (136-145) mEq/L Potassium 3.4 L (3.5-5.1) mEq/L Chloride 111 H (98-107) mEq/L Carbon Dioxide 24 (21-32) mEq/L Anion Gap 10.4 (5-15) BUN 17 (7-18) mg/dL Creatinine 0.8 (0.55-1.02) mg/dL Est Cr Clr Drug Dosing 42.88 mL/min Estimated GFR (MDRD) > 60 (>60) mL/min BUN/Creatinine Ratio 21.3 H (14-18) Glucose 99 (83-115) mg/dL Calcium 8.5 (8.5-10.1) mg/dL Magnesium 2.0 (1.8-2.4) mg/dl C-Reactive Protein 3.7 H* (<1.0) mg/dL NT-Pro-B Natriuret Pep 1293 H (0-450) pg/mL Urine Color (Yellow) Urine Appearance (Clear) Urine pH (5.0-8.0) Ur Specific [place] (1.005-1.030) Urine Protein (Negative) Urine Glucose (UA) (Negative) Urine Ketones (Negative) Urine Occult Blood (Negative) Urine Nitrite (Negative) Urine Bilirubin (Negative) Urine Urobilinogen (0.2-1.0) Ur Leukocyte Esterase (Negative) Urine RBC (0-5) /hpf Urine WBC (0-5) /hpf Ur Epithelial Cells (0-5) /hpf Urine Bacteria (FEW) /hpf Urine Mucus (FEW) /hpf MRSA (PCR) Med Orders - Current: Current Medications Acetaminophen (Tylenol) 650 mg PO Q4H PRN PRN Reason: Pain (Mild 1-3)/fever Last Admin: 09/25/17 03:28 Dose: 650 mg Hydrocodone Bitart/Acetaminophen ([place] 325-5 Mg) 1 tab PO Q4H PRN PRN Reason: Pain (moderate 4-6) Last Admin: 09/25/17 04:16 Dose: 1 tab Albuterol/Ipratropium (Duoneb 3.0-0.5 Mg/3 Ml) 3 ml NEB Q4H PRN PRN Reason: Shortness Of Breath/wheezing Amitriptyline HCl (Elavil) 100 mg PO BEDTIME [place]WARD Bisacodyl (Dulcolax) 5 mg PO DAILY PRN PRN Reason: Constipation Digoxin (Lanoxin) 62.5 mcg PO 1200 [facility] Diltiazem HCl (Dilacor Xr) 240 mg PO DAILY@0600 [facility] Last Admin: 09/25/17 05:49 Dose: Not Given Docusate Sodium (Colace) 100 mg PO BID PRN PRN Reason: Constipation Furosemide (Lasix) 20 mg PO BIDDIURETIC [facility] Last Admin: 09/25/17 06:03 Dose: 20 mg Hydralazine HCl (Apresoline) 10 mg IVPUSH Q6H PRN PRN Reason: Hypertension Levothyroxine Sodium (Synthroid) 88 mcg PO ACBREAKFAST [facility] Last Admin: 09/25/17 06:03 Dose: 88 mcg Lorazepam (Ativan) 1 mg PO Q8H PRN PRN Reason: Anxiety Magnesium Sulfate (Pharmacy To Dose - Magnesium Replacement) 0 dose .XX ASDIRECTED PRN PRN Reason: RX TO WATCH MAG LEVELS Memantine (Namenda) 10 mg PO BID [facility] Metoprolol Succinate (Toprol Xl) 50 mg PO DAILY [facility] Metoprolol Tartrate (Lopressor) 5 mg IVPUSH Q4H PRN PRN Reason: Tachycardia Last Admin: 09/25/17 03:24 Dose: 5 mg Ondansetron HCl (Zofran Odt) 4 mg PO Q6H PRN PRN Reason: nausea, able to take PO Last Admin: 09/24/17 23:04 Dose: 4 mg Ondansetron HCl (Zofran) 4 mg IV Q6H PRN PRN Reason: Nausea/Vomiting Pantoprazole Sodium (Protonix) 40 mg PO BIDAC [facility] Last Admin: 09/25/17 06:03 Dose: 40 mg Polyethylene Glycol (Miralax) 17 gm PO DAILY PRN PRN Reason: Constipation Polysaccharide Iron Complex (Ferrex 150) 150 mg PO BID [facility] Potassium Chloride (Pharmacy To Dose - Potassium Replacement) 0 dose .XX ASDIRECTED PRN PRN Reason: RX TO WATCH K LEVELS Saccharomyces Boulardii (Florastor) 250 mg PO BID [facility] Senna/Docusate Sodium (Senna Plus) 1 tab PO BID PRN PRN Reason: Constipation Sodium Chloride (Saline Flush) 10 ml FLUSH ASDIRECTED PRN PRN Reason: Keep Vein Open Last Admin: 09/24/17 17:59 Dose: 10 ml Temazepam (Restoril) 7.5 mg PO BEDTIME PRN PRN Reason: Sleep Discontinued Medications Adenosine (Adenocard) 6 mg IVPUSH NOW ONE Stop: 09/24/17 17:39 Last Admin: 09/24/17 17:54 Dose: 6 mg Adenosine (Adenocard) Confirm Administered Dose 6 mg .ROUTE .STK-MED ONE Stop: 09/24/17 17:46 Last Admin: 09/24/17 17:55 Dose: Not Given Adenosine (Adenocard) Confirm Administered Dose 12 mg .ROUTE .STK-MED ONE Stop: 09/24/17 17:46 Last Admin: 09/24/17 17:57 Dose: Not Given Diatrizoate Meglum/Diatrizoate Sod (Gastrografin 37%) 90 ml PO ONETIME ONE Stop: 09/24/17 18:59 Last Admin: 09/24/17 19:36 Dose: 90 ml Diltiazem HCl (Diltiazem) Confirm Administered Dose 25 mg .ROUTE .STK-MED ONE Stop: 09/24/17 17:58 Last Admin: 09/24/17 17:57 Dose: Not Given Diltiazem HCl (Diltiazem) 10 mg IVPUSH ONETIME ONE Stop: 09/24/17 17:56 Last Admin: 09/24/17 17:58 Dose: 10 mg Sodium Chloride (Normal Saline) 1,000 mls @ 75 mls/hr IV ONETIME ONE Stop: 09/25/17 06:23 Last Admin: 09/24/17 17:55 Dose: 75 mls/hr Diltiazem HCl 125 mg/ Sodium (Chloride) 125 mls @ 10 mls/hr IV TITRATE EDWARD; 10 MG/HR PRN Reason: Protocol Last Titration: 09/24/17 19:47 Dose: 0 mg/hr, 0 mls/hr Iopamidol (Isovue-370 (76%)) 100 ml IVPUSH ONETIME ONE Stop: 09/24/17 18:59 Last Admin: 09/24/17 19:36 Dose: 100 ml Ondansetron HCl (Zofran) 4 mg IVPUSH ONETIME ONE Stop: 09/24/17 19:06 Last Admin: 09/24/17 19:14 Dose: 4 mg - Exam Quality Assessment: DVT Prophylaxis General: Alert, Cooperative, No Acute Distress HEENT: Pupils Equal, Pupils Reactive, EOMI, Mucous Membr. Moist/[place] Neck: Supple, Trachea Midline, No JVD, No Thyromegaly Lungs: Clear to Auscultation, Normal Respiratory Effort Cardiovascular: Regular Rate, Regular Rhythm, No Murmurs GI/Abdominal Exam: Normal Bowel Sounds, Soft, Non-Tender, No Organomegaly, No Distention, No Abnormal Bruit, No Mass, Pelvis Stable (Female) Exam: Deferred Back Exam: Normal Inspection, Full Range of Motion Extremities: Normal Inspection, Normal Range of Motion, Non-Tender, No Pedal Edema, Normal Capillary Refill Peripheral Pulses: 2+: Radial (L), Radial (R), Posterior Tibial (L), Posterior Tibial (R), Dorsalis Pedis (L), Dorsalis Pedis (R) Skin: Warm, Dry, Intact Neurological: No New Focal Deficit Psy/Mental Status: Alert, Normal Affect, Normal Mood - Problem List & Annotations (1) Occult gastrointestinal hemorrhage SNOMED Code(s): 98451628 Code(s): R19.5 - OTHER FECAL ABNORMALITIES Status: Acute Priority: High Current Visit: Yes Onset Date: 12/12/15 Annotation/Comment:: - Pos hemocult (2) HTN (hypertension) SNOMED Code(s): 96225553 Code(s): I10 - ESSENTIAL (PRIMARY) HYPERTENSION Status: Chronic Priority : Low Current Visit: No Qualifiers: Hypertension type: essential hypertension Qualified Code(s): I10 - Essential (primary) hypertension (3) HLD (hyperlipidemia) SNOMED Code(s): 87674367 Code(s): E78.5 - HYPERLIPIDEMIA, UNSPECIFIED Status: Chronic Priority: Low Current Visit: No Qualifiers: Hyperlipidemia type: pure hypercholesterolemia Qualified Code(s): E78.00 - Pure hypercholesterolemia, unspecified; E78.0 - Pure hypercholesterolemia (4) Chronic back pain SNOMED Code(s): 548444578 Code(s): M54.9 - DORSALGIA, UNSPECIFIED; G89.29 - OTHER CHRONIC PAIN Status : Chronic Priority: Low Current Visit: Yes Qualifiers: Back pain location: back pain in unspecified location Back pain laterality : unspecified Qualified Code(s): M54.9 - Dorsalgia, unspecified; G89.29 - Other chronic pain; G89.29 - Other chronic pain (5) DJD (degenerative joint disease) SNOMED Code(s): 231660471 Code(s): M19.90 - UNSPECIFIED OSTEOARTHRITIS, UNSPECIFIED SITE Status: Chronic Priority: Low Current Visit: No Qualifiers: Osteoarthritis location: unspecified site Osteoarthritis type: unspecified Qualified Code(s): M19.90 - Unspecified osteoarthritis, unspecified site (6) Paroxysmal atrial fibrillation SNOMED Code(s): 186277770 Code(s): I48.0 - PAROXYSMAL ATRIAL FIBRILLATION Status: Chronic Priority : Medium Current Visit: Yes (7) Congestive heart failure SNOMED Code(s): 59664516 Code(s): I50.9 - HEART FAILURE, UNSPECIFIED Status: Chronic Priority: Medium Current Visit: No Qualifiers: Congestive heart failure type: diastolic Congestive heart failure chronicity: acute on chronic Qualified Code(s): I50.33 - Acute on chronic diastolic (congestive) heart failure (8) Dementia SNOMED Code(s): 80950930 Code(s): F03.90 - UNSPECIFIED DEMENTIA WITHOUT BEHAVIORAL DISTURBANCE Status: Chronic Priority: Medium Current Visit: Yes Qualifiers: Dementia type: Alzheimer's disease Alzheimer's disease onset: unspecified onset Dementia behavioral disturbance: without behavioral disturbance Qualified Code(s): G30.9 - Alzheimer's disease, unspecified; F02.80 - Dementia in other diseases classified elsewhere without behavioral disturbance; F02.80 - Dementia in other diseases classified elsewhere without behavioral disturbance; F02.80 - Dementia in other diseases classified elsewhere without behavioral disturbance (9) Nausea and vomiting SNOMED Code(s): 14198725 Code(s): R11.2 - NAUSEA WITH VOMITING, UNSPECIFIED Status: Acute Current Visit: Yes (10) Hypotension SNOMED Code(s): 05427580 Code(s): I95.9 - HYPOTENSION, UNSPECIFIED Status: Acute Priority: High Current Visit: Yes Qualifiers: Hypotension type: hypotension due to drug Qualified Code(s): I95.2 - Hypotension due to drugs (11) Urinary retention SNOMED Code(s): 631159086 Code(s): R33.9 - RETENTION OF URINE, UNSPECIFIED Status: Chronic Priority : Medium Current Visit: Yes - Problem List Review Problem List Initiated/Reviewed/Updated: Yes - My Orders Last 24 Hours: My Active Orders 09/24/17 21:37 Height and Weight [RC] 04 Up With Assistance [RC] ASDIRECTED Consult to Case Management [CONS] Routine OT Evaluation and Treatment [CONS] Routine PT Evaluation and Treatment [CONS] Routine Acetaminophen [Tylenol] 650 mg PO Q4H PRN Acetaminophen/HYDROcodone [Bagley 325-5 MG] 1 tab PO Q4H PRN Albuterol/Ipratropium [DuoNeb 3.0-0.5 MG/3 ML] 3 ml NEB Q4H PRN Bisacodyl [Dulcolax] 5 mg PO DAILY PRN Docusate Sodium [Colace] 100 mg PO BID PRN Docusate Sodium/Sennosides [Senna Plus] 1 tab PO BID PRN Ondansetron [Zofran ODT] 4 mg PO Q6H PRN Ondansetron [Zofran] 4 mg IV Q6H PRN Polyethylene Glycol 3350 [MiraLAX] 17 gm PO DAILY PRN Temazepam [Restoril] 7.5 mg PO BEDTIME PRN Resuscitation Status Routine 09/24/17 21:38 Oxygen Therapy [RC] PRN VTE/DVT Education [RC] DAILY Vital Signs [RC] Q4HR 09/24/17 21:42 Ambulate [RC] PER UNIT ROUTINE Intake and Output [RC] 04,16 Antiembolic Hose [OM.PC] Per Unit Routine 09/24/17 21:43 Antiembolic Devices [RC] BID 09/24/17 21:44 RT Aerosol Therapy [RC] ASDIRECTED 09/24/17 22:46 Metoprolol Tartrate [Lopressor] 5 mg IVPUSH Q4H PRN hydrALAZINE [Apresoline] 10 mg IVPUSH Q6H PRN 09/24/17 22:50 LORazepam [Ativan] 1 mg PO Q8H PRN 09/24/17 22:54 Precautions [COMM] Routine 09/24/17 23:32 Magnesium Rep Pharmacy to Dose [Pharmacy to Dose - Magnesium Replacement] 0 dose .XX ASDIRECTED PRN Potassium Rep Pharmacy to Dose [Pharmacy to Dose - Potassium Replacement] 0 dose .XX ASDIRECTED PRN 09/25/17 06:00 Diltiazem [Dilacor XR] 240 mg PO DAILY@0600 Furosemide [Lasix] 20 mg PO BIDDIURETIC Levothyroxine [Synthroid] 88 mcg PO ACBREAKFAST Pantoprazole [ProTONIX] 40 mg PO BIDAC 09/25/17 09:00 Iron Polysaccharides Complex [Ferrex 150] 150 mg PO BID Memantine [Namenda] 10 mg PO BID Metoprolol Succinate [Toprol XL] 50 mg PO DAILY Saccharomyces Boulardii [Florastor] 250 mg PO BID 09/25/17 12:00 Digoxin [Lanoxin] 62.5 mcg PO 1200 09/25/17 21:00 Amitriptyline [Elavil] 100 mg PO BEDTIME 09/25/17 Breakfast Clear Liquid Diet [DIET] 09/26/17 05:11 BASIC METABOLIC PANEL,BMP [CHEM] AM CBC WITH AUTO DIFF [HEME] AM CRP [C-REACTIVE PROTEIN] [CHEM] AM INR,PT,PROTHROMBIN TIME [COAG] AM MAGNESIUM [CHEM] AM 09/27/17 05:11 BASIC METABOLIC PANEL,BMP [CHEM] AM CBC WITH AUTO DIFF [HEME] AM CRP [C-REACTIVE PROTEIN] [CHEM] AM INR,PT,PROTHROMBIN TIME [COAG] AM MAGNESIUM [CHEM] AM 09/28/17 05:11 BASIC METABOLIC PANEL,BMP [CHEM] AM CBC WITH AUTO DIFF [HEME] AM CRP [C-REACTIVE PROTEIN] [CHEM] AM INR,PT,PROTHROMBIN TIME [COAG] AM MAGNESIUM [CHEM] AM - Plan Plan:: I/P: Acute: Occult GI bleed -Abdominal pain reported earlier in day accompanied by nausea, vomiting, and melonic stool x1. 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 - will continue to monitor Hypotension -Was restarted on home medications yesterday -Received some PRN medications as well as some home medications early -250ml fluid bolus given with 75ml continuing -Medications adjusted Nausea and vomiting -? response to hypotension vs. GI bleed -Zofran scheduled and scopolamine patch -Bilious vomit with no signs of blood -She is a poor historian and switches between being nauseous and not -Continue to monitor Urinary retention -Family reports pt. has had issues for many years -Often has difficulty starting urinating and then will have minimal screen -Found to have retained urine in ED and was straight catheterized -Over 500ml of retained urine overnight when straight catheterized -Continue to monitor -Catheterize per protocol -Investigate medications for possible cause -Suggest urology consult post-discharge Incidental kidney lesion -CT scan notes low-density lesion within inferior left kidney -Stable from most recent study but not seen on baseline study -Most likely due to small hemorrhagic cyst but difficult to completely exclude small lesion -MRI would be needed to exclude solid lesion if clinically indicated -PCP to investigate further if warranted Resolved: A. fib with RVR -In ER began having palpitations after using restroom around 17:30 -Was found to be in what appeared to be SVT with a rate of 150. -6mg of adenosine given - when rate slowed it appeared she was in A-fib with RVR -Hx/o paroximal A-fib - on home digoxin and Coumadin. -10mg cardizem bolus given followed by 10mg Cardizem drip - converted to NSR around 18:45 -Drip discontinued around 20:00 - remained in NSR -Denies any CP, SOB, or palpitations currently -Troponin negative -Telemetry -? of if she was able to keep down any home cardiac meds prior in day with vomiting -Resume home medications -Monitor for rhythm changes -Overnight had episode of HR at 160. Was medicated and returned to NSR Chronic: A-fib - as above CHF HLD HTN Hx/o PE and DVT Recurrent UTIs Graves disease Back pain - stable DJD Anxiety Dementia Hypothyroidism Plan: Admit to medical floor on telemetry CM for discharge planning PT/OT Routine AM labs Home medications as ordered GI prophylaxis: PPI DVT/PE prophylaxis: CITLALLI Hose, ambulation Other orders as indicated above Code status: Full code. PCP: Marietta Yanes PA-C at [facility] in [place]
[2017-09-25] MEDS ORDERED: Metoprolol Succinate 50 MG Tab.ER PO SCH (09:00)
[2017-09-25] MEDS: Memantine 10 MG Tab PO SCH ×2 (09:31→21:32)
[2017-09-25] MEDS: Iron Polysaccharides Complex 150 MG Cap PO SCH ×2 (09:31→21:32)
[2017-09-25] MEDS: Saccharomyces Boulardii (Probiotic) 250 MG Cap PO SCH ×2 (09:31→21:32)
[2017-09-25] MEDS ORDERED: Scopolamine 1.5 MG Transdermal Patch TRDERM PRN (10:32)
[2017-09-25] MEDS: Digoxin 125 MCG Tab PO SCH (11:20)
[2017-09-25] MEDS ORDERED: Sodium Chloride 0.9% 250 ML IV ONE (11:30)
[2017-09-25] MEDS: Sodium Chloride 0.9% 1,000 ML IV SCH (11:32)
[2017-09-25] MEDS: Potassium Chloride 20 MEQ Tab.ER PO SCH ×2 (12:39→16:14)
[2017-09-25] MEDS: Ondansetron 4 MG/2 ML SDV IVPUSH SCH ×2 (13:59→21:33)
[2017-09-25] MEDS: Amitriptyline 25 MG Tab PO SCH (21:32)
[2017-09-26] MEDS: Sodium Chloride 0.9% 1,000 ML IV SCH (01:00)
[2017-09-26] MEDS: Acetaminophen/HYDROcodone 325-5 MG Tab PO PRN ×4 (01:26→21:08)
[2017-09-26] MEDS: Levothyroxine 88 MCG Tab PO SCH (05:52)
[2017-09-26] MEDS: Furosemide 20 MG Tab PO SCH ×2 (05:52→14:15)
[2017-09-26] MEDS: Pantoprazole 40 MG Tab.CR PO SCH ×2 (05:52→15:16)
[2017-09-26] MEDS: Ondansetron 4 MG/2 ML SDV IVPUSH SCH ×3 (05:52→21:08)
--- NOTE | 2017-09-26 06:49 | PCM.PN ---
- General Info Date of Service: 09/26/17 Admission Dx/Problem (Free Text): Admission Diagnosis/Problem Admission Diagnosis/Problem GI bleed not requiring more than 4 units of blood in 24 hours, ICU, or surgery Subjective Update: Follow Up Functional Status: Reports: Pain Controlled, Tolerating Diet, Ambulating, Urinating. Denies: New Symptoms - Review of Systems General: Denies: Fever, Weakness, Fatigue, Malaise, Chills HEENT: Reports: No Symptoms Pulmonary: Denies: Shortness of Breath Cardiovascular: Denies: Chest Pain Gastrointestinal: Denies: Abdominal Pain, Nausea, Vomiting Genitourinary: Reports: No Symptoms Musculoskeletal: Reports: No Symptoms Skin: Denies: Cyanosis, Mottled, Pallor, Diaphoresis Neurological: Denies: Confusion, Dizziness, Difficulty Walking, Weakness, Gait Disturbance Psychiatric: Denies: Depression, Anxiety, Agitation, Hallucinations Systems Review Comment:: No significant overnight or acute issues. Her GI symptoms are better. Although she still gets intermittent nausea/vomiting. Her Hgb remains stable at 12. No reports of rectal bleed or melenic stools. She is tolerating clear liquid diet. She reports no new complaints. - Patient Data Vitals - Most Recent: Last Vital Signs Temp 36.6 C 09/26/17 01:00 Pulse 74 09/26/17 01:00 Resp 14 09/26/17 01:00 BP 148/66 H 09/26/17 01:00 Pulse Ox 91 L 09/26/17 01:00 Weight - Most Recent: 80.467 kg I&O - Last 24 Hours: Intake & Output 09/25/17 09/25/17 09/26/17 14:59 22:59 06:59 Intake Total 780 1654 Output Total 250 Balance 780 1404 Lab Results Last 24 Hours: Laboratory Results - last 24 hr 09/25/17 09/25/17 09/25/17 Range/Units 06:30 06:30 06:30 WBC 8.21 (3.98-10.04) K/mm3 RBC 3.87 L (3.98-5.22) M/mm3 Hgb 12.1 (11.2-15.7) gm/L Hct 37.4 (34.1-44.9) % MCV 96.6 H (79.4-94.8) fl MCH 31.3 (25.6-32.2) pg MCHC 32.4 (32.2-35.5) g/dl RDW Std Deviation 49.9 H (36.4-46.3) fL Plt Count 280 (182-369) K/mm3 MPV 10.4 (9.4-12.3) fl Neut % (Auto) 84.3 H (34.0-71.1) % Lymph % (Auto) 10.0 L (19.3-51.7) % [place]lee % (Auto) 4.9 (4.7-12.5) % Eos % (Auto) 0.7 (0.7-5.8) Baso % (Auto) 0.0 L (0.1-1.2) % Neut # (Auto) 6.92 H (1.56-6.13) K/mm3 Lymph # (Auto) 0.82 L (1.18-3.74) K/mm3 Greenlee # (Auto) 0.40 H (0.24-0.36) K/mm3 Eos # (Auto) 0.06 (0.04-0.36) K/mm3 Baso # (Auto) 0.00 L (0.01-0.08) K/mm3 PT 30.8 H (8.0-13.0) SECONDS INR 2.65 Sodium 142 (136-145) mEq/L Potassium 3.4 L (3.5-5.1) mEq/L Chloride 111 H (98-107) mEq/L Carbon Dioxide 24 (21-32) mEq/L Anion Gap 10.4 (5-15) BUN 17 (7-18) mg/dL Creatinine 0.8 (0.55-1.02) mg/dL Est Cr Clr Drug Dosing 42.88 mL/min Estimated GFR (MDRD) > 60 (>60) mL/min BUN/Creatinine Ratio 21.3 H (14-18) Glucose 99 (83-115) mg/dL Calcium 8.5 (8.5-10.1) mg/dL Magnesium 2.0 (1.8-2.4) mg/dl C-Reactive Protein 3.7 H* (<1.0) mg/dL NT-Pro-B Natriuret Pep 1293 H (0-450) pg/mL 09/26/17 Range/Units 05:40 WBC 7.07 (3.98-10.04) K/mm3 RBC 3.97 L (3.98-5.22) M/mm3 Hgb 12.3 (11.2-15.7) gm/L Hct 39.3 (34.1-44.9) % MCV 99.0 H (79.4-94.8) fl MCH 31.0 (25.6-32.2) pg MCHC 31.3 L (32.2-35.5) g/dl RDW Std Deviation 52.8 H (36.4-46.3) fL Plt Count 246 (182-369) K/mm3 MPV 10.7 (9.4-12.3) fl Neut % (Auto) 65.1 (34.0-71.1) % Lymph % (Auto) 21.5 (19.3-51.7) % Greenlee % (Auto) 10.9 (4.7-12.5) % Eos % (Auto) 2.1 (0.7-5.8) Baso % (Auto) 0.1 (0.1-1.2) % Neut # (Auto) 4.60 (1.56-6.13) K/mm3 Lymph # (Auto) 1.52 (1.18-3.74) K/mm3 Greenlee # (Auto) 0.77 H (0.24-0.36) K/mm3 Eos # (Auto) 0.15 (0.04-0.36) K/mm3 Baso # (Auto) 0.01 (0.01-0.08) K/mm3 PT (8.0-13.0) SECONDS INR Sodium (136-145) mEq/L Potassium (3.5-5.1) mEq/L Chloride (98-107) mEq/L Carbon Dioxide (21-32) mEq/L Anion Gap (5-15) BUN (7-18) mg/dL Creatinine (0.55-1.02) mg/dL Est Cr Clr Drug Dosing mL/min Estimated GFR (MDRD) (>60) mL/min BUN/Creatinine Ratio (14-18) Glucose (83-115) mg/dL Calcium (8.5-10.1) mg/dL Magnesium (1.8-2.4) mg/dl C-Reactive Protein (<1.0) mg/dL NT-Pro-B Natriuret Pep (0-450) pg/mL Jeffrey Results Last 24 Hours: Microbiology 09/25/17 16:22 Influenza Type A Antigen Screen - Final Nasopharyngeal Swab - Nare, Unspecified NEGATIVE INFLUENZA A VIRUS AG Influenza Type B Antigen Screen - Final NEGATIVE INFLUENZA B VIRUS AG Med Orders - Current: Current Medications Acetaminophen (Tylenol) 650 mg PO Q4H PRN PRN Reason: Pain (Mild 1-3)/fever Last Admin: 09/25/17 03:28 Dose: 650 mg Hydrocodone Bitart/Acetaminophen ([place] 325-5 Mg) 1 tab PO Q4H PRN PRN Reason: Pain (moderate 4-6) Last Admin: 09/26/17 05:54 Dose: 1 tab Albuterol/Ipratropium (Duoneb 3.0-0.5 Mg/3 Ml) 3 ml NEB Q4H PRN PRN Reason: Shortness Of Breath/wheezing Amitriptyline HCl (Elavil) 100 mg PO BEDTIME [facility] Last Admin: 09/25/17 21:32 Dose: 100 mg Bisacodyl (Dulcolax) 5 mg PO DAILY PRN PRN Reason: Constipation Digoxin (Lanoxin) 62.5 mcg PO 1200 EDWARD Last Admin: 09/25/17 11:20 Dose: Not Given Diltiazem HCl (Cardizem Cd) 120 mg PO DAILY EDWARD Docusate Sodium (Colace) 100 mg PO BID PRN PRN Reason: Constipation Furosemide (Lasix) 20 mg PO BIDDIURETIC [facility] Last Admin: 09/26/17 05:52 Dose: 20 mg Hydralazine HCl (Apresoline) 10 mg IVPUSH Q6H PRN PRN Reason: Hypertension Sodium Chloride (Normal Saline) 1,000 mls @ 75 mls/hr IV ASDIRECTED EDWARD Last Admin: 09/25/17 11:32 Dose: 75 mls/hr Levothyroxine Sodium (Synthroid) 88 mcg PO ACBREAKFAST [facility] Last Admin: 09/26/17 05:52 Dose: 88 mcg Lorazepam (Ativan) 1 mg PO Q8H PRN PRN Reason: Anxiety Magnesium Sulfate (Pharmacy To Dose - Magnesium Replacement) 0 dose .XX ASDIRECTED PRN PRN Reason: RX TO WATCH MAG LEVELS Memantine (Namenda) 10 mg PO BID [facility] Last Admin: 09/25/17 21:32 Dose: 10 mg Metoprolol Tartrate (Lopressor) 5 mg IVPUSH Q4H PRN PRN Reason: Tachycardia Last Admin: 09/25/17 03:24 Dose: 5 mg Metoprolol Tartrate (Lopressor) 25 mg PO Q12HR [facility] Ondansetron HCl (Zofran Odt) 4 mg PO Q6H PRN PRN Reason: nausea, able to take PO Last Admin: 09/24/17 23:04 Dose: 4 mg Ondansetron HCl (Zofran) 4 mg IV Q6H PRN PRN Reason: Nausea/Vomiting Last Admin: 09/25/17 10:42 Dose: 4 mg Ondansetron HCl (Zofran) 4 mg IVPUSH Q8H [facility] Last Admin: 09/26/17 05:52 Dose: 4 mg Pantoprazole [facility]ix) [facility] Last Admin: 09/26/17 05:52 Dose: 40 mg Polyethylene Glycol (Miralax) 17 gm PO DAILY PRN PRN Reason: Constipation Polysaccharide Iron Complex (Ferrex 150) 150 mg PO BID [facility] Last Admin: 09/25/17 21:32 Dose: 150 mg Potassium Chloride (Pharmacy To Dose - Potassium Replacement) 0 dose .XX ASDIRECTED PRN PRN Reason: RX TO WATCH K LEVELS Saccharomyces Boulardii (Florastor) 250 mg PO BID [facility] Last Admin: 09/25/17 21:32 Dose: 250 mg Scopolamine (Transderm-Scop) 1.5 mg TRDERM Q72H PRN PRN Reason: nausea and vomiting Last Admin: 09/25/17 11:31 Dose: 1.5 mg Senna/Docusate Sodium (Senna Plus) 1 tab PO BID PRN PRN Reason: Constipation Sodium Chloride (Saline Flush) 10 ml FLUSH ASDIRECTED PRN PRN Reason: Keep Vein Open Last Admin: 09/24/17 17:59 Dose: 10 ml Temazepam (Restoril) 7.5 mg PO BEDTIME PRN PRN Reason: Sleep Discontinued Medications Adenosine (Adenocard) 6 mg IVPUSH NOW ONE Stop: 09/24/17 17:39 Last Admin: 09/24/17 17:54 Dose: 6 mg Adenosine (Adenocard) Confirm Administered Dose 6 mg .ROUTE .STK-MED ONE Stop: 09/24/17 17:46 Last Admin: 09/24/17 17:55 Dose: Not Given Adenosine (Adenocard) Confirm Administered Dose 12 mg .ROUTE .STK-MED ONE Stop: 09/24/17 17:46 Last Admin: 09/24/17 17:57 Dose: Not Given Diatrizoate Meglum/Diatrizoate Sod (Gastrografin 37%) 90 ml PO ONETIME ONE Stop: 09/24/17 18:59 Last Admin: 09/24/17 19:36 Dose: 90 ml Diltiazem HCl (Diltiazem) Confirm Administered Dose 25 mg .ROUTE .STK-MED ONE Stop: 09/24/17 17:58 Last Admin: 09/24/17 17:57 Dose: Not Given Diltiazem HCl (Diltiazem) 10 mg IVPUSH ONETIME ONE Stop: 09/24/17 17:56 Last Admin: 09/24/17 17:58 Dose: 10 mg Diltiazem HCl (Dilacor Xr) 240 mg PO DAILY@0600 EDWARD Last Admin: 09/25/17 05:49 Dose: Not Given Sodium Chloride (Normal Saline) 1,000 mls @ 75 mls/hr IV ONETIME ONE Stop: 09/25/17 06:23 Last Admin: 09/24/17 17:55 Dose: 75 mls/hr Diltiazem HCl 125 mg/ Sodium (Chloride) 125 mls @ 10 mls/hr IV TITRATE EDWARD; 10 MG/HR PRN Reason: Protocol Last Titration: 09/24/17 19:47 Dose: 0 mg/hr, 0 mls/hr Sodium Chloride (Normal Saline) 250 mls @ 999 mls/hr IV ONETIME ONE Stop: 09/25/17 11:45 Last Admin: 09/25/17 11:32 Dose: 999 mls/hr Iopamidol (Isovue-370 (76%)) 100 ml IVPUSH ONETIME ONE Stop: 09/24/17 18:59 Last Admin: 09/24/17 19:36 Dose: 100 ml Metoprolol Succinate (Toprol Xl) 50 mg PO DAILY EDWARD Last Admin: 09/25/17 09:31 Dose: 50 mg Ondansetron HCl (Zofran) 4 mg IVPUSH ONETIME ONE Stop: 09/24/17 19:06 Last Admin: 09/24/17 19:14 Dose: 4 mg Potassium Chloride (Klor-Con M20) 40 meq PO Q4H EDWARD Stop: 09/25/17 16:31 Last Admin: 09/25/17 16:14 Dose: 40 meq - Exam General: Alert, Oriented, Cooperative, No Acute Distress HEENT: Pupils Equal, Pupils Reactive, EOMI, Mucous Membr. Moist/[place] Neck: Supple, Trachea Midline, No JVD Lungs: Normal Respiratory Effort, Decreased Breath Sounds Cardiovascular: Irregular Rhythm GI/Abdominal Exam: Normal Bowel Sounds, Soft, Non-Tender, No Organomegaly, No Distention, No Abnormal Bruit, No Mass (Female) Exam: Deferred Back Exam: Normal Inspection, Decreased Range of Motion Extremities: Normal Inspection, Normal Range of Motion, Non-Tender, No Pedal Edema, Normal Capillary Refill Peripheral Pulses: 2+: Dorsalis Pedis (L), Dorsalis Pedis (R) Skin: Warm, Dry, Intact Neurological: No New Focal Deficit Psy/Mental Status: Alert, Normal Affect, Normal Mood - Problem List Review Problem List Initiated/Reviewed/Updated: Yes - My Orders Last 24 Hours: My Active Orders 09/25/17 06:20 Urinary Catheter Assessment [RC] ASDIRECTED 09/25/17 06:30 Insert Urinary Catheter [OM.PC] Q24H - Plan Plan:: I/P: Acute: Nausea and vomiting, Intermittent - 2/2 Large Hiatal Hernia - Zofran scheduled and scopolamine patch - Bilious vomit with no signs of blood - She is a poor historian and switches between being nauseous and not - Continue to monitor Urinary Retention - Family reports pt. has had issues for many years - Often has difficulty starting urinating and then will have minimal screen - Found to have retained urine in ED and was straight catheterized - Over 500ml of retained urine overnight when straight catheterized - Continue to monitor - Catheterize per protocol - Investigate medications for possible cause - Suggest urology consult post-discharge Large Hiatal Hernia - Been present since 2013 - She needs for be evaluated by [facility] in [place] - Continue Aspiration precaution and PPI Incidental kidney lesion -CT scan notes low-density lesion within inferior left kidney -Stable from most recent study but not seen on baseline study -Most likely due to small hemorrhagic cyst but difficult to completely exclude small lesion -MRI would be needed to exclude solid lesion if clinically indicated -PCP to investigate further if warranted Resolved: A. Fib with RVR - In ER began having palpitations after using restroom around 17:30 - Was found to be in what appeared to be SVT with a rate of 150. - 6mg of adenosine given - when rate slowed it appeared she was in A-fib with RVR - Hx/o paroximal A-fib - on home digoxin and Coumadin. - 10mg cardizem bolus given followed by 10mg Cardizem drip - converted to NSR around 18:45 - Drip discontinued around 20:00 - remained in NSR - Denies any CP, SOB, or palpitations currently - Troponin negative - Telemetry - ? of if she was able to keep down any home cardiac meds prior in day with vomiting - Resume home medications - Monitor for rhythm changes - Overnight had episode of HR at 160. Was medicated and returned to NSR S/p Occult GI bleed - Abdominal pain reported earlier in day accompanied by nausea, vomiting, and melonic stool x1. - Has prior Hx/o GI bleeds and bowel obstructions - On warfarin for prior A-fib, DVT, PE - Hgb 14.0-->12.1 - Hct 42.3-->37.4 - INR 2.48-->2.65 - CT scan negative for acute findings - Heme positive in stool - Denies any abdominal pain now - Will place on clear liquids diet and advance as tolerated - Consider [facility] consult - surgeon sheep boner does not perform endoscopy - This was communicated to family as patient could need transfer if condition worsens - They would like her to remain here - Will hold warfarin for now - PPI - IV fluids as ordered - Follow AM labs - Currently having minimal loose melanic stools. - will continue to monitor S/p Hypotension - Was restarted on home medications yesterday - Received some PRN medications as well as some home medications early - 250ml fluid bolus given with 75ml continuing - Medications adjusted Chronic: A-fib - as above, INR is supratherapeutic CHF HLD HTN Hx/o PE and DVT Recurrent UTIs Graves disease Back pain - stable DJD Anxiety Dementia Hypothyroidism Plan: She is clinically much better and has been ambulating down the vogel Routine AM labs Advance diet as tolerate GI prophylaxis: PPI DVT/PE prophylaxis: CITLALLI Hose, ambulation, warfarin held due to rectal bleed Other orders as indicated above Possible d/c in AM Code status: Full code. PCP: Marietta Yanes PA-C at [facility]
[2017-09-26] MEDS ORDERED: Scopolamine 1.5 MG Transdermal Patch TRDERM PRN (09:33)
[2017-09-26] MEDS: Metoprolol Tartrate 25 MG Tab PO SCH ×2 (09:46→20:08)
[2017-09-26] MEDS: Saccharomyces Boulardii (Probiotic) 250 MG Cap PO SCH ×2 (09:46→21:07)
[2017-09-26] MEDS: Memantine 10 MG Tab PO SCH ×2 (09:46→21:07)
[2017-09-26] MEDS: Ondansetron 4 MG Tab.DIS PO PRN (09:46)
[2017-09-26] MEDS: Iron Polysaccharides Complex 150 MG Cap PO SCH ×2 (09:46→21:07)
[2017-09-26] MEDS: Diltiazem 120 MG Cap.CD PO SCH (09:47)
[2017-09-26] MEDS: Digoxin 125 MCG Tab PO SCH (12:31)
[2017-09-26] MEDS: Amitriptyline 25 MG Tab PO SCH (21:06)
--- NOTE | 2017-09-26 22:05 | PCM.DCSUM1 ---
Discharge Summary - Hospital Course Brief History: Yesika Henao is an 82 yo female who presented to the [place] clinic with abdominal pain associated with vomiting and a one time episode of black tarry stool. Upon ED arrival she was in Atrial Fibrillation with RVR. She was subsequently admitted for medical management. - Discharge Data Discharge Date: 09/27/17 Discharge Disposition: Home, Self-Care 01 Condition: Good - Discharge Diagnosis/Problem(s) (1) Large hiatal hernia SNOMED Code(s): 37935809 ICD Code: K44.9 - DIAPHRAGMATIC HERNIA WITHOUT OBSTRUCTION OR GANGRENE Status: Chronic (2) Urinary retention SNOMED Code(s): 247543814 ICD Code: R33.9 - RETENTION OF URINE, UNSPECIFIED Status: Chronic Priority: Medium (3) Atrial fibrillation with RVR SNOMED Code(s): 421509585636720 ICD Code: I48.91 - UNSPECIFIED ATRIAL FIBRILLATION Status: Resolved (4) Occult gastrointestinal hemorrhage SNOMED Code(s): 98308315 ICD Code: R19.5 - OTHER FECAL ABNORMALITIES Status: Resolved Priority: High Onset Date: 12/12/15 Problem Details: - Pos hemocult (5) Nausea and vomiting SNOMED Code(s): 82818581 ICD Code: R11.2 - NAUSEA WITH VOMITING, UNSPECIFIED Status: Resolved Qualifiers: Vomiting type: unspecified Vomiting Intractability: non-intractable Qualified Code(s): R11.2 - Nausea with vomiting, unspecified - Patient Summary/Data Operative Procedure(s) Performed: None Complications: None Consults: Consultations 09/24/17 21:37 Consult to Case Management [CONS] Routine OT Evaluation and Treatment [CONS] Routine PT Evaluation and Treatment [CONS] Routine Labs Pending at D/C: None Recommended Follow-up Testing/Procedures: None Planned Operative Procedure(s) after DC: None Hospital Course: Patient was primarily admitted for evaluation of occult GI bleed. She carried a hx/o Atrial fibrillation on warfarin. Her Hgb was 14 grams on presentation and then dropped to 12 grams. No obvious signs of active bleeding reported and no recurrence of black tarry stool observed. We held her warfarin and monitor her INR. Her hospital course was fairly uncomplicated. However during this admission, she was symptomatic from her large hiatal hernia. But with medical treatment, she slowly improved. Patient was stable upon discharge. She was advised to see a GI specialist in [place] after discharge. She was further advised to come back or seek immediate care should her symptoms persist or get worse. She expressed understanding and in agreement with the plans as discussed above. All questions were answered. - Patient Instructions Diet: Usual Diet as Tolerated Activity: As Tolerated Driving: Do Not Drive Showering/Bathing: May Shower Notify Provider of: Fever, Increased Pain, Nausea and/or Vomiting Other/Special Instructions: - Please resume all home medications. - Recommend you see a [facility] in [place] for further eval of your large hiatal hernia. - Follow up with your doctor with repeat CBC in 1 week. - Call your doctor for any questions or concerns after discharge - Discharge Plan Home Medications: Home Meds Amitriptyline HCl 100 mg PO BEDTIME 05/23/14 [History] Levothyroxine [Synthroid] 88 mcg PO ACBREAKFAST 05/23/14 [History] Metoprolol Succinate 50 mg PO DAILY 05/23/14 [History] atorvaSTATin [Lipitor] 10 mg PO BEDTIME 05/23/14 [History] Diltiazem [Dilacor XR] 240 mg PO DAILY@0600 #30 cap.er 06/06/15 [Rx] Furosemide [Lasix] 20 mg PO BID 06/15/15 [History] LORazepam [Ativan] 0.5 - 1 mg PO Q8H PRN 12/12/15 [History] Warfarin [Coumadin] 2 mg PO DAILY 12/23/15 [History] Acetaminophen 1,000 mg PO BID 06/24/17 [History] Digoxin 62.5 mcg PO 1200 06/24/17 [History] Docusate Sodium [Colace] 100 mg PO DAILY 06/24/17 [History] Iron Aspgly&PS/B12/C/Ca/FA/Suc [Niferex-150 Forte] 1 cap PO BID 06/24/17 [ History] L. Acidophilus/Lactobac Spor [Acidophilus X-Str Captab] 1 tab PO BID 06/24/17 [ History] Memantine HCl [Namenda] 10 mg PO BID 06/24/17 [History] Ondansetron HCl [Zofran] 4 mg PO Q8H PRN 06/24/17 [History] Polyethylene Glycol 3350 [MiraLAX] 17 gm PO DAILY 06/24/17 [History] Promethazine HCl 12.5 mg PO Q4H PRN 06/24/17 [History] Famotidine [Pepcid] 20 mg PO BID #60 tablet 06/26/17 [Rx] Referrals: Rody Yanes PA-C [Primary Care Provider] - - Discharge Summary/Plan Comment DC Time >30 min.: Yes (45 mins) Discharge Summary/Plan Comment: Discharge to Home - General Info Date of Service: 09/27/17 Admission Dx/Problem (Free Text: Admission Diagnosis/Problem Admission Diagnosis/Problem GI bleed not requiring more than 4 units of blood in 24 hours, ICU, or surgery Subjective Update: Follow Up Functional Status: Reports: Pain Controlled, Tolerating Diet, Ambulating, Urinating. Denies: New Symptoms - Review of Systems General: Denies: Fever, Weakness, Fatigue, Malaise, Chills HEENT: Denies: Contact Lenses Pulmonary: Denies: Shortness of Breath Cardiovascular: Denies: Chest Pain, Dyspnea on Exertion, Lightheadedness Gastrointestinal: Reports: Flatus. Denies: Abdominal Pain, Constipation, Decreased Appetite, Diarrhea, Difficulty Swallowing, Hematochezia, Melena, Nausea, Vomiting Genitourinary: Reports: No Symptoms Musculoskeletal: Denies: No Symptoms Skin: Denies: Cyanosis, Pruritis, Rash Neurological: Denies: Confusion, Difficulty Walking, Weakness, Gait Disturbance Psychiatric: Denies: Depression, Anxiety, Agitation, Hallucinations Systems Review Comment: no significant overnight or acute issues. She was doing relatively well. She was tolerating regular diet w/o any issues. She reported no new complaints. - Patient Data Vitals - Most Recent: Last Vital Signs Temp 36.5 C 09/26/17 15:19 Pulse 72 09/26/17 15:19 Resp 16 09/26/17 15:19 BP 113/83 09/26/17 15:19 Pulse Ox 93 L 09/26/17 15:19 Weight - Most Recent: 80.467 kg I&O - Last 24 hours: Intake & Output 09/26/17 09/26/17 09/26/17 06:59 14:59 22:59 Intake Total 600 1213 1690 Output Total 1000 Balance 600 1213 690 Lab Results - Last 24 hrs: Laboratory Results - last 24 hr 09/26/17 09/26/17 09/26/17 Range/Units 05:40 05:40 05:40 WBC 7.07 (3.98-10.04) K/mm3 RBC 3.97 L (3.98-5.22) M/mm3 Hgb 12.3 (11.2-15.7) gm/L Hct 39.3 (34.1-44.9) % MCV 99.0 H (79.4-94.8) fl MCH 31.0 (25.6-32.2) pg MCHC 31.3 L (32.2-35.5) g/dl RDW Std Deviation 52.8 H (36.4-46.3) fL Plt Count 246 (182-369) K/mm3 MPV 10.7 (9.4-12.3) fl Neut % (Auto) 65.1 (34.0-71.1) % Lymph % (Auto) 21.5 (19.3-51.7) % [place] % (Auto) 10.9 (4.7-12.5) % Eos % (Auto) 2.1 (0.7-5.8) Baso % (Auto) 0.1 (0.1-1.2) % Neut # (Auto) 4.60 (1.56-6.13) K/mm3 Lymph # (Auto) 1.52 (1.18-3.74) K/mm3 [place] # (Auto) 0.77 H (0.24-0.36) K/mm3 Eos # (Auto) 0.15 (0.04-0.36) K/mm3 Baso # (Auto) 0.01 (0.01-0.08) K/mm3 PT 40.1 H (8.0-13.0) SECONDS INR 3.40 Sodium 143 (136-145) mEq/L Potassium 4.0 (3.5-5.1) mEq/L Chloride 111 H (98-107) mEq/L Carbon Dioxide 23 (21-32) mEq/L Anion Gap 13.0 (5-15) BUN 12 (7-18) mg/dL Creatinine 0.8 (0.55-1.02) mg/dL Est Cr Clr Drug Dosing 42.88 mL/min Estimated GFR (MDRD) > 60 (>60) mL/min BUN/Creatinine Ratio 15.0 (14-18) Glucose 89 (83-115) mg/dL Calcium 8.6 (8.5-10.1) mg/dL Magnesium 2.0 (1.8-2.4) mg/dl C-Reactive Protein 3.0 H* (<1.0) mg/dL PREET Results - Last 24 hrs: Microbiology 09/25/17 16:22 Influenza Type A Antigen Screen - Final Nasopharyngeal Swab - Nare, Unspecified NEGATIVE INFLUENZA A VIRUS AG Influenza Type B Antigen Screen - Final NEGATIVE INFLUENZA B VIRUS AG Med Orders - Current: Current Medications Acetaminophen (Tylenol) 650 mg PO Q4H PRN PRN Reason: Pain (Mild 1-3)/fever Last Admin: 09/25/17 03:28 Dose: 650 mg Hydrocodone Bitart/Acetaminophen ([place] 325-5 Mg) 1 tab PO Q4H PRN PRN Reason: Pain (moderate 4-6) Last Admin: 09/26/17 21:08 Dose: 1 tab Albuterol/Ipratropium (Duoneb 3.0-0.5 Mg/3 Ml) 3 ml NEB Q4H PRN PRN Reason: Shortness Of Breath/wheezing Amitriptyline HCl (Elavil) 100 mg PO BEDTIME [facility] Last Admin: 09/26/17 21:06 Dose: 100 mg Bisacodyl (Dulcolax) 5 mg PO DAILY PRN PRN Reason: Constipation Digoxin (Lanoxin) 62.5 mcg PO 1200 [place] Last Admin: 09/26/17 12:31 Dose: 62.5 mcg Diltiazem HCl (Cardizem Cd) 120 mg PO DAILY [facility] Last Admin: 09/26/17 09:47 Dose: Not Given Docusate Sodium (Colace) 100 mg PO BID PRN PRN Reason: Constipation Furosemide (Lasix) 20 mg PO BIDDIURETIC [facility] Last Admin: 09/26/17 14:15 Dose: 20 mg Hydralazine HCl (Apresoline) 10 mg IVPUSH Q6H PRN PRN Reason: Hypertension Levothyroxine Sodium (Synthroid) 88 mcg PO ACBREAKFAST [facility] Last Admin: 09/26/17 05:52 Dose: 88 mcg Lorazepam (Ativan) 1 mg PO Q8H PRN PRN Reason: Anxiety Magnesium Sulfate (Pharmacy To Dose - Magnesium Replacement) 0 dose .XX ASDIRECTED PRN PRN Reason: RX TO WATCH MAG LEVELS Memantine (Namenda) 10 mg PO BID [facility] Last Admin: 09/26/17 21:07 Dose: 10 mg Metoprolol Tartrate (Lopressor) 5 mg IVPUSH Q4H PRN PRN Reason: Tachycardia Last Admin: 09/25/17 03:24 Dose: 5 mg Metoprolol Tartrate (Lopressor) 25 mg PO Q12HR [facility] Last Admin: 09/26/17 20:08 Dose: Not Given Ondansetron HCl (Zofran Odt) 4 mg PO Q6H PRN PRN Reason: nausea, able to take PO Last Admin: 09/26/17 09:46 Dose: 4 mg Ondansetron HCl (Zofran) 4 mg IV Q6H PRN PRN Reason: Nausea/Vomiting Last Admin: 09/25/17 10:42 Dose: 4 mg Ondansetron HCl (Zofran) 4 mg IVPUSH Q8H [facility] Last Admin: 09/26/17 21:08 Dose: 4 mg Pantoprazole Sodium (Protonix) 40 mg PO BIDAC [facility] Last Admin: 09/26/17 15:16 Dose: 40 mg Polyethylene Glycol (Miralax) 17 gm PO DAILY PRN PRN Reason: Constipation Polysaccharide Iron Complex (Ferrex 150) 150 mg PO BID [facility] Last Admin: 09/26/17 21:07 Dose: 150 mg Potassium Chloride (Pharmacy To Dose - Potassium Replacement) 0 dose .XX ASDIRECTED PRN PRN Reason: RX TO WATCH K LEVELS Saccharomyces Boulardii (Florastor) 250 mg PO BID [facility] Last Admin: 09/26/17 21:07 Dose: 250 mg Scopolamine (Transderm-Scop) 1.5 mg TRDERM Q72H PRN PRN Reason: Nausea Last Admin: 09/26/17 09:48 Dose: 1.5 mg Senna/Docusate Sodium (Senna Plus) 1 tab PO BID PRN PRN Reason: Constipation Sodium Chloride (Saline Flush) 10 ml FLUSH ASDIRECTED PRN PRN Reason: Keep Vein Open Last Admin: 09/24/17 17:59 Dose: 10 ml Temazepam (Restoril) 7.5 mg PO BEDTIME PRN PRN Reason: Sleep Last Admin: 09/26/17 22:00 Dose: 7.5 mg Discontinued Medications Adenosine (Adenocard) 6 mg IVPUSH NOW ONE Stop: 09/24/17 17:39 Last Admin: 09/24/17 17:54 Dose: 6 mg Adenosine (Adenocard) Confirm Administered Dose 6 mg .ROUTE .STK-MED ONE Stop: 09/24/17 17:46 Last Admin: 09/24/17 17:55 Dose: Not Given Adenosine (Adenocard) Confirm Administered Dose 12 mg .ROUTE .STK-MED ONE Stop: 09/24/17 17:46 Last Admin: 09/24/17 17:57 Dose: Not Given Diatrizoate Meglum/Diatrizoate Sod (Gastrografin 37%) 90 ml PO ONETIME ONE Stop: 09/24/17 18:59 Last Admin: 09/24/17 19:36 Dose: 90 ml Diltiazem HCl (Diltiazem) Confirm Administered Dose 25 mg .ROUTE .STK-MED ONE Stop: 09/24/17 17:58 Last Admin: 09/24/17 17:57 Dose: Not Given Diltiazem HCl (Diltiazem) 10 mg IVPUSH ONETIME ONE Stop: 09/24/17 17:56 Last Admin: 09/24/17 17:58 Dose: 10 mg Diltiazem HCl (Dilacor Xr) 240 mg PO DAILY@0600 [place] Last Admin: 09/25/17 05:49 Dose: Not Given Sodium Chloride (Normal Saline) 1,000 mls @ 75 mls/hr IV ONETIME ONE Stop: 09/25/17 06:23 Last Admin: 09/24/17 17:55 Dose: 75 mls/hr Diltiazem HCl 125 mg/ Sodium (Chloride) 125 mls @ 10 mls/hr IV TITRATE EDWARD; 10 MG/HR PRN Reason: Protocol Last Titration: 09/24/17 19:47 Dose: 0 mg/hr, 0 mls/hr Sodium Chloride (Normal Saline) 250 mls @ 999 mls/hr IV ONETIME ONE Stop: 09/25/17 11:45 Last Admin: 09/25/17 11:32 Dose: 999 mls/hr Sodium Chloride (Normal Saline) 1,000 mls @ 75 mls/hr IV ASDIRECTED [place]WARD Last Admin: 09/26/17 01:00 Dose: 75 mls/hr Iopamidol (Isovue-370 (76%)) 100 ml IVPUSH ONETIME ONE Stop: 09/24/17 18:59 Last Admin: 09/24/17 19:36 Dose: 100 ml Metoprolol Succinate (Toprol Xl) 50 mg PO DAILY [facility] Last Admin: 09/25/17 09:31 Dose: 50 mg Ondansetron HCl (Zofran) 4 mg IVPUSH ONETIME ONE Stop: 09/24/17 19:06 Last Admin: 09/24/17 19:14 Dose: 4 mg Potassium Chloride (Klor-Con M20) 40 meq PO Q4H [place] Stop: 09/25/17 16:31 Last Admin: 09/25/17 16:14 Dose: 40 meq Scopolamine (Transderm-Scop) 1.5 mg TRDERM Q72H PRN PRN Reason: nausea and vomiting Last Admin: 09/25/17 11:31 Dose: 1.5 mg - Exam General: Reports: Alert, Oriented, Cooperative, No Acute Distress HEENT: Reports: Pupils Equal, Pupils Reactive, EOMI, Mucous Membr. Moist/[place] Neck: Reports: Supple, Trachea Midline, No JVD Lungs: Reports: Clear to Auscultation, Normal Respiratory Effort Cardiovascular: Reports: Irregular Rhythm GI/Abdominal Exam: Normal Bowel Sounds, Soft, Non-Tender, No Organomegaly, No Distention, No Abnormal Bruit, No Mass (Female) Exam: Deferred Rectal (Female) Exam: Deferred Back Exam: Reports: Normal Inspection, Decreased Range of Motion Extremities: Normal Inspection, Normal Range of Motion, Non-Tender, No Pedal Edema, Normal Capillary Refill Skin: Reports: Warm, Dry, Intact Neurological: Reports: No New Focal Deficit Psy/Mental Status: Reports: Alert, Normal Affect, Normal Mood *Q Meaningful Use (DIS) - VTE *Q VTE Criteria *Q: - Stroke *Q Stroke Criteria *Q: - AMI *Q AMI Criteria *Q:
[2017-09-27] MEDS: Furosemide 20 MG Tab PO SCH ×2 (06:43→14:17)
[2017-09-27] MEDS: Ondansetron 4 MG/2 ML SDV IVPUSH SCH ×2 (06:43→14:16)
[2017-09-27] MEDS: Levothyroxine 88 MCG Tab PO SCH (06:43)
[2017-09-27] MEDS: Pantoprazole 40 MG Tab.CR PO SCH (06:43)
[2017-09-27] MEDS: Metoprolol Tartrate 5 MG/5 ML SDV IVPUSH PRN (07:54)
[2017-09-27] MEDS ORDERED: LORazepam 2 MG/ML MDV IVPUSH ONE (08:10)
[2017-09-27] MEDS: Saccharomyces Boulardii (Probiotic) 250 MG Cap PO SCH (08:14)
[2017-09-27] MEDS: Diltiazem 120 MG Cap.CD PO SCH (08:14)
[2017-09-27] MEDS: Memantine 10 MG Tab PO SCH (08:14)
[2017-09-27] MEDS: Iron Polysaccharides Complex 150 MG Cap PO SCH (08:15)
[2017-09-27] MEDS: Metoprolol Tartrate 25 MG Tab PO SCH (08:15)
[2017-09-27] MEDS ORDERED: Diltiazem 120 MG Cap.CD PO ONE (09:10)
[2017-09-27 14:11] VITALS: BP 114/81
[2017-09-27] MEDS: Digoxin 125 MCG Tab PO SCH (14:16)
== END 2017-09-27 11:00 | disposition home or self-care (01) | DRG 379 ==
LOC: JD.ED 16:35 → JD.MS 20:39 → UNDOADMIN 20:39 → JD.MS 21:46 → UNDODISIN 09-27 11:00
PROVIDERS: ADMIT Internal Medicine; ATTEND Internal Medicine
DX: R10.9 Unspecified abdominal pain (principal); K92.2 Gastrointestinal hemorrhage, unspecified; R19.5 Other fecal abnormalities; I48.91 Unspecified atrial fibrillation; K44.9 Diaphragmatic hernia without obstruction or gangrene; E78.00 Pure hypercholesterolemia, unspecified; R33.9 Retention of urine, unspecified; R11.2 Nausea with vomiting, unspecified; I50.9 Heart failure, unspecified; E78.5 Hyperlipidemia, unspecified; I10 Essential (primary) hypertension; E05.00 Thyrotoxicosis with diffuse goiter without thyrotoxic crisis or storm; F41.9 Anxiety disorder, unspecified; F03.90 Unspecified dementia, unspecified severity, without behavioral disturbance, psychotic disturbance, mood disturbance, and anxiety; E03.9 Hypothyroidism, unspecified; Z79.01 Long term (current) use of anticoagulants; Z88.0 Allergy status to penicillin; Z88.7 Allergy status to serum and vaccine; Z88.8 Allergy status to other drugs, medicaments and biological substances; Z79.899 Other long term (current) drug therapy
CPT/HCPCS: 36415; 71010; 74177; 80053; 83690; 84484; 85025; 85610; 93005 ×2; 96361; 96365; 96366; 96375; 96376; 99285; J0153; J2405; J3490; J7030; J7040; J7050; Q9963; Q9967; 51701; 51798; 74020; 74020-26; 80048; 81001; 83735; 83880; 86140; 87641; 87804; 93010; 97162-GP; 97165-GO; 99284-25; A9270-GY; J2060